=== PATIENT | female | born 1940 | race Caucasian/White ===

== ENCOUNTER 2020-06-03 13:57 | Outpatient (CLI) | payer OTHER, SELFPAY ==
[2020-06-03 14:34] LABS: Basophils Absolute Auto 0.1 K/mm3 (0.0-0.1); Basophils Percent Auto 0.9 % (0.2-1.2); Eosinophils Absolute Auto 0.1 K/mm3 (0-0.3); Hematocrit 42.7 % (37.0-47.0); Hemoglobin 14.5 g/dL (12.0-15.0); Immature Granulocyte Absolute 0.02 K/mm3 (0.00-0.031); Immature Granulocyte Percent A 0.3 % (0-0.5); Lymphocytes Absolute Auto 2.18 K/mm3 (0.9-3.2); Lymphocytes Percent Auto 28.3 % (18.3-44.2); Mean Corpuscular Hemoglobin 32.6 pg (26-34); Mean Platelet Volume 8.8 fl (7.4-10.4); Monocytes Absolute Auto 0.8 K/mm3 (0.1-0.6); Monocytes Percent Auto 10.1 % (2.6-8.5); Neutrophils Absolute Auto 4.6 K/mm3 (1.3-6.7); Neutrophils Percent Auto 59.4 % (45.5-73.1); Platelet Count Result 285 k/mm3 (150-375); Red Blood Count 4.45 M/mm3 (4.2-5.4); Red Cell Distribution Width 12.1 % (11.5-14.5); White Blood Count 7.7 K/mm3 (4.5-10.0)
[2020-06-03 14:45] LABS: Alanine Aminotransferase 19 U/L (4-35); Albumin Level 4.4 g/dL (3.5-5.1); Alkaline Phosphatase 87 U/L (38-126); Anion Gap 11.1 mmol/L (7-16); Aspartate Amino Transferase 27 U/L (14-36); Bilirubin,Total 0.4 mg/dL (0.2-1.3); Blood Urea Nitrogen 11 mg/dL (7-17); Calcium 10.2 mg/dL (8.4-10.2); Carbon Dioxide 27 mmol/L (22-30); Chloride 102 mmol/L (98-107); Estimated Glomerular Filt Rate > 60; Glucose 82 mg/dL (65-105); Potassium 4.1 mmol/L (3.4-5.0); Sodium 136 mmol/L (137-145)
[2020-06-03 15:08] LABS: Creatinine Urine 41.7 mg/dL
[2020-06-03 15:13] LABS: MALB Creatinine Ratio 21.1 mg/g (0-30); Microalbumin Urine Random 8.8 mg/L (0-16.7)
== END 2020-06-03 13:58 | disposition home or self-care (01) ==
PROVIDERS: PCP Internal Medicine; Visit Provider Internal Medicine
DX: I10 Essential (primary) hypertension (principal)
CPT/HCPCS: 36415; 80053; 82043; 84443; 85025

== ENCOUNTER 2021-02-15 12:28 | Outpatient (CLI) | payer OTHER, SELFPAY ==
--- NOTE | ~2021-02-15 | XR_ITS ---
EXAMINATION: XR hand BI arthritis min 3V EXAM DATE: 02/15/2021 12:51 INDICATION: M19.90 - Unspecified osteoarthritis, unspecified site. TECHNIQUE: Right hand frontal, lateral and oblique projections obtained and reviewed. Left hand fron marce, lateral and oblique projections obtained and reviewed. Catchers projection of both hands. There is no prior study for comparison. FINDINGS: Right hand: There is severe triscaphe and 1st carpometacarpal joint primary osteoarthritis, moderate at the 1st MCP and IP joints. There is mild to moderate 2nd and 3rd DIP primary osteoarthritis. Othe rwise mild polyarticular osteoarthritis. There are no bony erosions identified. There are no acute f ractures identified. Left hand: Moderate triscaphe and 1st carpometacarpal joint primary osteoarthritis, mild to moderate at the 1st MCP and IP joints. Mild to moderate primary osteoarthritis 2nd MCP joint. Otherwise mild p olyarticular osteoarthritis. There are no bony erosions identified. There are no acute fractures or d islocations identified. IMPRESSION: Bilateral hand polyarticular osteoarthritis, right hand more affected. Reviewed, dictated and finalized at location A. IMPRESSION: Bilateral hand polyarticular osteoarthritis, right hand more affec james.
== END 2021-02-15 12:29 | disposition home or self-care (01) ==
PROVIDERS: PCP Internal Medicine; Visit Provider Internal Medicine
DX: M19.90 Unspecified osteoarthritis, unspecified site (principal)
CPT/HCPCS: 73130

== ENCOUNTER 2021-02-16 11:05 | Outpatient (CLI) | payer OTHER, SELFPAY ==
[2021-02-16 11:34] LABS: Basophils Absolute Auto 0.1 K/mm3 (0.0-0.1); Basophils Percent Auto 0.7 % (0.2-1.2); Eosinophils Absolute Auto 0.1 K/mm3 (0-0.3); Eosinophils Percent Auto 1.6 % (0-4.4); Hematocrit 44.1 % (37.0-47.0); Hemoglobin 14.6 g/dL (12.0-15.0); Immature Granulocyte Absolute 0.01 K/mm3 (0.00-0.031); Immature Granulocyte Percent A 0.1 % (0-0.5); Lymphocytes Absolute Auto 2.64 K/mm3 (0.9-3.2); Lymphocytes Percent Auto 32.7 % (18.3-44.2); Mean Corpuscular HGB Conc 33.1 g/dl (32-36); Mean Corpuscular Hemoglobin 31.9 pg (26-34); Mean Corpuscular Volume 96.5 fl (80-100); Monocytes Absolute Auto 0.7 K/mm3 (0.1-0.6); Monocytes Percent Auto 8.3 % (2.6-8.5); Neutrophils Absolute Auto 4.6 K/mm3 (1.3-6.7); Neutrophils Percent Auto 56.6 % (45.5-73.1); Platelet Count Result 339 k/mm3 (150-375); Red Blood Count 4.57 M/mm3 (4.2-5.4); Red Cell Distribution Width 12.1 % (11.5-14.5); White Blood Count 8.1 K/mm3 (4.5-10.0)
[2021-02-16 11:48] LABS: Alanine Aminotransferase 19 U/L (4-35); Albumin Level 4.5 g/dL (3.5-5.1); Alkaline Phosphatase 83 U/L (38-126); Anion Gap 5 mmol/L (8-16); Aspartate Amino Transferase 29 U/L (14-36); Bilirubin,Total 0.5 mg/dL (0.2-1.3); Blood Urea Nitrogen 12 mg/dL (7-17); Carbon Dioxide 30 mmol/L (22-30); Chloride 106 mmol/L (98-107); Cholesterol 200 mg/dL (0-200); Estimated Glomerular Filt Rate > 60; Glucose 100 mg/dL (65-105); HDL Direct 50 mg/dL; Potassium 4.1 mmol/L (3.4-5.0); Sodium 141 mmol/L (137-145); Triglycerides 106 mg/dL (<150)
[2021-02-16 11:58] LABS: LDL Cholesterol Direct 123 mg/dL
[2021-02-16 12:02] LABS: Erythrocyte Sedimentation Rate 16 mm/hr (0-20)
[2021-02-16 12:03] LABS: Rheumatoid Factor < 8.6 IU/ML (<12)
[2021-02-20 09:49] LABS: Anti Cyclic Citrullinated Pept <16 Units (<20)
[2021-02-20 20:29] LABS: CRP, High Sensitivity 1.5 mg/L (***)
== END 2021-02-16 11:06 | disposition home or self-care (01) ==
PROVIDERS: PCP Internal Medicine; Visit Provider Internal Medicine
DX: M19.90 Unspecified osteoarthritis, unspecified site (principal); I10 Essential (primary) hypertension; E55.9 Vitamin D deficiency, unspecified; E04.1 Nontoxic single thyroid nodule; E78.2 Mixed hyperlipidemia
CPT/HCPCS: 36415; 80053; 80061; 82306; 85025; 85652; 86141; 86200; 86430

== ENCOUNTER 2021-08-18 08:08 | Outpatient (CLI) | payer OTHER, SELFPAY ==
[2021-08-18 08:57] LABS: Alanine Aminotransferase 19 U/L (4-35); Alkaline Phosphatase 94 U/L (38-126); Anion Gap 7 mmol/L (8-16); Aspartate Amino Transferase 28 U/L (14-36); Bilirubin,Total 0.7 mg/dL (0.2-1.3); Blood Urea Nitrogen 12 mg/dL (7-17); Calcium 10.7 mg/dL (8.4-10.2); Carbon Dioxide 30 mmol/L (22-30); Chloride 103 mmol/L (98-107); Estimated Glomerular Filt Rate > 60; Glucose 103 mg/dL (65-110); Potassium 4.3 mmol/L (3.4-5.0); Sodium 140 mmol/L (137-145)
[2021-08-18 09:49] LABS: Vitamin D 25 Hydroxy 84.9 ng/mL
== END 2021-08-18 08:09 | disposition home or self-care (01) ==
PROVIDERS: PCP Internal Medicine; Visit Provider Internal Medicine
DX: E55.9 Vitamin D deficiency, unspecified (principal); I10 Essential (primary) hypertension
CPT/HCPCS: 36415; 80053; 82306; 84443

== ENCOUNTER → 2022-02-14 11:05 | Outpatient (CLI) | payer OTHER, SELFPAY ==
--- NOTE | ~2022-02-14 | DEXA_ITS ---
Bone Density Report Name: ELENITA KING Age: 81 Sex: Female Ethnicity: White Date of : 1940 Indication: postmenopausal; screening for osteoporosis; height loss; Referring Provider: JUANCHO POWER Study: Bone densitometry was performed. Exam Date: February 14, 2022 Accession number: [id number] Bone Density: Region BMD T-score Z-score Classification AP Spine (L1-L4) 0.905 -1.3 1.5 Osteopenia Femoral Neck (Left) 0.452 -3.6 -1.2 Osteoporosis Total Hip (Left) 0.577 -3.0 -0.8 Osteoporosis Femoral Neck (Right) 0.454 -3.6 -1.2 Osteoporosis Total Hip (Right) 0.588 -2.9 -0.7 Osteoporosis Total Hip Mean 0.583 -3.0 -0.8 Osteoporosis World Health Organization criteria for BMD impression classify patients as: Normal (T-score at or above -1.0), Osteopenia (T-score between -1.0 and -2.5), or Osteoporosis (T-score at or below -2.5). 10-year Fracture Risk: FRAX not reported because: Some T-score for Spine Total or Hip Total or Femoral Neck at or below -2.5 Clinical Information Provided by Patient: Smokes Has used the following medications: Vitamin D Patient maximum height was 64 Menopause Age: 49 No regular weight bearing exercise Onset of menses at age 12 Number of children 3 Impression: The patient has osteoporosis, based on the Left Femoral Neck T-score. The patient has risk factors, including: smoking. Discussion: INCREASED RISK OF FRACTURE. BONE DENSITY IS UNDESIRABLY LOW AT ONE OR MORE SKELETAL SITES, CONSISTENT WITH POSTMENOPAUSAL OSTEOPOROSIS. This patient's lowest T-score meets the World Health Organization's (WHO) criteria for osteoporosis at one or more sites (T-score -2.5 or below). In untreated patients, the risk of osteoporotic fracture increases approximately two-fold for each 1.0 SD decrease in T-score. Low bone density is not the only risk factor for fracture; also consider factors such as patient's age, frailty or poor health, risk of falling, risk of injury, previous osteoporotic fracture, family history of osteoporosis, cigarette smoking, low body weight, etc. Not everyone with low bone mineral density has osteoporosis; osteomalacia and other metabolic bone disorders should also be considered. Patients who have osteoporosis should be evaluated for specific diseases and conditions (secondary causes) that may cause or contribute to bone loss. The [place] [employer]ocrinologists (AACE) and National Osteoporosis Foundation (NOF) recommend pharmacologic intervention for all postmenopausal women whose T-score is in this range. The patient should follow a healthful lifestyle (good nutrition with adequate calcium and vitamin D, and appropriate weight-bearing exercise). Follow-Up: Consider a repeat BMD and Vertebral Fracture Assessment (VFA) exam in 2 years or sooner if medically necessa
== END ==
PROVIDERS: PCP Internal Medicine; Visit Provider Internal Medicine
DX: Z78.0 Asymptomatic menopausal state (principal); M85.88 Other specified disorders of bone density and structure, other site; M81.0 Age-related osteoporosis without current pathological fracture
CPT/HCPCS: 77080

== ENCOUNTER 2022-02-14 13:10 | Outpatient (CLI) | payer OTHER, SELFPAY ==
[2022-02-14 12:52] LABS: Basophils Absolute Auto 0.1 K/mm3 (0.0-0.1); Basophils Percent Auto 0.7 % (0.2-1.2); Eosinophils Absolute Auto 0.1 K/mm3 (0-0.3); Eosinophils Percent Auto 1.5 % (0-4.4); Hematocrit 41.2 % (37.0-47.0); Hemoglobin 13.9 g/dL (12.0-15.0); Immature Granulocyte Absolute 0.02 K/mm3 (0.00-0.031); Immature Granulocyte Percent A 0.2 % (0-0.5); Lymphocytes Absolute Auto 2.18 K/mm3 (0.9-3.2); Lymphocytes Percent Auto 26.8 % (18.3-44.2); Mean Corpuscular HGB Conc 33.7 g/dl (32-36); Mean Corpuscular Hemoglobin 32.3 pg (26-34); Mean Corpuscular Volume 95.8 fl (80-100); Mean Platelet Volume 8.7 fl (7.4-10.4); Monocytes Absolute Auto 0.9 K/mm3 (0.1-0.6); Monocytes Percent Auto 11.1 % (2.6-8.5); Neutrophils Absolute Auto 4.9 K/mm3 (1.3-6.7); Neutrophils Percent Auto 59.7 % (45.5-73.1); Platelet Count Result 275 k/mm3 (150-375); Red Cell Distribution Width 12.1 % (11.5-14.5); White Blood Count 8.1 K/mm3 (4.5-10.0)
[2022-02-14 13:03] LABS: Alanine Aminotransferase 20 U/L (4-35); Albumin Level 4.4 g/dL (3.5-5.1); Alkaline Phosphatase 87 U/L (38-126); Anion Gap 6 mmol/L (8-16); Aspartate Amino Transferase 29 U/L (14-36); Bilirubin,Total 0.3 mg/dL (0.2-1.3); Blood Urea Nitrogen 15 mg/dL (7-17); Calcium 10.1 mg/dL (8.4-10.2); Carbon Dioxide 29 mmol/L (22-30); Chloride 104 mmol/L (98-107); Cholesterol 228 mg/dL (0-200); Estimated Glomerular Filt Rate > 60; Glucose 90 mg/dL (65-110); HDL Direct 51 mg/dL; Potassium 4.1 mmol/L (3.4-5.0); Sodium 139 mmol/L (137-145); Triglycerides 119 mg/dL (<150)
[2022-02-14 13:15] LABS: LDL Cholesterol Direct 129 mg/dL
[2022-02-14 13:28] LABS: MALB Creatinine Ratio 49.7 mg/g (0-30); Microalbumin Urine Random 15.9 mg/L (0-16.7)
[2022-02-14 13:38] LABS: Vitamin D 25 Hydroxy 79.2 ng/mL
== END 2022-02-14 13:11 | disposition home or self-care (01) ==
LOC: ANHLAB 13:10
PROVIDERS: PCP Internal Medicine; Visit Provider Internal Medicine
DX: M81.0 Age-related osteoporosis without current pathological fracture (principal); E78.5 Hyperlipidemia, unspecified; Z78.0 Asymptomatic menopausal state
CPT/HCPCS: 36415; 80053; 80061; 82043; 82306; 85025

== ENCOUNTER 2022-08-12 11:19 | Outpatient (CLI) | payer OTHER, SELFPAY ==
[2022-08-12 11:46] LABS: Alanine Aminotransferase 20 U/L (6-35); Albumin Level 4.4 g/dL (3.5-5.1); Alkaline Phosphatase 92 U/L (38-126); Anion Gap 9 mmol/L (8-16); Aspartate Amino Transferase 29 U/L (14-36); Bilirubin,Total 0.4 mg/dL (0.2-1.3); Blood Urea Nitrogen 12 mg/dL (7-17); Calcium 10.1 mg/dL (8.4-10.2); Carbon Dioxide 28 mmol/L (22-30); Chloride 102 mmol/L (98-107); Cholesterol 188 mg/dL (0-200); Estimated Glomerular Filt Rate > 60; Glucose 110 mg/dL (65-110); HDL Direct 48 mg/dL; Potassium 4.3 mmol/L (3.4-5.0); Sodium 139 mmol/L (137-145); Triglycerides 92 mg/dL (<150)
[2022-08-12 11:57] LABS: LDL Cholesterol Direct 115 mg/dL
[2022-08-12 13:37] LABS: Vitamin D 25 Hydroxy 74.1 ng/mL
== END 2022-08-12 11:20 | disposition home or self-care (01) ==
PROVIDERS: PCP Internal Medicine; Visit Provider Internal Medicine
DX: E78.5 Hyperlipidemia, unspecified (principal); Z79.899 Other long term (current) drug therapy; E04.1 Nontoxic single thyroid nodule; E55.9 Vitamin D deficiency, unspecified
CPT/HCPCS: 36415; 80053; 80061; 82306; 84443

== ENCOUNTER 2022-12-04 08:39 | Emergency (ER) | payer OTHER, MEDICAID, SELFPAY ==
[2022-12-04] VITALS (9 sets, daily range): BP systolic 119–183; BP diastolic 64–101; PULSE 71–87; RESP 14–18; TEMP 36.4; O2SAT 96–100
--- NOTE | ~2022-12-04 | CT_ITS ---
EXAMINATION: CT brain wo con DATE: 12/04/2022 09:30 INDICATION: Falls. TECHNIQUE: Computed tomography (CT) of the head was performed without intravenous contrast. The mA wa s adjusted according to patient size. Iterative reconstruction technique was employed. The dose-lengt h product was 605.33 mGy-cm. COMPARISON: Head CT 06/24/2014 FINDINGS: There are small old infarcts in right cerebellum. There is an old lacunar infarct in right caudate nucleus. There is an old infarct in left occipital lobe. There are scattered areas of low att enuation in the cerebral white matter. There is no intracranial hemorrhage, acute infarction, or abno rmal intracranial mass lesion. The ventricles are normal in size. The paranasal sinuses are clear. Th ere are likely changes of ocular lens replacement surgeries. There is a small left mastoid effusion. IMPRESSION: 1. 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 2. Moderate nonspecific cerebral white matter disease, which likely represents chronic small vessel i schemic disease, worsened from 06/24/2014. Reviewed, dictated and finalized at location A. D BONER IMPRESSION: 1. 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 2. Moderate nonspecific cerebral white matter disease, which likely represents chronic small vessel ischemic disease, worsened from 06/24/2014.
--- NOTE | ~2022-12-04 | XR_ITS ---
EXAMINATION: XR ribs RT 2V w CXR 2V DATE: 12/04/2022 13:22 INDICATION: Right rib pain. TECHNIQUE: Frontal and lateral views of the chest and 2 views on 3 radiographs of the right ribs were obtained. COMPARISON: None. FINDINGS: CHEST TWO VIEWS: The lungs are hyperexpanded, consistent with emphysema. There is mild atelectasis ve rsus scarring at right lung base and mild scarring at right lung apex. A calcified left lung nodule a nd calcified left hilar and mediastinal lymph nodes are consistent with old granulomatous disease. No pleural effusion or pneumothorax. The heart size is normal. RIGHT RIBS: There are fractures of right eighth and ninth ribs. IMPRESSION: 1. Fractures of right eighth and ninth ribs. 2. Emphysema. 3. Mild atelectasis versus scarring at right lung base and mild scarring at right lung apex. Reviewed, dictated and finalized at location A. SCREEN OPERATOR IMPRESSION: 1. Fractures of right eighth and ninth ribs. 2. Emphysema. 3. Mild atelectasis versus scarring at right lung base and mild scarring at rig ht lung apex.
--- NOTE | 2022-12-04 10:23 | ECG_ITS ---
Measurements Intervals [place] Rate: 77 P: 66 GA: 151 QRS: -37 QRSD: 81 T: -18 QT: 382 QTc: 435 Interpretive Statements SINUS RHYTHM WITH SINUS ARRHYTHMIA LEFT AXIS DEVIATION LOW QRS VOLTAGE IN PRECORDIAL LEADS BORDERLINE T WAVE ABNORMALITY- INFERIOR LEADS BASELINE ARTIFACT- I, II, III, AVR, AVL, AVF, V1 BORDERLINE ECG NO PREVIOUS ECG AVAILABLE FOR COMPARISON Electronically Signed On 12-04-2022 14:06:28 JUNIOR JAVA DEVELOPER by Gasper Mercado D.O.
[2022-12-04 10:47] LABS: Basophils Percent Auto 0.4 % (0.2-1.2); Eosinophils Absolute Auto 0.1 K/mm3 (0-0.3); Hematocrit 40.4 % (37.0-47.0); Hemoglobin 13.3 g/dL (12.0-15.0); Immature Granulocyte Absolute 0.02 K/mm3 (0.00-0.031); Immature Granulocyte Percent A 0.2 % (0-0.5); Lymphocytes Absolute Auto 1.77 K/mm3 (0.9-3.2); Lymphocytes Percent Auto 19.2 % (18.3-44.2); Mean Corpuscular HGB Conc 32.9 g/dl (32-36); Mean Corpuscular Hemoglobin 32.3 pg (26-34); Mean Corpuscular Volume 98.1 fl (80-100); Mean Platelet Volume 8.4 fl (7.4-10.4); Monocytes Absolute Auto 0.8 K/mm3 (0.1-0.6); Monocytes Percent Auto 8.5 % (2.6-8.5); Neutrophils Absolute Auto 6.5 K/mm3 (1.3-6.7); Neutrophils Percent Auto 70.7 % (45.5-73.1); Platelet Count Result 336 k/mm3 (150-375); Red Blood Count 4.12 M/mm3 (4.2-5.4); Red Cell Distribution Width 12.2 % (11.5-14.5); White Blood Count 9.2 K/mm3 (4.5-10.0)
[2022-12-04 10:57] LABS: Alanine Aminotransferase 21 U/L (6-35); Alkaline Phosphatase 120 U/L (38-126); Anion Gap 3 mmol/L (8-16); Aspartate Amino Transferase 27 U/L (14-36); Bilirubin,Total 0.5 mg/dL (0.2-1.3); Blood Urea Nitrogen 13 mg/dL (7-17); Calcium 10.1 mg/dL (8.4-10.2); Carbon Dioxide 31 mmol/L (22-30); Chloride 102 mmol/L (98-107); Estimated CRCL calculation 39 ml/min; Estimated Glomerular Filt Rate > 60; Glucose 101 mg/dL (65-110); Potassium 3.8 mmol/L (3.4-5.0); Sodium 136 mmol/L (137-145)
[2022-12-04 12:15] LABS: Appearance Urine Cloudy (Clear); Bilirubin Urine Negative (Negative); Blood Urine Negative (Negative); Color Urine Yellow (Yellow); Glucose Urine UA Negative (Negative); Ketones Urine Negative (Negative); Leukocyte Esterase Ur 1+ LEU/UL (Negative); Nitrate Urine Negative (Negative); Protein Urine Negative (Negative); Specific Grav Ur 1.015 (1.001-1.035); Urobilinogen Urine 0.2 mg/dL (<2.0)
[2022-12-04 12:20] LABS: Add Urine Microscopic? YES; Amorphous Sediment Urine Few; Bacteria Urine Trace /hpf; Mucus Urine Rare /lpf; Squamous Epithelial Cell Urine Rare /hpf (Few)
--- NOTE | 2022-12-04 13:09 | ED.SYNCOPE ---
HPI - Syncope General Chief Complaint: Syncope Stated Complaint: rt sided rib pain s/p glf x 2 this week Time Seen by Provider: 12/04/22 10:33 History of Present Illness HPI narrative: Patient is an 81-year-old female who presents ER status post syncope. Patient reports she was walking at her home and then just woke up on the ground. She is unsure how she wound up there. Does not recall tripping on anything. No prodrome of racing the heart or lightheadedness/dizziness. Reports this happened to her a couple days ago as well. Related Data Home Medications Medication Instructions Recorded Confirmed aspirin 81 mg tablet,delayed 81 mg PO DAILY 01/01/20 02/21/22 release multivitamin 1 tablet PO DAILY 01/01/20 02/21/22 cholecalciferol (vitamin D3) 25 25 mcg PO DAILY 02/19/21 02/21/22 mcg (1,000 unit) capsule Allergies Allergy/AdvReac Type Severity Reaction Status Date / Time alendronate sodium Allergy Unknown Itching Verified 02/21/22 10:31 codeine Allergy Unknown Headache Verified 02/21/22 10:31 simvastatin Allergy Unknown Itching Verified 02/21/22 10:31 Review of Systems Review of Systems: All systems reviewed & are unremarkable except as noted in HPI and below Constitutional: Constitutional: Denies chills, Denies fatigue and Denies fever(s) ENT: Denies nasal congestion and Denies sore throat Cardiovascular: Cardiovascular: Denies chest pain, Denies rapid heart rate and Denies radiating jaw, neck or arm pain Respiratory: Respiratory: Denies cough and Denies dyspnea Gastrointestinal: Gastrointestinal: Denies abdominal pain, Denies nausea and Denies vomiting Neurologic: Reports syncope, Denies headache(s), Denies focal weakness and Denies numbness [facility] Past Medical History Medical History (Updated 12/04/22 @ 15:06 by Todd Yang MD) Carpal tunnel syndrome Dyslipidemia Hyperparathyroidism Osteoporosis Family History Family History Mother Family history of heart disease in male family member before age 55 Social History Social History Smoking packs per day: 1 Smoking cigarettes per day: 20.0 Years smoked: 50 Smoking pack-years: 50.00 Smoking status: Current every day smoker Tobacco type: cigarettes Second hand tobacco smoke exposure: No Alcohol intake: never Substance use: never Substance use type: does not use Exam Narrative: GENERAL: Well-appearing, well-nourished, and in no acute distress. HEAD: Normocephalic, atraumatic. EYES: PERRL and EOMI. ENT: Mucous membranes moist. CHEST: Clear to auscultation. No respiratory distress. Tender palpation right posterior chest wall near rib #9 without bruising or swelling. No crepitus with palpation. HEART: Regular rate and rhythm. Normal peripheral pulses. ABDOMEN: Soft, nontender, nondistended. EXTREMITIES: Normal range of motion. No edema. SKIN: Warm, dry, no rash. NEURO: Alert and oriented x3. PSYCH: Normal mood and affect. Course Vital Signs Vital signs: Vital Signs Temperature 97.6 F 12/04/22 09:03 Pulse Rate 76 12/04/22 09:03 Respiratory Rate 14 12/04/22 09:03 Blood Pressure 149/89 H 12/04/22 09:03 Pulse Oximetry 99 12/04/22 09:03 Temperature 97.6 F 12/04/22 09:03 Pulse Rate 71 12/04/22 13:59 Respiratory Rate 18 12/04/22 13:59 Blood Pressure 134/64 12/04/22 13:59 Pulse Oximetry 97 12/04/22 13:59 Oxygen Delivery Room Air 12/04/22 10:24 MDM - Syncope Lab Data 12/04/22 10:32 12/04/22 10:32 Labs: Lab Results 12/04/22 12/04/22 12/04/22 Range/Units 10:32 10:32 12:10 WBC 9.2 (4.5-10.0) K/mm3 RBC 4.12 L (4.2-5.4) M/mm3 Hgb 13.3 (12.0-15.0) g/dL Hct 40.4 (37.0-47.0) % MCV 98.1 (80-100) fl MCH 32.3 (26-34) pg MCHC 32.9 (32-36) g/dl RDW 12.2 (11.5-14.5) % Plt Count 336 (150-
--- NOTE | 2022-12-04 14:50 | PC.NURSE ---
pt states she does not want to be admitted to hospital and wants to go home. states no one will be with me here, no one will be with me at home. I'd rather just be at home. pt informed of risks of going home related her unexplained syncope and falls. pt verbalized understanding but states she wants to go home. notified
== END 2022-12-04 16:00 | disposition left against medical advice (07) ==
PROVIDERS: Emergency Provider Emergency Medicine; PCP Internal Medicine
DX: S22.41XA Multiple fractures of ribs, right side, initial encounter for closed fracture (principal); E78.5 Hyperlipidemia, unspecified; E21.3 Hyperparathyroidism, unspecified; M81.0 Age-related osteoporosis without current pathological fracture; F17.210 Nicotine dependence, cigarettes, uncomplicated; R82.998 Other abnormal findings in urine; J43.9 Emphysema, unspecified; W18.39XA Other fall on same level, initial encounter
CPT/HCPCS: 36415; 70450; 71046; 71100; 80053; 81001; 85025; 87086; 93005; 99284

== ENCOUNTER 2023-01-19 13:01 | Emergency (ER) | payer OTHER, MEDICAID, SELFPAY ==
--- NOTE | ~2023-01-19 | CT_ITS ---
EXAMINATION: CT cervical spine wo con DATE: 01/19/2023 13:37 INDICATION: Fall. Posterior head injury on concrete. TECHNIQUE: Computed tomography (CT) of the cervical spine was performed without intravenous contrast. Automated exposure control and iterative reconstruction technique were employed. Exam dose: 97.08 m Gy-cm total exam DLP. COMPARISON: None FINDINGS: C1 and C2 are normally aligned and the odontoid process is intact. No fracture or dislocati on or locked facet or prevertebral soft tissue swelling. Mild degenerative disc disease at C2-3, C3-4. Moderately severe degenerative disc disease at C4-5 and C5-6 with associated mild retrolisthesis.. Moderate degenerative disc disease at C6-7. There is degenerative change at the apophyseal joints and C4-5, C5-6 and C6-7 uncovertebral joints. IMPRESSION: Cervical spondylosis; no fracture or dislocation or locked facet Reviewed, dictated and finalized at Location A. Reviewed, dictated and finalized at location L. RNER
--- NOTE | ~2023-01-19 | CT_ITS ---
EXAMINATION: CT brain wo con DATE: 01/19/2023 13:37 INDICATION: Fall. Struck posterior head on concrete. TECHNIQUE: Computed tomography (CT) of the head was performed without intravenous contrast. The mA wa s adjusted according to patient size. Iterative reconstruction technique was employed. Exam dose: 68 1.00 mGy-cm total exam DLP. COMPARISON: 12/04/2022 CT brain FINDINGS: Old right cerebellar, left occipital and right caudate nucleus infarcts. There is nonspecif ic diminished attenuation of the cerebral white matter, likely due to chronic small vessel ischemic c hanges. Bilateral vertebral artery calcification. The left vertebral artery is dominant. Basilar artery and b ilateral carotid siphon and supraclinoid internal carotid artery calcification. No intracranial mass lesion or hemorrhage or recent cerebrovascular accident, midline shift or mass e ffect is detected. No subdural or epidural hematoma. Posterior left occipital hematoma. No skull fracture is detected. No coup or contrecoup intracranial injury is observed. The mastoid air cells and paranasal sinuses are normally developed and aerated. IMPRESSION: Posterior left occipital cephalohematoma; no skull fracture or acute intracranial findin g Reviewed, dictated and finalized at Location A. Reviewed, dictated and finalized at location L. ER'S HELPER IMPRESSION: Posterior left occipital cephalohematoma; no skull fracture or acu te intracranial finding
[2023-01-19 13:00] VITALS: BP 160/97; PULSE 74; RESP 18; TEMP 36.5; O2SAT 95
--- NOTE | 2023-01-19 13:20 | ED.FALL ---
HPI - Fall General Chief Complaint: Fall Stated Complaint: GLF, low pulse ox Time Seen by Provider: 01/19/23 13:15 History of Present Illness HPI Narrative: Patient is an 82-year-old female presenting after a ground-level fall. Patient states that she was walking out of the doctor's office when she miscalculated a step and lost her balance. States that she fell back striking the back of her head. She denies losing consciousness. She remembers the entire event. States she has some soreness on the left side of the back of her head. Denies neck or back pain. Denies extremity injuries. Denies chest pain, shortness of breath, lightheadedness, abdominal pain, nausea. No numbness or weakness. Related Data Home Medications Medication Instructions Recorded Confirmed aspirin 81 mg tablet,delayed 81 mg PO DAILY 01/01/20 02/21/22 release multivitamin 1 tablet PO DAILY 01/01/20 02/21/22 cholecalciferol (vitamin D3) 25 25 mcg PO DAILY 02/19/21 02/21/22 mcg (1,000 unit) capsule Allergies Allergy/AdvReac Type Severity Reaction Status Date / Time alendronate sodium Allergy Unknown Itching Verified 01/19/23 11:17 codeine Allergy Unknown Headache Verified 01/19/23 11:17 simvastatin Allergy Unknown Itching Verified 01/19/23 11:17 Review of Systems Review of Systems: All systems reviewed & are unremarkable except as noted in HPI and below PMFSH Past Medical History Medical History Back pain, chronic Carpal tunnel syndrome Dyslipidemia Hyperparathyroidism Osteoporosis Family History Family History Mother Family history of heart disease in male family member before age 55 Social History Social History Smoking packs per day: 1 Smoking cigarettes per day: 20.0 Years smoked: 50 Smoking pack-years: 50.00 Smoking status: Current every day smoker Tobacco type: cigarettes Second hand tobacco smoke exposure: No Alcohol intake: never Substance use: never Substance use type: does not use Exam Narrative: GENERAL: Well-appearing, well-nourished, and in no acute distress. HEAD: Normocephalic left occipital scalp with ecchymosis and tenderness, no hematomas or lacerations noted EYES: PERRLA and EOMI. ENT: Nares clear, no rhinorrhea or epistaxis. Mucous membranes moist. NECK: Supple. No midline tenderness of cervical, thoracic, or lumbar spine CHEST: Clear to auscultation. No respiratory distress. HEART: Regular rate and rhythm ABDOMEN: Soft, nontender, nondistended EXTREMITIES: Normal range of motion. No edema. SKIN: Warm, dry, no rash. NEURO: No focal deficits. Alert and oriented x3. PSYCH: Normal mood and affect. Course Vital Signs Vital signs: Vital Signs Temperature 97.7 F 01/19/23 13:00 Pulse Rate 74 01/19/23 13:00 Respiratory Rate 18 01/19/23 13:00 Blood Pressure 160/97 H 01/19/23 13:00 Pulse Oximetry 95 01/19/23 13:00 Oxygen Delivery Room Air 01/19/23 13:00 Temperature 97.7 F 01/19/23 13:00 Pulse Rate 74 01/19/23 16:10 Respiratory Rate 16 01/19/23 16:10 Blood Pressure 138/83 01/19/23 16:10 Pulse Oximetry 98 01/19/23 16:10 Oxygen Delivery Room Air 01/19/23 13:00 MDM - Fall MDM Narrative Medical decision making narrative: 82-year-old female presenting after ground-level fall. Vitals within normal limits. Exam remarkable for the above. Plan for CT head and cervical spine. Patient declining pain medication at this time. Patient had an episode of nausea prior to going to scanner that resolved spontaneously. CT head shows an occipital cephalohematoma but no other acute abnormalities. CT cervical spine shows no acute fractures or other injuries. On reevaluation, the patient is sitting comfortably in bed. She denies any further nausea. Denies current pain. Advised that she
[2023-01-19] MEDS: ONDANSETRON HCL ODT 4 MG TABLET PO (13:41)
[2023-01-19 15:33] VITALS: BP 151/72; PULSE 74; RESP 18; O2SAT 99
[2023-01-19] MEDS: MECLIZINE HCL 25 MG TABLET PO (15:33)
[2023-01-19 16:10] VITALS: BP 138/83; PULSE 74; RESP 16; O2SAT 98
== END 2023-01-19 17:07 | disposition home or self-care (01) ==
PROVIDERS: Emergency Provider Emergency Medicine; PCP Internal Medicine
DX: S00.03XA Contusion of scalp, initial encounter (principal); E78.5 Hyperlipidemia, unspecified; E21.3 Hyperparathyroidism, unspecified; M81.0 Age-related osteoporosis without current pathological fracture; F17.210 Nicotine dependence, cigarettes, uncomplicated; Z79.82 Long term (current) use of aspirin; M47.812 Spondylosis without myelopathy or radiculopathy, cervical region; W10.9XXA Fall (on) (from) unspecified stairs and steps, initial encounter
CPT/HCPCS: 70450; 72125; 99284; A9270

== ENCOUNTER 2023-08-15 13:23 | Outpatient (CLI) | payer OTHER, MEDICAID, SELFPAY ==
--- NOTE | 2023-08-15 14:00 | NEURO_ITS ---
Impression: # Non-diabetic complains of numbness of hands. # Left ulnar neuropathy across the elbow. # No Carpal Tunnel Syndrome. # Needle/EMG exam not requested. Nerve Conduction Studies Anti Sensory Summary Table Stim Site NR Peak (ms) P-T Amp (?V) Site1 Site2 Delta-P (ms) Dist (cm) [place] (m/s) Left Median Anti Sensory (2-3nd Digit) Wrist 3.2 61.9 Wrist 2-3nd Digit 3.2 14.0 44 Wrist 3.4 65.4 Wrist 2-3nd Digit 3.2 14.0 44 Right Median Anti Sensory (2-3nd Digit) Wrist 3.6 56.2 Wrist 2-3nd Digit 3.6 14.0 39 Wrist 3.4 39.9 Wrist 2-3nd Digit 3.6 14.0 39 Left Radial Anti Sensory (Base 1st Digit) Wrist 2.0 33.2 Wrist Base 1st Digit 2.0 0.0 Right Radial Anti Sensory (Base 1st Digit) Wrist 2.3 12.2 Wrist Base 1st Digit 2.3 0.0 Left Ulnar Anti Sensory (5th Digit) Wrist 2.8 46.4 Wrist 5th Digit 2.8 14.0 50 Right Ulnar Anti Sensory (5th Digit) Wrist 2.8 39.7 Wrist 5th Digit 2.8 14.0 50 Motor Summary Table Stim Site NR Onset (ms) O-P Amp (mV) Site1 Site2 Delta-0 (ms) Dist (cm) [place] (m/s) Left Median Motor (Abd Poll Brev) Wrist 3.4 2.0 Elbow Wrist 5.3 28.0 53 Elbow 8.7 1.9 Right Median Motor (Abd Poll Brev) Wrist 3.6 2.2 Elbow Wrist 4.5 26.0 58 Elbow 8.1 4.2 Left Ulnar Motor (Abd Dig Minimi) Wrist 2.2 6.4 A Elbow Wrist 5.5 27.0 49 A Elbow 7.7 4.8 B Elbow Wrist 3.6 20.0 56 B Elbow 5.8 5.8 Right Ulnar Motor (Abd Dig Minimi) Wrist 2.6 5.3 A Elbow Wrist 4.8 27.0 56 A Elbow 7.4 5.0 F Wave Studies NR F-Lat (ms) L-R F-Lat (ms) Left Median (Mrkrs) (Abd Poll Brev) 27.02 1.26 Right Median (Mrkrs) (Abd Poll Brev) 28.28 1.26 Left Ulnar (Mrkrs) (Abd Dig Min) 26.33 0.18 Right Ulnar (Mrkrs) (Abd Dig Min) 26.50 0.18 MTDD
== END 2023-08-15 13:24 | disposition home or self-care (01) ==
LOC: ANHNEURO 13:24
PROVIDERS: PCP Family Medicine; Visit Provider Plastic Surgery
DX: R20.2 Paresthesia of skin (principal); G56.22 Lesion of ulnar nerve, left upper limb
CPT/HCPCS: 95911

== ENCOUNTER → 2023-08-17 15:34 | Outpatient (CLI) | payer OTHER, MEDICAID, SELFPAY ==
--- NOTE | ~2023-08-17 | MR_ITS ---
EXAMINATION: MR brain/brain stem wo con DATE: 08/17/2023 16:38 INDICATION: Dizziness and giddiness. TECHNIQUE: Magnetic resonance imaging (MRI) of the brain and brainstem was performed without intraven ous contrast. COMPARISON: Head CT 01/19/2023 FINDINGS: There is an old infarct in left occipital lobe. There is an old infarct in the right cerebe llum. There is an old infarct in right caudate nucleus. There are scattered areas of nonspecific incr eased T2-weighted signal intensity in the cerebral white matter and [place]. There is no intracranial he morrhage, acute infarction, or abnormal intracranial mass lesion. The ventricles are normal in size. There are likely changes of ocular lens replacement surgeries. The paranasal sinuses are clear. The m astoid air cells are normal. IMPRESSION: 1. Old infarcts in the left occipital lobe, right caudate nucleus, right cerebellum. 2. Moderate nonspecific cerebral white matter disease and pontine disease, which likely represents ch ronic small vessel ischemic disease. Reviewed, dictated and finalized at location E. IMPRESSION: 1. Old infarcts in the left occipital lobe, right caudate nucleus, right cerebe llum. 2. Moderate nonspecific cerebral white matter disease and pontine disease, whic h likely represents chronic small vessel ischemic disease.
== END ==
PROVIDERS: PCP Family Medicine; Visit Provider Family Medicine
DX: R42 Dizziness and giddiness (principal); Z87.828 Personal history of other (healed) physical injury and trauma; R90.82 White matter disease, unspecified
CPT/HCPCS: 70551

== ENCOUNTER 2024-11-20 11:42 | Inpatient (IN) | payer OTHER, MEDICAID, SELFPAY ==
[2024-11-20] VITALS (27 sets, daily range): BP systolic 138–162; BP diastolic 85–110; PULSE 84–121; RESP 13–20; TEMP 36–36.7; O2SAT 81–100; BMI 19.5
--- NOTE | ~2024-11-20 | CT_ITS ---
CT brain wo con Ordering provider: Shlomo Villasenor MD History: 83 years Female with . fall . Comparison: None. Technique: CT of the head without contrast. Radiation reduction technique utilized. The dose-length product was 605.33 mGy-cm. FINDINGS: BRAIN PARENCHYMA AND CSF SPACES: Mild leukoaraiosis and diffuse cortical atrophy. Mild atheromatous d isease. Left occipital old infarct. Tiny right cerebellar lacunar infarct. Old lacunar infarct in the right caudate head. No midline shift, mass effect or hemorrhage. The brain parenchyma and CSF space s are otherwise normal. VISUALIZED PARANASAL SINUSES: Well aerated. MASTOIDS: Well aerated. BONES: The bones appear intact. SOFT TISSUES: Visualized nasopharynx is normal. Superficial soft tissues are normal. IMPRESSION: No acute intracranial findings. Multiple old infarcts.. Reviewed, dictated and finalized at location A. ACE ROOM SUPERVISOR
--- NOTE | ~2024-11-20 | XR_ITS ---
XR chest 2V Ordering provider: Shlomo Villasenor History: 83 years Female with . weakness, falling . Comparison: None. FINDINGS: MEDIASTINUM: The cardiac silhouette is slightly enlarged. Prominent janae. LUNGS: No infiltrates, effusions or pneumothorax. OTHER: No free air under the diaphragm. Healing rib fractures in the right hemithorax. Kyphosis is seen with degenerative changes. Compressio n fracture of T12 and L1. Retrolisthesis seen at the level of L1-L2. Compression fractures most likel y old is seen in T6, T7 and T8. IMPRESSION: No acute cardiopulmonary pathology. Multiple healing rib fractures in the right hemithorax. Multilevel compression fracture. Anterolisthesis at the level of L1-L2. MRI evaluation advised. Reviewed, dictated and finalized at location A. H FINISHER IMPRESSION: No acute cardiopulmonary pathology. Multiple healing rib fractures in the right hemithorax. Multilevel compression fracture. Anterolisthesis at the level of L1-L2. MRI trinity luation advised.
--- NOTE | ~2024-11-20 | XR_ITS ---
EXAMINATION: XR pelvis 1-2V DATE: 11/21/2024 12:55 INDICATION: Pelvic fracture. Fall. TECHNIQUE: An anteroposterior view of the pelvis was obtained. COMPARISON: Lumbar spine CT 11/20/2024 FINDINGS: There are fractures of the bilateral sacral ala. There is severe lumbar spondylosis. There is mild osteoarthritis of the hips. IMPRESSION: 1. Sacral insufficiency fractures. Reviewed, dictated and finalized at location A. UTIVE SEARCH CONSULTANT
--- NOTE | ~2024-11-20 | CT_ITS ---
EXAMINATION: CT thoracic lumbar wo con DATE: 11/20/2024 13:35 INDICATION: Back injury. Fall. TECHNIQUE: Computed tomography (CT) of the thoracic and lumbar spine was performed without intravenou s contrast. Automated exposure control and iterative reconstruction technique were employed. The dose -length product was 265.35 mGy-cm. COMPARISON: Chest 2 views 03/17/2024 FINDINGS: CT THORACIC SPINE: There is a 2.2 cm cavitary nodule in right lung lower lobe. Partially visualized a re fractures of right seventh-10th ribs. There is kyphosis of thoracic spine. There is a burst fractu re of T5 with 2/5 loss of height. There is mild chronic height loss of multiple vertebral bodies. The re is mildly decreased disc height at multiple levels. There is moderately decreased disc height from T4-T5 through T9-T10. There is multilevel facet joint osteoarthritis, severe at multiple levels on t he right. There is mild neural foraminal stenosis at multiple levels bilaterally. There is mild centr al canal stenosis from T7-T8 through T11-T12. CT LUMBAR SPINE: Partially visualizes a 3.6 cm fusiform aneurysm of infrarenal aorta. There is 5 mm r etrolisthesis of T12 on L1 and L1-L2 and 5 mm anterolisthesis of L4 on L5. There is severely decrease d disc height at T12-L1 and L1-L2, moderately decreased disc height at L2-L3, L3-L4, L4-L5, and sever serena decreased disc height at L5-S1. There are insufficiency fractures of the lateral sacral ala and S 2 body. The following disc levels are specifically discussed: T12-L1: The disc is bulging. There is mild bilateral facet joint osteoarthritis. There is moderate bi lateral neural foraminal stenosis. There is mild central canal stenosis. L1-L2: The disc is bulging. There is mild bilateral facet joint osteoarthritis. There is moderate summer ateral neural foraminal stenosis. There is mild central canal stenosis. L2-L3: The disc is bulging. There is severe bilateral facet joint osteoarthritis. There is moderate b ilateral neural foraminal stenosis. There is moderate central canal stenosis. L3-L4: The disc is bulging. There is mild bilateral facet joint osteoarthritis. There is moderate summer ateral neural foraminal stenosis. There is moderate central canal stenosis. L4-L5: The disc is bulging. There is severe bilateral facet joint osteoarthritis. There is moderate b ilateral neural foraminal stenosis. There is severe central canal stenosis. L5-S1: The disc is bulging. There is severe bilateral facet joint osteoarthritis. There is moderate b ilateral neural foraminal stenosis. There is moderate central canal stenosis. IMPRESSION: 1. 2.2 cm right lower lobe cavitary nodule suspicious for primary bronchogenic carcinoma. Consider no ncontrast low-dose chest CT in 1-3 months. 2. Age-indeterminate T5 burst fracture. 3. Partially visualized fractures of right seventh-10th ribs, likely subacute or chronic, new from 03/17/2024. 4. Moderate thoracic spondylosis. 5. 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 6. Acute/subacute sacral insufficiency fractures. 7. Severe lumbar spondylosis. Reviewed, dictated and finalized at location A. IC FINANCE SPECIALIST IMPRESSION: 1. 2.2 cm right lower lobe cavitary nodule suspicious for primary bronchogenic carcinoma. Consider noncontrast low-dose chest CT in 1-3 months. 2. Age-indeterminate T5 burst fracture. 3. Partially visualized fractures of right seventh-10th ribs, likely subacute o r chronic, new from 03/17/2024. 4. Moderate thoracic spondylosis. 5. 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 6. Acute/subacute sacral insufficiency fractures. 7. Severe lumbar spondylosis.
--- NOTE | ~2024-11-20 | CT_ITS ---
CT cervical spine wo con Ordering provider: Shlomo Villasenor MD History: . fall . Comparison: None. Technique: CT of the cervical spine was performed without contrast. Sagittal and coronal reformatted images were also obtained and reviewed. Automated exposure control and iterative reconstruction johnnie hnique were employed. The dose-length product was 88.71 mGy-cm. FINDINGS: VERTEBRAE: No definite subluxation or acute fracture. The step-off seen in the area of the base of th e dens is most likely artifactual. The occipital condyles are intact. DISC SPACES: Narrowing of the disc C4-C5. Multilevel facet joint disease. Multilevel uncovertebral jos int osteophyte arthritic changes. Narrowing of the right foramen at the level of C3-C4. Bilateral tessa rowing of the foramina at the level of C4-C5,C5-C6 and C6-C7.. PARASPINOUS SOFT TISSUES: Normal. IMPRESSION: No definite acute osseous abnormality cervical spine. The step-off seen at the base of the lateral rib is most likely artifactual. Clinical correlation and follow-up advised. Multilevel degenerative disc disease. Multilevel facet joint disease. Reviewed, dictated and finalized at location A. NING COORDINATOR IMPRESSION: No definite acute osseous abnormality cervical spine. The step-off seen at the base of the lateral rib is most likely artifactual. Cl inical correlation and follow-up advised. Multilevel degenerative disc disease. Multilevel facet joint disease.
--- NOTE | 2024-11-20 11:52 | ECG_ITS ---
Test Date: 2024-11-20 12:11:08 Measurements Intervals [place] Rate: 103 P: 62 MD: 129 QRS: -2 QRSD: 81 T: 51 QT: 353 QTc: 463 Interpretive Statements SINUS TACHYCARDIA MODERATE ST DEPRESSION [0.05+ mV ST DEPRESSION] No previous ECG available for comparison Electronically Signed On 11-21-2024 16:26:11 DOOR TO DOOR FUNDRAISING COLLECTOR by Gray Cope M.D.
[2024-11-20 12:20] LABS: Basophils Percent Auto 0.3 % (0.2-1.2); Eosinophils Absolute Auto 0.1 K/mm3 (0-0.3); Hematocrit 41.8 % (37.0-47.0); Hemoglobin 13.9 g/dL (12.0-15.0); Immature Granulocyte Absolute 0.05 K/mm3 (0.00-0.031); Immature Granulocyte Percent A 0.4 % (0-0.5); Lymphocytes Absolute Auto 1.73 K/mm3 (0.9-3.2); Lymphocytes Percent Auto 12.9 % (18.3-44.2); Mean Corpuscular HGB Conc 33.3 g/dl (32-36); Mean Corpuscular Hemoglobin 31.9 pg (26-34); Mean Corpuscular Volume 95.9 fl (80-100); Mean Platelet Volume 9.6 fl (7.4-10.4); Monocytes Absolute Auto 1.3 K/mm3 (0.1-0.6); Monocytes Percent Auto 9.9 % (2.6-8.5); Neutrophils Absolute Auto 10.1 K/mm3 (1.3-6.7); Neutrophils Percent Auto 75.5 % (45.5-73.1); Platelet Count Result 256 k/mm3 (150-375); Red Blood Count 4.36 M/mm3 (4.2-5.4); Red Cell Distribution Width 12.2 % (11.5-14.5); White Blood Count 13.4 K/mm3 (4.5-10.0)
[2024-11-20 13:25] LABS: Alanine Aminotransferase 21 U/L (6-35); Albumin Level 3.7 g/dL (3.5-5.1); Alkaline Phosphatase 98 U/L (38-126); Anion Gap 8 mmol/L (4-12); Aspartate Amino Transferase 37 U/L (14-36); Bilirubin,Total 0.8 mg/dL (0.2-1.3); Blood Urea Nitrogen 17 mg/dL (7-17); Calcium 9.9 mg/dL (8.4-10.2); Carbon Dioxide 24 mmol/L (22-30); Chloride 106 mmol/L (98-107); Estimated CRCL calculation 34 ml/min; Estimated Glomerular Filt Rate > 60; Glucose 101 mg/dL (65-110); Potassium 3.5 mmol/L (3.4-5.0); Sodium 138 mmol/L (137-145)
--- NOTE | 2024-11-20 13:47 | ED.FALL ---
HPI - Fall General Chief Complaint: Fall Stated Complaint: pain all over Time Seen by Provider: 11/20/24 12:44 History of Present Illness HPI Narrative: 83-year-old female presenting from home with a complaint of ground level fall. She normally ambulates with a walker and states she was trying to get from the kitchen to her bedroom without using it, she fell backwards and landed on her tailbone. She is not strike her head or lose consciousness and does not use any blood thinner medications. Patient states she lives at home and tried to get back to her bed by calling the floor where her neighbor found her and called EMS. Patient states that she is having pain in her buttock region, denies any neck pain or headache presently. No weakness in the arms or legs. No loss of continence with bowel or stool. No saddle anesthesias. She is able to move all extremities equally. She states when she is not moving she is not in any pain or distress but when she tries to sit up she has pain in her tailbone. Related Data Home Medications Medication Instructions Recorded Confirmed Last Taken Type aspirin 81 mg tablet,delayed 81 mg PO DAILY 01/01/20 11/20/24 11/19/24 History release multivitamin 1 tablet PO DAILY 01/01/20 11/20/24 11/19/24 History cholecalciferol (vitamin D3) 25 25 mcg PO DAILY 02/19/21 11/20/24 11/19/24 History mcg (1,000 unit) capsule Allergies Allergy/AdvReac Type Severity Reaction Status Date / Time alendronate sodium Allergy Unknown Itching Verified 08/06/24 09:17 codeine Allergy Unknown Headache Verified 08/06/24 09:17 simvastatin Allergy Unknown Itching Verified 08/06/24 09:17 Review of Systems Review of Systems: As reviewed above in HPI COUNT INCLUDES THE [facility] Past Medical History Medical History Back pain, chronic Carpal tunnel syndrome Dyslipidemia Osteoporosis Hyperparathyroidism Family History Family History Mother Family history of heart disease in male family member before age 55 Social History Social History Smoking packs per day: 1 Smoking cigarettes per day: 20.0 Years smoked: 50 Smoking pack-years: 50.00 Smoking status: Current every day smoker Second hand tobacco smoke exposure: No Alcohol intake: never Substance use: never Substance use type: does not use Do You Feel Safe in your Home?: Yes Lack of Transportation: No Lack of Food: Never True Current Housing: I Have Housing Concerned About Future Housing: No Difficulty Paying Gas/Electric Bills: No Difficulty Paying for Meds: No Currently Unemployed: No Education: High School Diploma/GED Difficulty w/ Childcare or Family Care: No Spiritual care concerns: No Exam Narrative: GENERAL: Thin and frail appearing but otherwise well-appearing and not in any acute distress. No complaints of pain without movement. HEAD: [Normocephalic, atraumatic.] EYES: [PERRLA and EOMI.] ENT: Nares clear, no rhinorrhea or epistaxis. Mucous membranes moist. NECK: Supple. CHEST: [Clear to auscultation. No respiratory distress.] HEART: [Regular rate and rhythm]. No murmur heard. [Normal peripheral pulses.] ABDOMEN: [Soft, nondistended], [nontender], [No rigidity or guarding] EXTREMITIES: Normal range of motion. [No edema.] No cervical thoracic or lumbar spinal tenderness although there is focal tenderness over the sacrum without any step-offs deformities. No overlying skin changes. Full range of motion bilateral lower extremities with full 5/5 strength with hip flexion and dorsi and plantar flexion of the ankle. Full mechanical door repairer strength bilateral upper extremities. No overlying step-offs deformities. SKIN: Warm, dry, no rash. NEURO: [No focal deficits]. Alert and oriented [x3.] PSYCH: [Normal mood and affect.] Course Vital Signs Vital signs: Vital Signs Temperature 36.4 C 11/20/24 11:45 Pulse Rate 84 11/20/24 11:45 Respiratory Rate 16 11/20/24 11:45 Blood Pressure 157/110 H 11/20/24 11:45 Temperature 36.0 C L 11/20/24 16:56 Pulse Rate 111 H 11/20/24 16:56 Respiratory Rate 20 11/20/24 16:56 Blood Pressure 138/87 11/20/24 16:56 Pulse Oximetry 99 11/20/24 16:56 Oxygen Delivery Room Air 11/20/24 16:45 MDM - Fall MDM Narrative Medical decision making narrative: 83-year-old female presenting after a ground level mechanical fall from home. Patient states she does not use any blood thinner medications and did not hit her head or lose consciousness. She normally ambulates with a walker and lives alone. She tried to get from the kitchen to the bedroom without using her walker and was too unsteady and fell backwards. She landed on her tailbone and states she has pain in her tailbone region. No other back pain. No loss of continence, no weakness or sensory deficits. She has no red flag symptoms of back pain node may be suspicious for a central pathology or spinal cord involvement. She has full strength and sensation throughout and unremarkable neurological assessment. She has focal pinpoint tenderness over tail bone which raises suspicion for a fracture dislocation. Low suspicion for other hip injury or any other cervical thoracic or lumbar spinal trauma. Given her age and risk factors we did order head CT as well as spinal imaging cleaning CT of the cervical thoracic and lumbar spine. Workup was ordered including blood work and a chest x-ray obtained. Patient states she has not any pain whatsoever when she lies completely flat. Workup shows a mild leukocytosis of 13.4, normal hemoglobin level. Chemistry panel within normal limits, normal renal function panel, normal CMP. Chest x-ray shows no acute cardiopulmonary process, multiple healing rib fractures seen. 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 CT cervical spine shows no definite acute osseous process, artifactual step-off of the lateral rib, multi level degenerative disc disease. Patient has no spinal tenderness in the cervical region or any restricted range of motion likely making any injury there unlikely. CT of the thoracic and lumbar spine shows an age-indeterminate T5 burst fracture. There is a right lower lobe cavitary lesion as already being followed up with her primary care provider and medicare sales executive suspicious for carcinoma. Multiple levels of vertebral height loss but no other fractures in the spine. There is acute and possibly even subacute sacral insufficiency fractures but more likely any acute side given patient's trauma to this area today and her pain complaint only after the injury. I consulted both Orthopedic surgery and neurological surgery further input and recommendations based on patient's spinal imaging. Patient was re-evaluated and still having no acute complaint while laying flat. She has no neurological deficits on her examination with normal strength and sensation throughout. Orthopedic surgery was spoken to with Dr. Arthur and we went over patient's pelvic fractures on exam. No acute emergency or any need for surgical intervention at this time and patient would benefit from occupational therapy physical therapy and rehabilitation. I spoke to neurological surgery with Dr. Valdez and we went over patient's spinal imaging results and vertebral injuries. No acute neurosurgical interventions needed based on our conversations at this time. Patient will be admitted to the hospitalist team for evaluation by the Surgical Specialists and for physical therapy, occupational therapy and potential placement for rehabilitation based on her injuries. Patient was okay with this plan of care. I spoke to the hospitalist service currently being covered by Gela the mid-level provider. After we discussed patient's care plan she was accepted to a medical-surgical bed at this time. Medical Records Attestation: I reviewed the patient's medical records. Lab Data Attestation: I reviewed the patient's lab results. 11/20/24 12:07 11/20/24 13:07 Labs: Lab Results 11/20/24 11/20/24 Range/Units 12:07 13:07 WBC 13.4 H (4.5-10.0) K/mm3 RBC 4.36 (4.2-5.4) M/mm3 Hgb 13.9 (12.0-15.0) g/dL Hct 41.8 (37.0-47.0) % MCV 95.9 (80-100) fl MCH 31.9 (26-34) pg MCHC 33.3 (32-36) g/dl RDW 12.2 (11.5-14.5) % Plt Count 256 (150-375) k/mm3 MPV 9.6 (7.4-10.4) fl Immature Gran % (Auto) 0.4 (0-0.5) % Neut % (Auto) 75.5 H (45.5-73.1) % Lymph % (Auto) 12.9 L (18.3-44.2) % Perry % (Auto) 9.9 H (2.6-8.5) % Eos % (Auto) 1.0 (0-4.4) % Baso % (Auto) 0.3 (0.2-1.2) % Lymph # (Auto) 1.73 (0.9-3.2) K/mm3 Perry # (Auto) 1.3 H (0.1-0.6) K/mm3 Eos # (Auto) 0.1 (0-0.3) K/mm3 Baso # (Auto) 0.0 (0.0-0.1) K/mm3 Abs Immat Gran (auto) 0.05 H (0.00-0.031) K/mm3 Absolute Neuts (auto) 10.1 H (1.3-6.7) K/mm3 Absolute Nucleated RBC 0.000 (0.0-0.012) K/mm3 Nucleated RBC % 0.0 (0.0-0.2) % Sodium 138 (137-145) mmol/L Potassium 3.5 (3.4-5.0) mmol/L Chloride 106 (98-107) mmol/L Carbon Dioxide 24 (22-30) mmol/L Anion Gap 8 (4-12) mmol/L BUN 17 (7-17) mg/dL Creatinine 0.79 (0.7-1.0) mg/dL Estim Creat Clear Calc 34 ml/min Estimated GFR > 60 (59 - ) Glucose 101 (65-110) mg/dL Calcium 9.9 (8.4-10.2) mg/dL Total Bilirubin 0.8 (0.2-1.3) mg/dL AST 37 H (14-36) U/L ALT 21 (6-35) U/L Alkaline Phosphatase 98 (38-126) U/L Total Protein 7.0 (6.3-8.2) g/dL Albumin 3.7 (3.5-5.1) g/dL Imaging Data Attestation: I personally reviewed and interpreted this imaging study as follows: My impression: Impressions Chest X-Ray 11/20/24 12:29 IMPRESSION: No acute cardiopulmonary pathology. Multiple healing rib fractures in the right hemithorax. Multilevel compression fracture. Anterolisthesis at the level of L1-L2. MRI evaluation advised. Head CT 11/20/24 12:42 IMPRESSION: No acute intracranial findings. Multiple old infarcts.. Cervical Spine CT 11/20/24 12:46 IMPRESSION: No definite acute osseous abnormality cervical spine. The step-off seen at the base of the lateral rib is most likely artifactual. Clinical correlation and follow-up advised. Multilevel degenerative disc disease. Multilevel facet joint disease. Thoracic/Lumbar Spine CT 11/20/24 14:20 IMPRESSION: 1. 2.2 cm right lower lobe cavitary nodule suspicious for primary bronchogenic carcinoma. Consider noncontrast low-dose chest CT in 1-3 months. 2. Age-indeterminate T5 burst fracture. 3. Partially visualized fractures of right seventh-10th ribs, likely subacute or chronic, new from 03/17/2024. 4. Moderate thoracic spondylosis. 5. 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 6. Acute/subacute sacral insufficiency fractures. 7. Severe lumbar spondylosis. Discharge Plan Discharge Clinical Impression: Sacral insufficiency fracture, Cavitary lesion of lung, Fall from ground level, Stable burst fracture of T5 vertebra, Debility Patient Disposition: Still a Patient Condition: Stable
[2024-11-20 16:08] LABS: Add Urine Microscopic? YES; Appearance Urine Cloudy (Clear); Bacteria Urine 1+ /hpf; Bilirubin Urine Negative (Negative); Blood Urine 2+ (Negative); Color Urine Dark Yellow (Yellow); Glucose Urine UA Negative (Negative); Ketones Urine 2+ mg/dL (Negative); Leukocyte Esterase Ur 1+ LEU/UL (Negative); Need Manual Microscopic Reviewed; Nitrate Urine Negative (Negative); Protein Urine 4+ mg/dL (Negative); RBC Urine 21-50 /hpf (0-2); Specific Grav Ur 1.023 (1.001-1.035); Squamous Epithelial Cell Urine Moderate /hpf (Few); Urobilinogen Urine 0.2 mg/dL (<2.0)
--- NOTE | 2024-11-20 16:31 | P.HP_ITS ---
H&P: HPI History of Present Illness Date/Time: 11/20/24 16:31 Chief Complaint: Fall Narrative: 83-year-old female past medical history of vertigo, chronic back pain, osteoporosis and hyperparathyroidism presents the hospital after a fall. Patient states that she was walking in her living room of her walker, it was a short distance and she that she would be fine however she ended up falling between couch and was only able to get up due to pain. Patient states that she was able to scoot her way all the way to the bedroom but could not get up into the bed, could not reach her medications or her cell phone. Two days later the neighbor had checked on her and found her still on the floor. Patient denies hitting her head or passing out. Patient was newly diagnosed with vertigo couple months ago and had a fall where she had broken some ribs. Patient lives alone. Patient denies physical abuse. Leukocytosis at 13.4, UA positive 1+ leukocyte esterase, 1+ bacteria, negative for nitrates. CT lumbar spine shows 2.2 cm right lower lobe cavitary nodule suspicious for primary bronchogenic carcinoma. Consider noncontrast low-dose chest CT in 1-3 months. Age-indeterminate T5 burst fracture. Partially visualized fractures of right seventh-10th ribs, likely subacute or chronic, new from 03/17/2024. Acute/subacute sacral insufficiency fractures. Chest x-ray shows Healing rib fractures in the right hemithorax. Kyphosis is seen with degenerative changes. Compression fracture of T12 and L1. Retrolisthesis seen at the level of L1-L2. Compression fractures most likely old is seen in T6, T7 and T8. Head CT shows no acute findings With multiple old infarcts. Review of Systems Review of Systems: 12 systems were reviewed and are negativ e except for as per HPI. COUNT INCLUDES THE [facility] Past Medical History Medical History Back pain, chronic Carpal tunnel syndrome Dyslipidemia Osteoporosis Hyperparathyroidism Family History Family History Mother Family history of heart disease in male family member before age 55 Social History Social History Smoking packs per day: 1 Smoking cigarettes per day: 20.0 Years smoked: 50 Smoking pack-years: 50.00 Smoking status: Current every day smoker Second hand tobacco smoke exposure: No Alcohol intake: never Substance use: never Substance use type: does not use Do You Feel Safe in your Home?: Yes Lack of Transportation: No Lack of Food: Never True Current Housing: I Have Housing Concerned About Future Housing: No Difficulty Paying Gas/Electric Bills: No Difficulty Paying for Meds: No Currently Unemployed: No Education: High School Diploma/GED Difficulty w/ Childcare or Family Care: No Spiritual care concerns: No Meds Home Medications and Allergies Home Medications Medication Instructions Recorded Confirmed Type aspirin 81 mg tablet,delayed 81 mg PO DAILY 01/01/20 11/20/24 History release multivitamin 1 tablet PO DAILY 01/01/20 11/20/24 History cholecalciferol (vitamin D3) 25 25 mcg PO DAILY 02/19/21 11/20/24 History mcg (1,000 unit) capsule loperamide 2 mg tablet 2 mg PO Q6H PRN loose stool #30 06/18/24 11/20/24 Rx (Anti-Diarrheal (loperamide)) tabs metoprolol succinate 50 mg See Rx Instructions .Route 07/24/24 11/20/24 Rx tablet,extended release 24 hr .COMPLEX #90 tabs meclizine 25 mg tablet See Rx Instructions .Route 09/30/24 11/20/24 Rx .COMPLEX #180 tabs potassium chloride 10 mEq See Rx Instructions .Route 11/08/24 11/20/24 Rx tablet,extended release .COMPLEX #90 tabs Allergies Allergy/AdvReac Type Severity Reaction Status Date / Time alendronate sodium Allergy Unknown Itching Verified 08/06/24 09:17 codeine Allergy Unknown Headache Verified 08/06/24 09:17 simvastatin Allergy Unknown Itching Verified 08/06/24 09:17 Vital Signs Vital Signs - 24 hr 11/20/24 11:45 11/20/24 12:15 11/20/24 12:44 Temperature 97.6 F Pulse Rate 84 101 H 96 Respiratory Rate 16 15 14 Blood Pressure 157/110 H Pulse Oximetry 11/20/24 12:45 11/20/24 12:59 11/20/24 13:00 Temperature Pulse Rate 98 96 96 Respiratory Rate 14 14 13 Blood Pressure 158/98 H Pulse Oximetry 11/20/24 13:00 11/20/24 13:01 11/20/24 13:16 Temperature 98.0 F Pulse Rate 94 94 92 Respiratory Rate 16 14 13 Blood Pressure 158/98 H 160/91 H 146/100 H Pulse Oximetry 100 11/20/24 13:17 11/20/24 13:34 11/20/24 13:36 Temperature Pulse Rate 93 97 97 Respiratory Rate 16 14 16 Blood Pressure 146/100 H Pulse Oximetry 11/20/24 13:48 11/20/24 14:00 11/20/24 14:01 Temperature 97.8 F Pulse Rate 95 93 96 Respiratory Rate 18 16 17 Blood Pressure 160/93 H 160/93 H Pulse Oximetry 98 11/20/24 14:02 11/20/24 14:15 11/20/24 14:16 Temperature Pulse Rate 94 98 96 Respiratory Rate 15 16 15 Blood Pressure 154/85 H Pulse Oximetry 81 L 11/20/24 14:30 11/20/24 14:31 11/20/24 14:45 Temperature Pulse Rate 97 95 97 Respiratory Rate 15 16 16 Blood Pressure 149/104 H Pulse Oximetry 11/20/24 14:46 11/20/24 15:00 11/20/24 15:04 Temperature 97.9 F Pulse Rate 99 93 96 Respiratory Rate 18 16 14 Blood Pressure 161/98 H 155/93 H Pulse Oximetry 98 11/20/24 15:18 11/20/24 16:07 Temperature 97.7 F Pulse Rate 98 97 Respiratory Rate 17 16 Blood Pressure 162/96 H Pulse Oximetry 98 Exam Narrative: General: well appearing, appears stated age. Chronic cough HEENT: normocephalic, atraumatic. Mucous membranes moist. EOMI, PERRLA, bilateral sclera anicteric, no conjunctival injection. Neck supple without JVD, lymphadenopathy, or bruit. Respiratory: clear to ascultation bilaterally. No rales/rhonic/wheezes. Cardiovascular: Regular rate and rhythm, normal S1-S2 upon ascultation. No murmurs, rubs, or clicks. PMI is nondisplaced, capillary refill less than 3 second. Abdomen: Soft, round, no pulsatile masses, nondistended and nontender. No rebound, no guarding. No CVA tenderness, no hepatosplenomegaly. Bowel sounds present to all four quadrants. No high pitch or tinkling sounds, resonant to percussion. Extremities: No cyanosis, clubbing, or edema present. Pulses are palpable 2/2. Limited range of motion lower extremities due to acute pain. Neuro: Alert and orientated x 4. PERRLA. Cranial nerves 2-12 intact without focal deficit. Skin: Warm, dry, and intact, without rash, erythema, or lesion. Psych: pleasant, cooperative, normal speech, normal affect, no hallucinations, no dysarthia H&P: Results Labs Labs: Short CBC 11/20/24 Range/Units 12:07 WBC 13.4 H (4.5-10.0) K/mm3 Hgb 13.9 (12.0-15.0) g/dL Hct 41.8 (37.0-47.0) % Plt Count 256 (150-375) k/mm3 BMP 11/20/24 13:07 Sodium 138 Potassium 3.5 Chloride 106 Carbon Dioxide 24 BUN 17 Creatinine 0.79 Glucose 101 Calcium 9.9 Liver Function 11/20/24 Range/Units 13:07 Total Bilirubin 0.8 (0.2-1.3) mg/dL AST 37 H (14-36) U/L ALT 21 (6-35) U/L Alkaline Phosphatase 98 (38-126) U/L Albumin 3.7 (3.5-5.1) g/dL Urine 11/20/24 Range/Units 15:49 Urine Color Dark yellow (Yellow) Urine Appearance Cloudy H (Clear) Urine pH 6.0 (5.0-9.0) Ur Specific [place] 1.023 (1.001-1.035) Urine Protein 4+ H (Negative) mg/dL Urine Glucose (UA) Negative (Negative) mg/dL Assessment and Plan Assessment and plan (1) Fall: Code(s): W19.XXXA - Unspecified fall, initial encounter Status: Acute Assessment and Plan: History of vertigo PT OT evaluate and treat UA pending (2) Pelvic fracture: Code(s): S32.9XXA - Fracture of unspecified parts of lumbosacral spine and pelvis, initial encounter for closed fracture Status: Acute Assessment and Plan: Orthopedics consulted pending recommendations Pain management bowel protocol Okay for diet (3) T5 vertebral fracture: Code(s): S22.059A - Unspecified fracture of T5-T6 vertebra, initial encounter for closed fracture Status: Acute Assessment and Plan: Neurosurgery consulted pending recommendations Bedrest until evaluated Pain management (4) UTI (urinary tract infection): Code(s): N39.0 - Urinary tract infection, site not specified Status: Acute Assessment and Plan: With dysuria Unable to do Pyridium due to creatinine clearance IV Rocephin (5) Vertigo: Code(s): R42 - Dizziness and giddiness Status: Acute Assessment and Plan: QTC 463 Continue meclizine (6) Lung nodule: Code(s): R91.1 - Solitary pulmonary nodule Status: Acute Assessment and Plan: Previously seen on outside CT on 07/02/2024, stable Follow-up outpatient with PCP Quality VTE Prophylaxis VTE prophylaxis: mechanical ordered and pharmacologic ordered Hospitalist MIPS Advance Care Plan I have confirmed that the patient's Advanced Care Plan is present, code status is documented, or surrogate decision maker is listed in patient medical record.: Yes Medication Reconciliation I have utilized all available resources to obtain, update and review the patients current medications (includes all prescriptions, OTC, herbals, cannabis, and nutritional supplements).: Yes
--- NOTE | 2024-11-20 16:45 | ADMGEN ---
This patient, Tracy Munson, was admitted to [facility] Surg Room 303-01. Patient/family oriented to hospital policies and general routines including ID bracelet, bed and alarms, visiting hours, pain management, procedures, bathroom and other care routines, personal items, smoking policy, room service/diet, and visiting hours. Information on how to activate the Rapid Response Team has been discussed. Patient/Family are encouraged to report perceived risks to care and to ask questions if they do not understand what they are told or what they should do.
[2024-11-20] MEDS: HYDROcodone/acetaminophen (*CRX) 5-325 MG TABLET 1 TAB PO ×2 (17:25→21:09)
[2024-11-21 04:00] VITALS: BP 122/79; PULSE 101; RESP 20; TEMP 36.4; O2SAT 97
[2024-11-21] MEDS: SODIUM CHLORIDE 0.9% IV 1,000 ML 999 ML IV CONT (05:33)
[2024-11-21 07:05] LABS: Basophils Absolute Auto 0.1 K/mm3 (0.0-0.1); Basophils Percent Auto 0.4 % (0.2-1.2); Eosinophils Absolute Auto 0.2 K/mm3 (0-0.3); Eosinophils Percent Auto 1.2 % (0-4.4); Hematocrit 40.2 % (37.0-47.0); Hemoglobin 13.3 g/dL (12.0-15.0); Immature Granulocyte Absolute 0.05 K/mm3 (0.00-0.031); Immature Granulocyte Percent A 0.4 % (0-0.5); Lymphocytes Absolute Auto 1.75 K/mm3 (0.9-3.2); Lymphocytes Percent Auto 13.5 % (18.3-44.2); Mean Corpuscular HGB Conc 33.1 g/dl (32-36); Mean Corpuscular Hemoglobin 31.7 pg (26-34); Mean Corpuscular Volume 95.9 fl (80-100); Mean Platelet Volume 9.6 fl (7.4-10.4); Monocytes Absolute Auto 1.8 K/mm3 (0.1-0.6); Monocytes Percent Auto 13.7 % (2.6-8.5); Neutrophils Absolute Auto 9.2 K/mm3 (1.3-6.7); Neutrophils Percent Auto 70.8 % (45.5-73.1); Platelet Count Result 235 k/mm3 (150-375); Red Blood Count 4.19 M/mm3 (4.2-5.4); Red Cell Distribution Width 12.4 % (11.5-14.5)
[2024-11-21 07:32] LABS: Anion Gap 8 mmol/L (4-12); Blood Urea Nitrogen 25 mg/dL (7-17); Calcium 9.8 mg/dL (8.4-10.2); Carbon Dioxide 25 mmol/L (22-30); Chloride 105 mmol/L (98-107); Estimated CRCL calculation 25 ml/min; Estimated Glomerular Filt Rate 50; Glucose 97 mg/dL (65-110); Potassium 3.9 mmol/L (3.4-5.0); Sodium 138 mmol/L (137-145)
[2024-11-21 08:00] VITALS: BP 148/86; PULSE 109; RESP 18; TEMP 36; O2SAT 98
[2024-11-21] MEDS: DOCUSATE SODIUM 100 MG CAPSULE PO (08:10)
[2024-11-21] MEDS: ENOXAPARIN 40 MG/0.4 ML SYRINGE SUB-Q (08:10)
[2024-11-21] MEDS: ASPIRIN 81 MG ENTERIC TABLET PO (08:10)
[2024-11-21] MEDS: POTASSIUM CHLORIDE 10 MEQ ER TABLET BY MOUTH (08:10)
[2024-11-21] MEDS: METOPROLOL SUCCINATE EXT REL 50 MG TABCR BY MOUTH (08:11)
[2024-11-21 08:49] VITALS: O2SAT 98
[2024-11-21] MEDS: MECLIZINE HCL 25 MG TABLET BY MOUTH (10:59)
[2024-11-21 12:03] VITALS: BMI 19.5
--- NOTE | 2024-11-21 12:57 | WPDNEUROSGPN ---
Progress Note: A&P Assessment and Plan (1) Burst fracture of thoracic vertebra: Code(s): S22.001A - Stable burst fracture of unspecified thoracic vertebra, initial encounter for closed fracture Status: Acute Plan Ms. Munson is an 83-year-old female who was admitted yesterday after having a ground level fall at home and was found to have a T5 burst fracture, sacral insufficiency fractures, and multiple rib fractures. Per my discussion with the ER yesterday and her nurse today, she is not complaining of any significant pain in the mid-upper portion of her back. The patient was off the floor for additional imaging when I went to see her. I have reviewed her CT scans that show a T5 burst fracture with 40% loss of height and no retropulsion. I am told that she has no neuro deficits in her arms or legs. Given that she is not having significant pain, I do not think that a brace is necessary. This area would be difficult to brace anyway. She can mobilize as tolerated from my standpoint and can work with PT/ OT. Please notify me or the on-call neurosurgeon if there are further concerns or change in neurologic function. Otherwise, I will arrange for follow up in our clinic as an outpatient. Subjective Date/time seen: 11/21/24 12:57 Interval history: I was consulted yesterday afternoon regarding this patient who was found to have an indeterminate T5 burst fracture on admission after having a ground-level fall at home. The patient was off the floor for additional imaging when I attempted to see her. I spoke with her nurse who stated she is not complaining of pain in her upper/mid back. She was also found to have sacral insufficiency fractures and rib fractures on admission. Review of Systems Review of Systems: All systems reviewed & are unremarkable except as noted in HPI and below Objective Data Vital Signs Vital Signs: Vital Signs - 24 hr 11/20/24 12:59 11/20/24 13:00 11/20/24 13:00 Temperature 98.0 F Pulse Rate 96 96 94 Respiratory Rate 14 13 16 Blood Pressure 158/98 H 158/98 H Pulse Oximetry 100 Oxygen Delivery 11/20/24 13:01 11/20/24 13:16 11/20/24 13:17 Temperature Pulse Rate 94 92 93 Respiratory Rate 14 13 16 Blood Pressure 160/91 H 146/100 H Pulse Oximetry Oxygen Delivery 11/20/24 13:34 11/20/24 13:36 11/20/24 13:48 Temperature Pulse Rate 97 97 95 Respiratory Rate 14 16 18 Blood Pressure 146/100 H Pulse Oximetry Oxygen Delivery 11/20/24 14:00 11/20/24 14:01 11/20/24 14:02 Temperature 97.8 F Pulse Rate 93 96 94 Respiratory Rate 16 17 15 Blood Pressure 160/93 H 160/93 H Pulse Oximetry 98 Oxygen Delivery 11/20/24 14:15 11/20/24 14:16 11/20/24 14:30 Temperature Pulse Rate 98 96 97 Respiratory Rate 16 15 15 Blood Pressure 154/85 H Pulse Oximetry 81 L Oxygen Delivery 11/20/24 14:31 11/20/24 14:45 11/20/24 14:46 Temperature Pulse Rate 95 97 99 Respiratory Rate 16 16 18 Blood Pressure 149/104 H 161/98 H Pulse Oximetry Oxygen Delivery 11/20/24 15:00 11/20/24 15:04 11/20/24 15:18 Temperature 97.9 F Pulse Rate 93 96 98 Respiratory Rate 16 14 17 Blood Pressure 155/93 H Pulse Oximetry 98 Oxygen Delivery 11/20/24 16:07 11/20/24 16:45 11/20/24 16:56 Temperature 97.7 F 96.8 F L Pulse Rate 97 111 H Respiratory Rate 16 20 Blood Pressure 162/96 H 138/87 Pulse Oximetry 98 99 Oxygen Delivery Room Air 11/20/24 20:00 11/20/24 20:00 11/21/24 04:00 Temperature 97.8 F 97.5 F L Pulse Rate 121 H 101 H Respiratory Rate 18 20 Blood Pressure 138/86 122/79 Pulse Oximetry 94 97 Oxygen Delivery Room Air 11/21/24 08:00 11/21/24 08:00 11/21/24 08:49 Temperature 96.8 F L Pulse Rate 109 H Respiratory Rate 18 Blood Pressure 148/86 H Pulse Oximetry 98 98 Oxygen Delivery Room Air Room Air Intake/Output Intake/Output: Intake & Output 11/18/24 11/19/24 11/20/24 11/21/24 23:59 23:59 23:59 23:59 Intake Total 200 240 Output Total 100 Balance 200 140 Meds/Results Medications: Active Medications Generic Name Dose Route Start Last Admin Trade Name Freq PRN Reason Stop Dose Admin Acetaminophen 650 mg 11/20/24 17:00 11/21/24 11:05 Acetaminophen 325 Mg Tablet PO Not Given Q6H [facility] Hydrocodone Bitart/Acetaminophen 1 tab 11/20/24 15:07 11/20/24 21:09 Hydrocodone/Acetaminophen (*Crx) 5-325 Mg Tablet PO 1 tab Q4H PRN Administration Pain Rated 4-6 Aspirin 81 mg 11/21/24 09:00 11/21/24 08:10 Aspirin 81 Mg Enteric Tablet PO 81 mg DAILY AIDE Administration Docusate Sodium 100 mg 11/21/24 09:00 11/21/24 08:10 Docusate Sodium 100 Mg Capsule PO 100 mg DAILY [facility] Administration Enoxaparin Sodium 40 mg 11/21/24 09:00 11/21/24 08:10 Enoxaparin 40 Mg/0.4 Ml Syringe SUB-Q 40 mg DAILY [facility] Administration Hydromorphone HCl 0.5 mg 11/20/24 15:07 Hydromorphone Hcl Inj (*Crx) 1 Mg/Ml Syr IV PUSH Q4H PRN Pain Rated 7-10 Ceftriaxone Sodium 1 gm in 50 mls @ 100 mls/hr 11/20/24 23:20 11/21/24 01:43 Rocephin 1 Gm/Ns 50 Ml IVPB 100 mls/hr DAILY@2200 [facility] Administration Dextrose/Sodium Chloride 1,000 mls @ 40 mls/hr 11/21/24 05:25 Dextrose 5% Sodium Chloride 0.45% IV CONT .Q24H [facility] Meclizine HCl 25 mg 11/20/24 23:15 11/21/24 10:59 Meclizine Hcl 25 Mg Tablet BY MOUTH 25 mg BID PRN Administration Dizziness Metoprolol Succinate 50 mg 11/21/24 09:00 11/21/24 08:11 Metoprolol Succinate Ext Rel 50 Mg Tabcr BY MOUTH 50 mg DAILY [facility] Administration Potassium Chloride 10 meq 11/21/24 09:00 11/21/24 08:10 Potassium Chloride 10 Meq Er Tablet BY MOUTH 10 meq Q48H AIDE Administration Radiology Results: ITS Impressions Chest X-Ray 11/20/24 12:29 IMPRESSION: No acute cardiopulmonary pathology. Multiple healing rib fractures in the right hemithorax. Multilevel compression fracture. Anterolisthesis at the level of L1-L2. MRI evaluation advised. Head CT 11/20/24 12:42 IMPRESSION: No acute intracranial findings. Multiple old infarcts.. Cervical Spine CT 11/20/24 12:46 IMPRESSION: No definite acute osseous abnormality cervical spine. The step-off seen at the base of the lateral rib is most likely artifactual. Clinical correlation and follow-up advised. Multilevel degenerative disc disease. Multilevel facet joint disease. Thoracic/Lumbar Spine CT 11/20/24 14:20 IMPRESSION: 1. 2.2 cm right lower lobe cavitary nodule suspicious for primary bronchogenic carcinoma. Consider noncontrast low-dose chest CT in 1-3 months. 2. Age-indeterminate T5 burst fracture. 3. Partially visualized fractures of right seventh-10th ribs, likely subacute or chronic, new from 03/17/2024. 4. Moderate thoracic spondylosis. 5. 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 6. Acute/subacute sacral insufficiency fractures. 7. Severe lumbar spondylosis. Labs Labs: Laboratory Results - last 24 hr 11/20/24 11/20/24 11/21/24 13:07 15:49 06:36 WBC 13.0 H RBC 4.19 L Hgb 13.3 Hct 40.2 MCV 95.9 MCH 31.7 MCHC 33.1 RDW 12.4 Plt Count 235 MPV 9.6 Immature Gran % (Auto) 0.4 Neut % (Auto) 70.8 Lymph % (Auto) 13.5 L Jack % (Auto) 13.7 H Eos % (Auto) 1.2 Baso % (Auto) 0.4 Lymph # (Auto) 1.75 Jack # (Auto) 1.8 H Eos # (Auto) 0.2 Baso # (Auto) 0.1 Abs Immat Gran (auto) 0.05 H Absolute Neuts (auto) 9.2 H Absolute Nucleated RBC 0.000 Nucleated RBC % 0.0 Sodium 138 138 Potassium 3.5 3.9 Chloride 106 105 Carbon Dioxide 24 25 Anion Gap 8 8 BUN 17 25 H Creatinine 0.79 1.05 H Estim Creat Clear Calc 34 25 Estimated GFR > 60 50 L Glucose 101 97 Calcium 9.9 9.8 Total Bilirubin 0.8 AST 37 H ALT 21 Alkaline Phosphatase 98 Total Protein 7.0 Albumin 3.7 Urine Color Dark yellow Urine Appearance Cloudy H Urine pH 6.0 Ur Specific [place] 1.023 Urine Protein 4+ H Urine Glucose (UA) Negative Urine Ketones 2+ H Ur Blood (Man) 2+ H Urine Nitrate Negative Urine Bilirubin Negative Urine Urobilinogen 0.2 Add Ur Microanalysis Reviewed Leukocyte Esterase Rfl 1+ H Urine RBC 21-50 H Urine WBC 11-20 H Ur Squamous Epith Cells Moderate Urine Bacteria 1+ H Urine Casts 6-10
--- NOTE | 2024-11-21 13:18 | P.PNIM_ITS ---
Progress Note: A&P Assessment and Plan (1) Fall: Code(s): W19.XXXA - Unspecified fall, initial encounter Status: Acute Assessment and Plan: History of vertigo PT OT evaluate and treat (2) Pelvic fracture: Code(s): S32.9XXA - Fracture of unspecified parts of lumbosacral spine and pelvis, initial encounter for closed fracture Status: Acute Assessment and Plan: Orthopedics consulted pending recommendations Pain management back brace , pt / ot recommended (3) T5 vertebral fracture: Code(s): S22.059A - Unspecified fracture of T5-T6 vertebra, initial encounter for closed fracture Status: Acute Assessment and Plan: Neurosurgery consulted pending recommendations ok to start mobilizing Pain management (4) UTI (urinary tract infection): Code(s): N39.0 - Urinary tract infection, site not specified Status: Acute Assessment and Plan: await uc, ua positive IV Rocephin (5) Vertigo: Code(s): R42 - Dizziness and giddiness Status: Acute Assessment and Plan: QTC 463 Continue meclizine (6) Lung nodule: Code(s): R91.1 - Solitary pulmonary nodule Status: Acute Assessment and Plan: Previously seen on outside CT on 07/02/2024, stable Follow-up outpatient with PCP Subjective Date/time seen: 11/21/24 13:18 Interval history: 83-year-old female past medical history of vertigo, chronic back pain, osteo porosis and hyperparathyroidism presents the hospital after a fall. Pt admitted with fall, pelvic fracture and T vertebral fracture Pt seen by neurosurgery continue pain control , back brace, PT/ OT Review of Systems Review of Systems: Pt having severe back pains and immobility due to pain Objective Data Vital Signs Vital Signs: Vital Signs - 24 hr 11/20/24 13:34 11/20/24 13:36 11/20/24 13:48 Temperature Pulse Rate 97 97 95 Respiratory Rate 14 16 18 Blood Pressure 146/100 H Pulse Oximetry Oxygen Delivery 11/20/24 14:00 11/20/24 14:01 11/20/24 14:02 Temperature 36.6 C Pulse Rate 93 96 94 Respiratory Rate 16 17 15 Blood Pressure 160/93 H 160/93 H Pulse Oximetry 98 Oxygen Delivery 11/20/24 14:15 11/20/24 14:16 11/20/24 14:30 Temperature Pulse Rate 98 96 97 Respiratory Rate 16 15 15 Blood Pressure 154/85 H Pulse Oximetry 81 L Oxygen Delivery 11/20/24 14:31 11/20/24 14:45 11/20/24 14:46 Temperature Pulse Rate 95 97 99 Respiratory Rate 16 16 18 Blood Pressure 149/104 H 161/98 H Pulse Oximetry Oxygen Delivery 11/20/24 15:00 11/20/24 15:04 11/20/24 15:18 Temperature 36.6 C Pulse Rate 93 96 98 Respiratory Rate 16 14 17 Blood Pressure 155/93 H Pulse Oximetry 98 Oxygen Delivery 11/20/24 16:07 11/20/24 16:45 11/20/24 16:56 Temperature 36.5 C 36.0 C L Pulse Rate 97 111 H Respiratory Rate 16 20 Blood Pressure 162/96 H 138/87 Pulse Oximetry 98 99 Oxygen Delivery Room Air 11/20/24 20:00 11/20/24 20:00 11/21/24 04:00 Temperature 36.6 C 36.4 C L Pulse Rate 121 H 101 H Respiratory Rate 18 20 Blood Pressure 138/86 122/79 Pulse Oximetry 94 97 Oxygen Delivery Room Air 11/21/24 08:00 11/21/24 08:00 11/21/24 08:49 Temperature 36.0 C L Pulse Rate 109 H Respiratory Rate 18 Blood Pressure 148/86 H Pulse Oximetry 98 98 Oxygen Delivery Room Air Room Air Intake/Output Intake/Output: Intake & Output 11/18/24 11/19/24 11/20/24 11/21/24 23:59 23:59 23:59 23:59 Intake Total 200 240 Output Total 100 Balance 200 140 Meds/Results Medications: Active Medications Generic Name Dose Route Start Last Admin Trade Name Datq PRN Reason Stop Dose Admin Acetaminophen 650 mg 11/20/24 17:00 11/21/24 11:05 Acetaminophen 325 Mg Tablet PO Not Given Q6H AIDE Hydrocodone Bitart/Acetaminophen 1 tab 11/20/24 15:07 11/20/24 21:09 Hydrocodone/Acetaminophen (*Crx) 5-325 Mg Tablet PO 1 tab Q4H PRN Administration Pain Rated 4-6 Aspirin 81 mg 11/21/24 09:00 11/21/24 08:10 Aspirin 81 Mg Enteric Tablet PO 81 mg DAILY AIDE Administration Docusate Sodium 100 mg 11/21/24 09:00 11/21/24 08:10 Docusate Sodium 100 Mg Capsule PO 100 mg DAILY [facility] Administration Enoxaparin Sodium 40 mg 11/21/24 09:00 11/21/24 08:10 Enoxaparin 40 Mg/0.4 Ml Syringe SUB-Q 40 mg DAILY [facility]IDE Administration Hydromorphone HCl 0.5 mg 11/20/24 15:07 Hydromorphone Hcl Inj (*Crx) 1 Mg/Ml Syr IV PUSH Q4H PRN Pain Rated 7-10 Ceftriaxone Sodium 1 gm in 50 mls @ 100 mls/hr 11/20/24 23:20 11/21/24 01:43 Rocephin 1 Gm/Ns 50 Ml IVPB 100 mls/hr DAILY@2200 [facility]IDE Administration Dextrose/Sodium Chloride 1,000 mls @ 40 mls/hr 11/21/24 05:25 Dextrose 5% Sodium Chloride 0.45% IV CONT .Q24H AIDE Meclizine HCl 25 mg 11/20/24 23:15 11/21/24 10:59 Meclizine Hcl 25 Mg Tablet BY MOUTH 25 mg BID PRN Administration Dizziness Metoprolol Succinate 50 mg 11/21/24 09:00 11/21/24 08:11 Metoprolol Succinate Ext Rel 50 Mg Tabcr BY MOUTH 50 mg DAILY AIDE Administration Potassium Chloride 10 meq 11/21/24 09:00 11/21/24 08:10 Potassium Chloride 10 Meq Er Tablet BY MOUTH 10 meq Q48H AIDE Administration Radiology Results: ITS Impressions Chest X-Ray 11/20/24 12:29 IMPRESSION: No acute cardiopulmonary pathology. Multiple healing rib fractures in the right hemithorax. Multilevel compression fracture. Anterolisthesis at the level of L1-L2. MRI evaluation advised. Head CT 11/20/24 12:42 IMPRESSION: No acute intracranial findings. Multiple old infarcts.. Cervical Spine CT 11/20/24 12:46 IMPRESSION: No definite acute osseous abnormality cervical spine. The step-off seen at the base of the lateral rib is most likely artifactual. Clinical correlation and follow-up advised. Multilevel degenerative disc disease. Multilevel facet joint disease. Thoracic/Lumbar Spine CT 11/20/24 14:20 IMPRESSION: 1. 2.2 cm right lower lobe cavitary nodule suspicious for primary bronchogenic carcinoma. Consider noncontrast low-dose chest CT in 1-3 months. 2. Age-indeterminate T5 burst fracture. 3. Partially visualized fractures of right seventh-10th ribs, likely subacute or chronic, new from 03/17/2024. 4. Moderate thoracic spondylosis. 5. 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 6. Acute/subacute sacral insufficiency fractures. 7. Severe lumbar spondylosis. Pelvis X-Ray 11/21/24 13:04 IMPRESSION: 1. Sacral insufficiency fractures. Labs Labs: Laboratory Results - last 24 hr 11/20/24 11/20/24 11/21/24 13:07 15:49 06:36 WBC 13.0 H RBC 4.19 L Hgb 13.3 Hct 40.2 MCV 95.9 MCH 31.7 MCHC 33.1 RDW 12.4 Plt Count 235 MPV 9.6 Immature Gran % (Auto) 0.4 Neut % (Auto) 70.8 Lymph % (Auto) 13.[address] [place] % (Auto) 13.7 H Eos % (Auto) 1.2 Baso % (Auto) 0.4 Lymph # (Auto) 1.75 [place] # (Auto) 1.8 H Eos # (Auto) 0.2 Baso # (Auto) 0.1 Abs Immat Gran (auto) 0.05 H Absolute Neuts (auto) 9.2 H Absolute Nucleated RBC 0.000 Nucleated RBC % 0.0 Sodium 138 138 Potassium 3.5 3.9 Chloride 106 105 Carbon Dioxide 24 25 Anion Gap 8 8 BUN 17 25 H Creatinine 0.79 1.05 H Estim Creat Clear Calc 34 25 Estimated GFR > 60 50 L Glucose 101 97 Calcium 9.9 9.8 Total Bilirubin 0.8 AST 37 H ALT 21 Alkaline Phosphatase 98 Total Protein 7.0 Albumin 3.7 Urine Color Dark yellow Urine Appearance Cloudy H Urine pH 6.0 Ur Specific [place] 1.023 Urine Protein 4+ H Urine Glucose (UA) Negative Urine Ketones 2+ H Ur Blood (Man) 2+ H Urine Nitrate Negative Urine Bilirubin Negative Urine Urobilinogen 0.2 Add Ur Microanalysis Reviewed Leukocyte Esterase Rfl 1+ H Urine RBC 21-50 H Urine WBC 11-20 H Ur Squamous Epith Cells Moderate Urine Bacteria 1+ H Urine Casts 6-10
[2024-11-21 14:00] VITALS: BP 134/84; PULSE 105; RESP 18; TEMP 36.6; O2SAT 96
--- NOTE | 2024-11-21 16:04 | PM.CNOR ---
Assessment and Plan Assessment and plan (1) Sacral insufficiency fracture: Qualifiers: Encounter type: initial encounter Qualified Code(s): M84.48XA - Pathological fracture, other site, initial encounter for fracture Code(s): M84.48XA - Pathological fracture, other site, initial encounter for fracture Status: Acute Assessment and Plan: Patient is an 83-year-old female who lives by herself at home who fell 2 or 3 days ago onto her buttocks and presented with lower back and tailbone pain. She had CT scans of the thoracic and lumbar spines yesterday in the emergency room and was noted to have a compression fracture characterized as a burst fracture without canal compromise at T5 and non fractures of the sacral alae anterior aspects close to the sacroiliac joints bilaterally. She normally uses a walker for all ambulation. She does have history of strokes seen on previous MRI of the brain. She continues to smoke counseled her about quitting smoking at this time I explained to her that smoking will slow the healing of her fractures. She notes that she has been unable to smoke for the last 3 days and is confident she will be able to quit. She does report pain in the tailbone at this time resting in bed. Patient has no personal or family history of DVT problems but because she smokes she is at increased risk for that and she may be very inactive several weeks. She does have SCDs on her caps currently. I would recommend that we add Lovenox 30 mg Q 24 hours. She weighs only 45.4 kg. Her creatinine clearance is 25. Physical therapy can work on transfers bed to chair. He eventually if she is comfortable she could walk a few steps every day. The goal will not be to push her as hard as possible to walk as far as possible as that could be detrimental to the healing of her sacral ala fractures but rather to have her be able to walk a few steps every day so she does not become to the condition while she is healing would be ideal. It would be appropriate to start with transfers bed to chair. Rehabilitate would be appropriate for her as she would not be able to live independently at home until her sacral ala fractures have healed and I expect a total of 6 weeks of convalescence. History of Present Illness HPI Consult date: 11/21/24 Chief complaint: Ground level fall, sacral insufficiency fracture [facility] Past Medical History Medical History Back pain, chronic Carpal tunnel syndrome Dyslipidemia Osteoporosis Hyperparathyroidism Family History Family History Mother Family history of heart disease in male family member before age 55 Social History Social History Smoking packs per day: 1 Smoking cigarettes per day: 20.0 Years smoked: 50 Smoking pack-years: 50.00 Smoking status: Current every day smoker Second hand tobacco smoke exposure: No Alcohol intake: never Substance use: never Substance use type: does not use Do You Feel Safe in your Home?: Yes Lack of Transportation: No Lack of Food: Never True Current Housing: I Have Housing Concerned About Future Housing: No Difficulty Paying Gas/Electric Bills: No Difficulty Paying for Meds: No Currently Unemployed: No Education: High School Diploma/GED Difficulty w/ Childcare or Family Care: No Spiritual care concerns: No Meds Home Medications and Allergies Home Medications Medication Instructions Recorded Confirmed Type aspirin 81 mg tablet,delayed 81 mg PO DAILY 01/01/20 11/20/24 History release multivitamin 1 tablet PO DAILY 01/01/20 11/20/24 History cholecalciferol (vitamin D3) 25 25 mcg PO DAILY 02/19/21 11/20/24 History mcg (1,000 unit) capsule loperamide 2 mg tablet 2 mg PO Q6H PRN loose stool #30 06/18/24 11/20/24 Rx (Anti-Diarrheal (loperamide)) tabs metoprolol succinate 50 mg See Rx Instructions .Route 07/24/24 11/20/24 Rx tablet,extended release 24 hr .COMPLEX #90 tabs meclizine 25 mg tablet See Rx Instructions .Route 09/30/24 11/20/24 Rx .COMPLEX #180 tabs potassium chloride 10 mEq See Rx Instructions .Route 11/08/24 11/20/24 Rx tablet,extended release .COMPLEX #90 tabs Allergies Allergy/AdvReac Type Severity Reaction Status Date / Time alendronate sodium Allergy Unknown Itching Verified 08/06/24 09:17 codeine Allergy Unknown Headache Verified 08/06/24 09:17 simvastatin Allergy Unknown Itching Verified 08/06/24 09:17 Vital Signs Vital Signs - 24 hr 11/20/24 16:07 11/20/24 16:45 11/20/24 16:56 Temperature 36.5 C 36.0 C L Pulse Rate 97 111 H Respiratory Rate 16 20 Blood Pressure 162/96 H 138/87 Pulse Oximetry 98 99 Oxygen Delivery Room Air 11/20/24 20:00 11/20/24 20:00 11/21/24 04:00 Temperature 36.6 C 36.4 C L Pulse Rate 121 H 101 H Respiratory Rate 18 20 Blood Pressure 138/86 122/79 Pulse Oximetry 94 97 Oxygen Delivery Room Air 11/21/24 08:00 11/21/24 08:00 11/21/24 08:49 Temperature 36.0 C L Pulse Rate 109 H Respiratory Rate 18 Blood Pressure 148/86 H Pulse Oximetry 98 98 Oxygen Delivery Room Air Room Air 11/21/24 14:00 Temperature 36.6 C Pulse Rate 105 H Respiratory Rate 18 Blood Pressure 134/84 Pulse Oximetry 96 Oxygen Delivery Results Labs 11/21/24 06:36 11/21/24 06:36 Labs: Abnormal lab results 11/20/24 11/21/24 Range/Units 15:49 06:36 WBC 13.0 H (4.5-10.0) K/mm3 RBC 4.19 L (4.2-5.4) M/mm3 Lymph % (Auto) 13.5 L (18.3-44.2) % [place] % (Auto) 13.7 H (2.6-8.5) % [place] # (Auto) 1.8 H (0.1-0.6) K/mm3 Abs Immat Gran (auto) 0.05 H (0.00-0.031) K/mm3 Absolute Neuts (auto) 9.2 H (1.3-6.7) K/mm3 BUN 25 H (7-17) mg/dL Creatinine 1.05 H (0.7-1.0) mg/dL Estimated GFR 50 L (59 - ) Urine Appearance Cloudy H (Clear) Urine Protein 4+ H (Negative) mg/dL Urine Ketones 2+ H (Negative) mg/dL Ur Blood (Man) 2+ H (Negative) Leukocyte Esterase Rfl 1+ H (Negative) EMMA/UL Urine RBC 21-50 H (0-2) /hpf Urine WBC 11-20 H (0-3) /hpf Urine Bacteria 1+ H /hpf H & H 11/20/24 11/21/24 Range/Units 12:07 06:36 Hgb 13.9 13.3 (12.0-15.0) g/dL Hct 41.8 40.2 (37.0-47.0) % All other labs normal.
[2024-11-21] MEDS: ACETAMINOPHEN 325 MG TABLET 650 MG PO (17:01)
[2024-11-21] MEDS: DEXTROSE 5%/0.45% SOD CHL 1,000 ML 40 ML IV CONT (17:07)
[2024-11-21 20:20] VITALS: BP 140/81; PULSE 91; RESP 20; TEMP 37.5; O2SAT 96
[2024-11-21] MEDS: HYDROcodone/acetaminophen (*CRX) 5-325 MG TABLET 1 TAB PO (20:43)
[2024-11-22] VITALS (7 sets, daily range): BP systolic 135–162; BP diastolic 68–91; PULSE 68–85; RESP 17–20; TEMP 36.2–37.2; O2SAT 97–99
[2024-11-22 06:46] LABS: Hematocrit 35.3 % (37.0-47.0); Hemoglobin 11.8 g/dL (12.0-15.0); Mean Corpuscular HGB Conc 33.4 g/dl (32-36); Mean Corpuscular Hemoglobin 31.7 pg (26-34); Mean Corpuscular Volume 94.9 fl (80-100); Mean Platelet Volume 9.7 fl (7.4-10.4); Platelet Count Result 214 k/mm3 (150-375); Red Blood Count 3.72 M/mm3 (4.2-5.4); Red Cell Distribution Width 12.2 % (11.5-14.5); White Blood Count 9.4 K/mm3 (4.5-10.0)
[2024-11-22 07:07] LABS: Anion Gap 4 mmol/L (4-12); Blood Urea Nitrogen 17 mg/dL (7-17); Calcium 8.6 mg/dL (8.4-10.2); Carbon Dioxide 26 mmol/L (22-30); Chloride 107 mmol/L (98-107); Estimated CRCL calculation 39 ml/min; Estimated Glomerular Filt Rate > 60; Glucose 96 mg/dL (65-110); Potassium 3.3 mmol/L (3.4-5.0); Sodium 137 mmol/L (137-145)
--- NOTE | 2024-11-22 07:33 | PM.PNORT ---
Progress Note: A&P Assessment and Plan (1) Sacral insufficiency fracture: Qualifiers: Encounter type: initial encounter Qualified Code(s): M84.48XA - Pathological fracture, other site, initial encounter for fracture Code(s): M84.48XA - Pathological fracture, other site, initial encounter for fracture Status: Acute Plan Patient is comfortable at rest. She did get up to the chair last night and sat for a while and tolerated this very well. Her pain is controlled. The I should see her in the office in approximately 4 weeks. Subjective Subjective Date/Time Seen: 11/22/24 07:33 Objective Data Vital Signs Vital Signs: Vital Signs - 24 hr 11/21/24 08:00 11/21/24 08:00 11/21/24 08:49 Temperature 36.0 C L Pulse Rate 109 H Respiratory Rate 18 Blood Pressure 148/86 H Pulse Oximetry 98 98 Oxygen Delivery Room Air Room Air 11/21/24 14:00 11/21/24 16:10 11/21/24 20:00 Temperature 36.6 C Pulse Rate 105 H Respiratory Rate 18 Blood Pressure 134/84 Pulse Oximetry 96 Oxygen Delivery Room Air Room Air 11/21/24 20:20 11/22/24 02:15 11/22/24 05:10 Temperature 37.5 C 36.9 C 36.2 C L Pulse Rate 91 79 68 Respiratory Rate 20 18 18 Blood Pressure 140/81 162/82 H Pulse Oximetry 96 97 98 Oxygen Delivery Intake/Output Intake/Output: Intake & Output 11/19/24 11/20/24 11/21/24 11/22/24 23:59 23:59 23:59 23:59 Intake Total 200 950 250 Output Total 250 250 Balance 200 700 0 Meds/Results Medications: Active Medications Generic Name Dose Route Start Last Admin Trade Name Freq PRN Reason Stop Dose Admin Acetaminophen 650 mg 11/20/24 17:00 11/22/24 04:56 Acetaminophen 325 Mg Tablet PO Not Given Q6H AIDE Hydrocodone Bitart/Acetaminophen 1 tab 11/20/24 15:07 11/21/24 20:43 Hydrocodone/Acetaminophen (*Crx) 5-325 Mg Tablet PO 1 tab Q4H PRN Administration Pain Rated 4-6 Aspirin 81 mg 11/21/24 09:00 11/21/24 08:10 Aspirin 81 Mg Enteric Tablet PO 81 mg DAILY AIDE Administration Docusate Sodium 100 mg 11/21/24 09:00 11/21/24 08:10 Docusate Sodium 100 Mg Capsule PO 100 mg DAILY AIDE Administration Enoxaparin Sodium 30 mg 11/22/24 09:00 Enoxaparin 30 Mg/0.3 Ml Syringe SUB-Q DAILY AIDE Hydromorphone HCl 0.5 mg 11/20/24 15:07 Hydromorphone Hcl Inj (*Crx) 1 Mg/Ml Syr IV PUSH Q4H PRN Pain Rated 7-10 Ceftriaxone Sodium 1 gm in 50 mls @ 100 mls/hr 11/20/24 23:20 11/21/24 20:43 Rocephin 1 Gm/Ns 50 Ml IVPB 100 mls/hr DAILY@2200 AIDE Administration Dextrose/Sodium Chloride 1,000 mls @ 40 mls/hr 11/21/24 05:25 11/21/24 17:07 Dextrose 5% Sodium Chloride 0.45% IV CONT 40 mls/hr .Q24H AIDE Administration Meclizine HCl 25 mg 11/20/24 23:15 11/21/24 10:59 Meclizine Hcl 25 Mg Tablet BY MOUTH 25 mg BID PRN Administration Dizziness Metoprolol Succinate 50 mg 11/21/24 09:00 11/21/24 08:11 Metoprolol Succinate Ext Rel 50 Mg Tabcr BY MOUTH 50 mg DAILY AIDE Administration Potassium Chloride 10 meq 11/21/24 09:00 11/21/24 08:10 Potassium Chloride 10 Meq Er Tablet BY MOUTH 10 meq Q48H AIDE Administration Radiology Results: ITS Impressions Chest X-Ray 11/20/24 12:29 IMPRESSION: No acute cardiopulmonary pathology. Multiple healing rib fractures in the right hemithorax. Multilevel compression fracture. Anterolisthesis at the level of L1-L2. MRI evaluation advised. Head CT 11/20/24 12:42 IMPRESSION: No acute intracranial findings. Multiple old infarcts.. Cervical Spine CT 11/20/24 12:46 IMPRESSION: No definite acute osseous abnormality cervical spine. The step-off seen at the base of the lateral rib is most likely artifactual. Clinical correlation and follow-up advised. Multilevel degenerative disc disease. Multilevel facet joint disease. Thoracic/Lumbar Spine CT 11/20/24 14:20 IMPRESSION: 1. 2.2 cm right lower lobe cavitary nodule suspicious for primary bronchogenic carcinoma. Consider noncontrast low-dose chest CT in 1-3 months. 2. Age-indeterminate T5 burst fracture. 3. Partially visualized fractures of right seventh-10th ribs, likely subacute or chronic, new from 03/17/2024. 4. Moderate thoracic spondylosis. 5. 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 6. Acute/subacute sacral insufficiency fractures. 7. Severe lumbar spondylosis. Pelvis X-Ray 11/21/24 13:04 IMPRESSION: 1. Sacral insufficiency fractures. Labs Labs: Laboratory Results - last 24 hr 11/22/24 06:12 WBC 9.4 RBC 3.72 L Hgb 11.8 L Hct 35.3 L MCV 94.9 MCH 31.7 MCHC 33.4 RDW 12.2 Plt Count 214 MPV 9.7 Sodium 137 Potassium 3.3 L Chloride 107 Carbon Dioxide 26 Anion Gap 4 BUN 17 Creatinine 0.66 L Estim Creat Clear Calc 39 Estimated GFR > 60 Glucose 96 Calcium 8.6
[2024-11-22] MEDS: ENOXAPARIN 30 MG/0.3 ML SYRINGE SUB-Q (09:04)
[2024-11-22] MEDS: DOCUSATE SODIUM 100 MG CAPSULE PO (09:06)
[2024-11-22] MEDS: METOPROLOL SUCCINATE EXT REL 50 MG TABCR BY MOUTH (09:06)
[2024-11-22] MEDS: ASPIRIN 81 MG ENTERIC TABLET PO (09:07)
--- NOTE | 2024-11-22 11:50 | P.PNIM_ITS ---
Progress Note: A&P Assessment and Plan (1) Fall: Code(s): W19.XXXA - Unspecified fall, initial encounter Status: Acute Assessment and Plan: History of vertigo Continue with PT/OT (2) Pelvic fracture: Code(s): S32.9XXA - Fracture of unspecified parts of lumbosacral spine and pelvis, initial encounter for closed fracture Status: Acute Assessment and Plan: Orthopedics consulted pending recommendations Pain management back brace , pt / ot recommended (3) T5 vertebral fracture: Code(s): S22.059A - Unspecified fracture of T5-T6 vertebra, initial encounter for closed fracture Status: Acute Assessment and Plan: Neurosurgery consulted pending recommendations Ok to start mobilizing Pain management Orthopedics will follow in 4 weeks time Continue PT/ OT in hospital Pt may benefit from placement (4) UTI (urinary tract infection): Code(s): N39.0 - Urinary tract infection, site not specified Status: Acute Assessment and Plan: [facility] high await uc, ua positive IV Rocephin empherically (5) Vertigo: Code(s): R42 - Dizziness and giddiness Status: Acute Assessment and Plan: QTC 463 Continue meclizine (6) Lung nodule: Code(s): R91.1 - Solitary pulmonary nodule Status: Acute Assessment and Plan: Previously seen on outside CT on 07/02/2024, stable Follow-up outpatient with PCP Plan lovenox for DVT prop Subjective Date/time seen: 11/22/24 11:50 Interval history: 83-year-old female past medical history of vertigo, chronic back pain, osteopor osis and hyperparathyroidism presents the hospital after a fall. Pt admitted with fall, pelvic fracture and T vertebral fracture Pt seen by neurosurgery continue pain control , back brace, PT/ OT Pt seen by orthopedic MD, pt had been siting in chair for some time continue PT/ OT in hospital pt may need placement for further rehab Review of Systems Review of Systems: Pt having severe back pains lying in bed today Objective Data Vital Signs Vital Signs: Vital Signs - 24 hr 11/21/24 14:00 11/21/24 16:10 11/21/24 20:00 Temperature 36.6 C Pulse Rate 105 H Respiratory Rate 18 Blood Pressure 134/84 Pulse Oximetry 96 Oxygen Delivery Room Air Room Air 11/21/24 20:20 11/22/24 02:15 11/22/24 05:10 Temperature 37.5 C 36.9 C 36.2 C L Pulse Rate 91 79 68 Respiratory Rate 20 18 18 Blood Pressure 140/81 162/82 H Pulse Oximetry 96 97 98 Oxygen Delivery 11/22/24 08:00 11/22/24 08:00 11/22/24 09:06 Temperature 36.6 C Pulse Rate 72 74 Respiratory Rate 18 Blood Pressure 149/68 H Pulse Oximetry 97 Oxygen Delivery Room Air Intake/Output Intake/Output: Intake & Output 11/19/24 11/20/24 11/21/24 11/22/24 23:59 23:59 23:59 23:59 Intake Total 200 950 250 Output Total 250 250 Balance 200 700 0 Meds/Results Medications: Active Medications Generic Name Dose Route Start Last Admin Trade Name Freq PRN Reason Stop Dose Admin Acetaminophen 650 mg 11/20/24 17:00 11/22/24 04:56 Acetaminophen 325 Mg Tablet PO Not Given Q6H AIDE Hydrocodone Bitart/Acetaminophen 1 tab 11/20/24 15:07 11/21/24 20:43 Hydrocodone/Acetaminophen (*Crx) 5-325 Mg Tablet PO 1 tab Q4H PRN Administration Pain Rated 4-6 Aspirin 81 mg 11/21/24 09:00 11/22/24 09:07 Aspirin 81 Mg Enteric Tablet PO 81 mg DAILY AIDE Administration Docusate Sodium 100 mg 11/21/24 09:00 11/22/24 09:06 Docusate Sodium 100 Mg Capsule PO 100 mg DAILY AIDE Administration Enoxaparin Sodium 30 mg 11/22/24 09:00 11/22/24 09:04 Enoxaparin 30 Mg/0.3 Ml Syringe SUB-Q 30 mg DAILY AIDE Administration Hydromorphone HCl 0.5 mg 11/20/24 15:07 Hydromorphone Hcl Inj (*Crx) 1 Mg/Ml Syr IV PUSH Q4H PRN Pain Rated 7-10 Ceftriaxone Sodium 1 gm in 50 mls @ 100 mls/hr 11/20/24 23:20 11/21/24 20:43 Rocephin 1 Gm/Ns 50 Ml IVPB 100 mls/hr DAILY@2200 AIDE Administration Dextrose/Sodium Chloride 1,000 mls @ 40 mls/hr 11/21/24 05:25 11/21/24 17:07 Dextrose 5% Sodium Chloride 0.45% IV CONT 40 mls/hr .Q24H AIDE Administration Meclizine HCl 25 mg 11/20/24 23:15 11/21/24 10:59 Meclizine Hcl 25 Mg Tablet BY MOUTH 25 mg BID PRN Administration Dizziness Metoprolol Succinate 50 mg 11/21/24 09:00 11/22/24 09:06 Metoprolol Succinate Ext Rel 50 Mg Tabcr BY MOUTH 50 mg DAILY AIDE Administration Potassium Chloride 10 meq 11/21/24 09:00 11/21/24 08:10 Potassium Chloride 10 Meq Er Tablet BY MOUTH 10 meq Q48H AIDE Administration Radiology Results: ITS Impressions Chest X-Ray 11/20/24 12:29 IMPRESSION: No acute cardiopulmonary pathology. Multiple healing rib fractures in the right hemithorax. Multilevel compression fracture. Anterolisthesis at the level of L1-L2. MRI evaluation advised. Head CT 11/20/24 12:42 IMPRESSION: No acute intracranial findings. Multiple old infarcts.. Cervical Spine CT 11/20/24 12:46 IMPRESSION: No definite acute osseous abnormality cervical spine. The step-off seen at the base of the lateral rib is most likely artifactual. Clinical correlation and follow-up advised. Multilevel degenerative disc disease. Multilevel facet joint disease. Thoracic/Lumbar Spine CT 11/20/24 14:20 IMPRESSION: 1. 2.2 cm right lower lobe cavitary nodule suspicious for primary bronchogenic carcinoma. Consider noncontrast low-dose chest CT in 1-3 months. 2. Age-indeterminate T5 burst fracture. 3. Partially visualized fractures of right seventh-10th ribs, likely subacute or chronic, new from 03/17/2024. 4. Moderate thoracic spondylosis. 5. 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 6. Acute/subacute sacral insufficiency fractures. 7. Severe lumbar spondylosis. Pelvis X-Ray 11/21/24 13:04 IMPRESSION: 1. Sacral insufficiency fractures. Labs Labs: Laboratory Results - last 24 hr 11/22/24 06:12 WBC 9.4 RBC 3.72 L Hgb 11.8 L Hct 35.3 L MCV 94.9 MCH 31.7 MCHC 33.4 RDW 12.2 Plt Count 214 MPV 9.7 Sodium 137 Potassium 3.3 L Chloride 107 Carbon Dioxide 26 Anion Gap 4 BUN 17 Creatinine 0.66 L Estim Creat Clear Calc 39 Estimated GFR > 60 Glucose 96 Calcium 8.6
[2024-11-22] MEDS: MECLIZINE HCL 25 MG TABLET BY MOUTH (13:12)
[2024-11-22] MEDS: HYDROcodone/acetaminophen (*CRX) 5-325 MG TABLET 1 TAB PO (13:12)
[2024-11-22] MEDS: DEXTROSE 5%/0.45% SOD CHL 1,000 ML 40 ML IV CONT (21:39)
[2024-11-23] VITALS (7 sets, daily range): BP systolic 115–151; BP diastolic 67–87; PULSE 61–81; RESP 18–20; TEMP 36.2–37.3; O2SAT 95–97
[2024-11-23] MEDS: METOPROLOL SUCCINATE EXT REL 50 MG TABCR BY MOUTH (09:02)
[2024-11-23] MEDS: DOCUSATE SODIUM 100 MG CAPSULE PO (09:02)
[2024-11-23] MEDS: ASPIRIN 81 MG ENTERIC TABLET PO (09:02)
[2024-11-23] MEDS: ENOXAPARIN 30 MG/0.3 ML SYRINGE SUB-Q (09:02)
[2024-11-23] MEDS: POTASSIUM CHLORIDE 10 MEQ ER TABLET BY MOUTH (09:05)
[2024-11-23] MEDS: ACETAMINOPHEN 325 MG TABLET 650 MG PO ×3 (11:39→23:30)
--- NOTE | 2024-11-23 14:39 | P.PNIM_ITS ---
Progress Note: A&P Assessment and Plan (1) T5 vertebral fracture: Code(s): S22.059A - Unspecified fracture of T5-T6 vertebra, initial encounter for closed fracture Status: Acute Assessment and Plan: Neurosurgery consulted and cleared for PT/OT Pain management Orthopedics will follow in 4 weeks time Continue PT/ OT in hospital Awaiting insurance authorization for SNF rehab (2) Pelvic fracture: Code(s): S32.9XXA - Fracture of unspecified parts of lumbosacral spine and pelvis, initial encounter for closed fracture Status: Acute Assessment and Plan: Orthopedics consulted pending recommendations Pain management back brace , pt / ot recommended (3) Fall: Code(s): W19.XXXA - Unspecified fall, initial encounter Status: Acute Assessment and Plan: History of vertigo Continue with PT/OT (4) UTI (urinary tract infection): Code(s): N39.0 - Urinary tract infection, site not specified Status: Acute Assessment and Plan: [facility] high await uc, ua positive Culture with mixed genital kyaw reviewed on 11/23 and ceftriaxone stopped (started 11/20/2024) (5) Vertigo: Code(s): R42 - Dizziness and giddiness Status: Acute Assessment and Plan: QTC 463 Continue meclizine prn Would likely benefit from Cecelia exercises with PT (6) Lung nodule: Code(s): R91.1 - Solitary pulmonary nodule Status: Acute Assessment and Plan: IMPRESSION: 1. 2.2 cm right lower lobe cavitary nodule suspicious for primary bronchogenic carcinoma. Consider noncontrast low-dose chest CT in 1-3 months. 2. Age-indeterminate T5 burst fracture. 3. Partially visualized fractures of right seventh-10th ribs, likely subacute or chronic, new from 03/17/2024. 4. Moderate thoracic spondylosis. 5. 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 6. Acute/subacute sacral insufficiency fractures. 7. Severe lumbar spondylosis. Previously seen on outside CT from 06/03/2024 and stable at 2.2 cm Follow-up as outpatient with PCP and consider outpatient PET/CT vs serial CT's (7) Hypokalemia: Code(s): E87.6 - Hypokalemia Status: Acute Assessment and Plan: 11/22 K 3.3 11/23 increased KCL to 10 mEq daily and added extra dose of 20 mEq and stopped IV saline. Unclear why K is low. Check Mg. Consider surreptitious EtOH intake. Subjective Date/time seen: 11/23/24 14:39 Interval history: Only complaint is “in pain”. Appetite is fair. But not any different than at home. She also has chronic vertigo worse when she gets out of bed. Is looking forward to doing physical therapy at [facility] so that she can go back home. She denied chest pain or shortness of breath or abdominal pain or nausea. Denied change in bladder function. Denied abnormal bleeding. Denied focal weakness. Review of Systems Review of Systems: All systems reviewed & are unremarkable except as noted in HPI and below Exam Narrative: HEENT: PERRL, sclerae nonicteric, pharyngeal mucosa pink and intact NECK: No JVD CHEST: Clear to auscultation. Normal effort. HEART: NL S1/S2, regular, no murmur ABDOMEN: BS+, soft, nontender, no mass, no bruits EXTREMITIES: No cyanosis, edema, or clubbing NEUROLOGIC: CN intact and symmetric to inspection. MUSCULOSKELETAL: Tone and strength symmetric. PSYCH: Alert. Oriented to person, place, and time. Objective Data Vital Signs Vital Signs: Vital Signs - 24 hr 11/22/24 16:00 11/22/24 20:00 11/22/24 21:30 Temperature 97.8 F 98.9 F Pulse Rate 79 69 Respiratory Rate 17 20 Blood Pressure 135/77 146/80 H Pulse Oximetry 99 97 Oxygen Delivery Room Air 11/23/24 01:15 11/23/24 05:05 11/23/24 07:57 Temperature 97.8 F 97.1 F L 97.9 F Pulse Rate 81 67 63 Respiratory Rate 20 18 18 Blood Pressure 130/69 151/78 H 115/77 Pulse Oximetry 97 96 95 Oxygen Delivery 11/23/24 09:02 11/23/24 11:55 Temperature 98.1 F Pulse Rate 61 80 Respiratory Rate 18 Blood Pressure 117/67 Pulse Oximetry 95 Oxygen Delivery Intake/Output Intake/Output: Intake & Output 11/20/24 11/21/24 11/22/24 11/23/24 23:59 23:59 23:59 23:59 Intake Total 200 1000 1844 680 Output Total 250 450 300 Balance 660 257 1814 380 Meds/Results Medications: Active Medications Generic Name Dose Route Start Last Admin Trade Name Freq PRN Reason Stop Dose Admin Acetaminophen 650 mg 11/20/24 17:00 11/23/24 11:39 Acetaminophen 325 Mg Tablet PO 650 mg Q6H AIDE Administration Hydrocodone Bitart/Acetaminophen 1 tab 11/20/24 15:07 11/22/24 13:12 Hydrocodone/Acetaminophen (*Crx) 5-325 Mg Tablet PO 1 tab Q4H PRN Administration Pain Rated 4-6 Aspirin 81 mg 11/21/24 09:00 11/23/24 09:02 Aspirin 81 Mg Enteric Tablet PO 81 mg DAILY AIDE Administration Docusate Sodium 100 mg 11/21/24 09:00 11/23/24 09:02 Docusate Sodium 100 Mg Capsule PO 100 mg DAILY AIDE Administration Enoxaparin Sodium 30 mg 11/22/24 09:00 11/23/24 09:02 Enoxaparin 30 Mg/0.3 Ml Syringe SUB-Q 30 mg DAILY AIDE Administration Hydromorphone HCl 0.5 mg 11/20/24 15:07 Hydromorphone Hcl Inj (*Crx) 1 Mg/Ml Syr IV PUSH Q4H PRN Pain Rated 7-10 Ceftriaxone Sodium 1 gm in 50 mls @ 100 mls/hr 11/20/24 23:20 11/22/24 21:39 Rocephin 1 Gm/Ns 50 Ml IVPB 100 mls/hr DAILY@2200 AIDE Administration Dextrose/Sodium Chloride 1,000 mls @ 40 mls/hr 11/21/24 05:25 11/22/24 21:39 Dextrose 5% Sodium Chloride 0.45% IV CONT 40 mls/hr .Q24H AIDE Administration Meclizine HCl 25 mg 11/20/24 23:15 11/22/24 13:12 Meclizine Hcl 25 Mg Tablet BY MOUTH 25 mg BID PRN Administration Dizziness Metoprolol Succinate 50 mg 11/21/24 09:00 11/23/24 09:02 Metoprolol Succinate Ext Rel 50 Mg Tabcr BY MOUTH 50 mg DAILY AIDE Administration Potassium Chloride 10 meq 11/23/24 09:00 11/23/24 09:05 Potassium Chloride 10 Meq Er Tablet BY MOUTH 10 meq DAILY AIDE Administration Radiology Results: ITS Impressions Chest X-Ray 11/20/24 12:29 IMPRESSION: No acute cardiopulmonary pathology. Multiple healing rib fractures in the right hemithorax. Multilevel compression fracture. Anterolisthesis at the level of L1-L2. MRI evaluation advised. Head CT 11/20/24 12:42 IMPRESSION: No acute intracranial findings. Multiple old infarcts.. Cervical Spine CT 11/20/24 12:46 IMPRESSION: No definite acute osseous abnormality cervical spine. The step-off seen at the base of the lateral rib is most likely artifactual. Clinical correlation and follow-up advised. Multilevel degenerative disc disease. Multilevel facet joint disease. Thoracic/Lumbar Spine CT 11/20/24 14:20 IMPRESSION: 1. 2.2 cm right lower lobe cavitary nodule suspicious for primary bronchogenic carcinoma. Consider noncontrast low-dose chest CT in 1-3 months. 2. Age-indeterminate T5 burst fracture. 3. Partially visualized fractures of right seventh-10th ribs, likely subacute or chronic, new from 03/17/2024. 4. Moderate thoracic spondylosis. 5. 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 6. Acute/subacute sacral insufficiency fractures. 7. Severe lumbar spondylosis. Pelvis X-Ray 11/21/24 13:04 IMPRESSION: 1. Sacral insufficiency fractures.
[2024-11-23] MEDS: POTASSIUM CHLORIDE 20 MEQ ER TABLET PO (15:15)
[2024-11-23] MEDS: HYDROmorphone HCL INJ (*CRX) 1 MG/ML SYR 0.5 MG IV PUSH (21:05)
[2024-11-24] VITALS (7 sets, daily range): BP systolic 134–198; BP diastolic 68–94; PULSE 65–90; RESP 16–22; TEMP 36.6–37.7; O2SAT 96–98
[2024-11-24] MEDS: ACETAMINOPHEN 325 MG TABLET 650 MG PO ×4 (05:06→22:33)
[2024-11-24 07:25] LABS: Anion Gap 2 mmol/L (4-12); Blood Urea Nitrogen 10 mg/dL (7-17); Carbon Dioxide 28 mmol/L (22-30); Chloride 108 mmol/L (98-107); Estimated CRCL calculation 42 ml/min; Estimated Glomerular Filt Rate > 60; Glucose 89 mg/dL (65-110); Magnesium 1.8 mg/dL (1.6-2.3); Sodium 138 mmol/L (137-145)
--- NOTE | 2024-11-24 08:23 | P.PNIM_ITS ---
Progress Note: A&P Assessment and Plan (1) Fall: Code(s): W19.XXXA - Unspecified fall, initial encounter Status: Acute Assessment and Plan: Patient attempted to ambulate without her walker and fell backwards landing on her tailbone. She denies hitting her head or LOC. Patient not on any anticoagulation. - head CT: No acute intracranial findings. Multiple old infarcts. - c spine CT: No definite acute osseous abnormality cervical spine. The step-off seen at the base of the lateral rib is most likely artifactual. Clinical correlation and follow-up advised. Multilevel degenerative disc disease. Multilevel facet joint disease. - thoracic/lumbar CT: 1. 2.2 cm right lower lobe cavitary nodule suspicious for primary bronchogenic carcinoma. Consider noncontrast low-dose chest CT in 1-3 months. 2. Age-indeterminate T5 burst fracture. 3. Partially visualized fractures of right seventh-10th ribs, likely subacute or chronic, new from 03/17/2024. 4. Moderate thoracic spondylosis. 5. 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 6. Acute/subacute sacral insufficiency fractures. 7. Severe lumbar spondylosis. - pelvis XR: Sacral insufficiency fractures. - Continue with PT/OT (2) T5 vertebral fracture: Code(s): S22.059A - Unspecified fracture of T5-T6 vertebra, initial encounter for closed fracture Status: Acute Assessment and Plan: - thoracic/lumbar CT: Age-indeterminate T5 burst fracture. - Pain management - Neurosurgery consulted, appreciate recommendations do not think that a brace is necessary mobilize as tolerated from my standpoint and can work with PT/ OT (3) Pelvic fracture: Code(s): S32.9XXA - Fracture of unspecified parts of lumbosacral spine and pelvis, initial encounter for closed fracture Status: Acute Assessment and Plan: - pelvis XR: Sacral insufficiency fractures. - Pain management - Orthopedics consulted, appreciate recommendations Physical therapy can work on transfers bed to chair. Patient is to be partial weight bearing per ortho. Follow in 4 weeks time (4) UTI (urinary tract infection): Code(s): N39.0 - Urinary tract infection, site not specified Status: Acute Assessment and Plan: [facility] await uc, ua positive Culture with mixed genital kyaw reviewed on 11/23 and ceftriaxone stopped (started 11/20/2024) (5) Right lower lobe pulmonary nodule: Code(s): R91.1 - Solitary pulmonary nodule Status: Acute Assessment and Plan: Thoracic/lumbar CT: 2.2 cm right lower lobe cavitary nodule suspicious for primary bronchogenic carcinoma. Consider noncontrast low-dose chest CT in 1-3 months. - Previously seen on outside CT from 06/03/2024 and stable at 2.2 cm - Follow-up as outpatient with PCP and consider outpatient PET/CT vs serial CT's (6) Vertigo: Code(s): R42 - Dizziness and giddiness Status: Acute Assessment and Plan: QTC 463 Continue meclizine prn Would likely benefit from Cecelia exercises with PT (7) Hypokalemia: Code(s): E87.6 - Hypokalemia Status: Acute Assessment and Plan: Patient was slightly hypokalemic during admission. 11/22 K 3.3. 11/23 Resumed KCL to 10 mEq daily and added extra dose of 20 mEq and stopped IV saline. Mg 1.8. 11/24 K WNL Time Spent With Patient Time with patient: 25 - 35 minutes Subjective Date/time seen: 11/24/24 08:23 Interval history: 83 year old female with past medical history of dyslipidemia, hyperparathyroidism, and osteoporosis with chronic back pain presents to the hospital for a fall. Patient is pleasant sitting up in her chair. She has no complaints at this time denying chest pain, shortness of breath, palpitations, extremity tingling/numbness, nausea/vomiting and abdominal pain. She states that she continues to work with therapy and today was a bit more painful than yesterday. She notes that her pain regimen is covering well. Review of Systems Review of Systems: All systems reviewed & are unremarkable except as noted in HPI and below Exam Narrative: AF HR 90 RR 18 Spo2 97 BP 143/76 General: female in no acute respiratory distress who is nontoxic appearing, sitting up in chair HEENT: Normocephalic. Atraumatic. Extraocular movement intact. Sclera clear and anicteric. No facial asymmetry. Chest: Lungs are clear to auscultation bilaterally. No wheezes or crackles. CV: Heart was regular rate and rhythm. S1-S2. No murmurs, gallops, or rubs. Abd: Abdomen was soft. Nontender. Nondistended. Positive bowel sounds. No organomegaly or masses. Ext: No clubbing, cyanosis, or edema. 2+ DP pulses bilaterally. Neuro: Patient is alert and oriented x4. Strength is symmetrical in both upper and lower extremities. Speech is clear. Objective Data Vital Signs Vital Signs: Vital Signs - 24 hr 11/23/24 09:02 11/23/24 11:55 11/23/24 16:00 Temperature 98.1 F 97.8 F Pulse Rate 61 80 65 Respiratory Rate 18 18 Blood Pressure 117/67 140/68 Pulse Oximetry 95 97 Oxygen Delivery 11/23/24 20:00 11/23/24 22:15 11/24/24 01:15 Temperature 99.2 F 99.1 F Pulse Rate 73 69 Respiratory Rate 20 18 Blood Pressure 151/87 H 182/94 H Pulse Oximetry 97 97 Oxygen Delivery Room Air 11/24/24 04:30 11/24/24 07:52 Temperature 99.3 F 98.1 F Pulse Rate 73 65 Respiratory Rate 22 H 18 Blood Pressure 198/90 H 144/69 H Pulse Oximetry 98 96 Oxygen Delivery Intake/Output Intake/Output: Intake & Output 11/21/24 11/22/24 11/23/24 11/24/24 23:59 23:59 23:59 23:59 Intake Total 1000 1844 920 300 Output Total 250 450 850 Balance 750 1394 70 300 Meds/Results Medications: Active Medications Generic Name Dose Route Start Last Admin Trade Name Freq PRN Reason Stop Dose Admin Acetaminophen 650 mg 11/20/24 17:00 11/24/24 05:06 Acetaminophen 325 Mg Tablet PO 650 mg Q6H AIDE Administration Hydrocodone Bitart/Acetaminophen 1 tab 11/20/24 15:07 11/22/24 13:12 Hydrocodone/Acetaminophen (*Crx) 5-325 Mg Tablet PO 1 tab Q4H PRN Administration Pain Rated 4-6 Aspirin 81 mg 11/21/24 09:00 11/23/24 09:02 Aspirin 81 Mg Enteric Tablet PO 81 mg DAILY AIDE Administration Docusate Sodium 100 mg 11/21/24 09:00 11/23/24 09:02 Docusate Sodium 100 Mg Capsule PO 100 mg DAILY AIDE Administration Enoxaparin Sodium 30 mg 11/22/24 09:00 11/23/24 09:02 Enoxaparin 30 Mg/0.3 Ml Syringe SUB-Q 30 mg DAILY AIDE Administration Hydromorphone HCl 0.5 mg 11/20/24 15:07 11/23/24 21:05 Hydromorphone Hcl Inj (*Crx) 1 Mg/Ml Syr IV PUSH 0.5 mg Q4H PRN Administration Pain Rated 7-10 Meclizine HCl 25 mg 11/20/24 23:15 11/22/24 13:12 Meclizine Hcl 25 Mg Tablet BY MOUTH 25 mg BID PRN Administration Dizziness Metoprolol Succinate 50 mg 11/21/24 09:00 11/23/24 09:02 Metoprolol Succinate Ext Rel 50 Mg Tabcr BY MOUTH 50 mg DAILY AIDE Administration Potassium Chloride 10 meq 11/23/24 09:00 11/23/24 09:05 Potassium Chloride 10 Meq Er Tablet BY MOUTH 10 meq DAILY AIDE Administration Radiology Results: ITS Impressions Chest X-Ray 11/20/24 12:29 IMPRESSION: No acute cardiopulmonary pathology. Multiple healing rib fractures in the right hemithorax. Multilevel compression fracture. Anterolisthesis at the level of L1-L2. MRI evaluation advised. Head CT 11/20/24 12:42 IMPRESSION: No acute intracranial findings. Multiple old infarcts.. Cervical Spine CT 11/20/24 12:46 IMPRESSION: No definite acute osseous abnormality cervical spine. The step-off seen at the base of the lateral rib is most likely artifactual. Clinical correlation and follow-up advised. Multilevel degenerative disc disease. Multilevel facet joint disease. Thoracic/Lumbar Spine CT 11/20/24 14:20 IMPRESSION: 1. 2.2 cm right lower lobe cavitary nodule suspicious for primary bronchogenic carcinoma. Consider noncontrast low-dose chest CT in 1-3 months. 2. Age-indeterminate T5 burst fracture. 3. Partially visualized fractures of right seventh-10th ribs, likely subacute or chronic, new from 03/17/2024. 4. Moderate thoracic spondylosis. 5. 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 6. Acute/subacute sacral insufficiency fractures. 7. Severe lumbar spondylosis. Pelvis X-Ray 11/21/24 13:04 IMPRESSION: 1. Sacral insufficiency fractures. Labs Labs: Laboratory Results - last 24 hr 11/24/24 06:35 Sodium 138 Potassium 4.0 Chloride 108 H Carbon Dioxide 28 Anion Gap 2 L BUN 10 D Creatinine 0.61 L Estim Creat Clear Calc 42 Estimated GFR > 60 Glucose 89 Calcium 9.0 Magnesium 1.8 Quality VTE Prophylaxis VTE prophylaxis: mechanical ordered and pharmacologic ordered
[2024-11-24] MEDS: ASPIRIN 81 MG ENTERIC TABLET PO (08:26)
[2024-11-24] MEDS: POTASSIUM CHLORIDE 10 MEQ ER TABLET BY MOUTH (08:26)
[2024-11-24] MEDS: DOCUSATE SODIUM 100 MG CAPSULE PO (08:26)
[2024-11-24] MEDS: METOPROLOL SUCCINATE EXT REL 50 MG TABCR BY MOUTH (08:26)
[2024-11-24] MEDS: ENOXAPARIN 30 MG/0.3 ML SYRINGE SUB-Q (08:27)
[2024-11-24] MEDS: MECLIZINE HCL 25 MG TABLET BY MOUTH (12:31)
--- NOTE | 2024-11-24 13:58 | PCPTNOTE ---
Patient is a MAX ASSIST for bed mobility today per HARO after treatment session this morning with noted severe pain secondary to sacral and compression fractures, Pt. is not appropriate for Cecelia Maneuver Treatment on this date, 11/24/2024. - RR, PT
[2024-11-24] MEDS: HYDROcodone/acetaminophen (*CRX) 5-325 MG TABLET 1 TAB PO (15:28)
[2024-11-25 05:10] VITALS: BP 174/92; PULSE 85; RESP 16; TEMP 37.4; O2SAT 98
[2024-11-25] MEDS: ACETAMINOPHEN 325 MG TABLET 650 MG PO ×4 (05:18→22:05)
--- NOTE | 2024-11-25 07:36 | P.PNIM_ITS ---
Progress Note: A&P Assessment and Plan (1) Fall: Code(s): W19.XXXA - Unspecified fall, initial encounter Status: Acute Assessment and Plan: Patient attempted to ambulate without her walker and fell backwards landing on her tailbone. She denies hitting her head or LOC. Patient not on any anticoagulation. - head CT: No acute intracranial findings. Multiple old infarcts. - c spine CT: No definite acute osseous abnormality cervical spine. The step-off seen at the base of the lateral rib is most likely artifactual. Clinical correlation and follow-up advised. Multilevel degenerative disc disease. Multilevel facet joint disease. - thoracic/lumbar CT: 1. 2.2 cm right lower lobe cavitary nodule suspicious for primary bronchogenic carcinoma. Consider noncontrast low-dose chest CT in 1-3 months. 2. Age-indeterminate T5 burst fracture. 3. Partially visualized fractures of right seventh-10th ribs, likely subacute or chronic, new from 03/17/2024. 4. Moderate thoracic spondylosis. 5. 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 6. Acute/subacute sacral insufficiency fractures. 7. Severe lumbar spondylosis. - pelvis XR: Sacral insufficiency fractures. - Continue with PT/OT per ortho recommendations (2) T5 vertebral fracture: Code(s): S22.059A - Unspecified fracture of T5-T6 vertebra, initial encounter for closed fracture Status: Acute Assessment and Plan: - thoracic/lumbar CT: Age-indeterminate T5 burst fracture. - Pain management - Neurosurgery consulted, appreciate recommendations do not think that a brace is necessary mobilize as tolerated from my standpoint and can work with PT/ OT (3) Pelvic fracture: Code(s): S32.9XXA - Fracture of unspecified parts of lumbosacral spine and pelvis, initial encounter for closed fracture Status: Acute Assessment and Plan: - pelvis XR: Sacral insufficiency fractures. - Pain management - Orthopedics consulted, appreciate recommendations Physical therapy can work on transfers bed to chair. Patient is to be partial weight bearing per ortho. Follow in 4 weeks time (4) UTI (urinary tract infection): Code(s): N39.0 - Urinary tract infection, site not specified Status: Acute Assessment and Plan: [facility] await uc, ua positive Culture with mixed genital kyaw reviewed on 11/23 and ceftriaxone stopped (started 11/20/2024) (5) Right lower lobe pulmonary nodule: Code(s): R91.1 - Solitary pulmonary nodule Status: Acute Assessment and Plan: Thoracic/lumbar CT: 2.2 cm right lower lobe cavitary nodule suspicious for primary bronchogenic carcinoma. Consider noncontrast low-dose chest CT in 1-3 months. - Previously seen on outside CT from 06/03/2024 and stable at 2.2 cm - Follow-up as outpatient with PCP and consider outpatient PET/CT vs serial CT's (6) Vertigo: Code(s): R42 - Dizziness and giddiness Status: Acute Assessment and Plan: QTC 463 Continue meclizine prn Would likely benefit from Cecelia exercises with PT (7) Hypokalemia: Code(s): E87.6 - Hypokalemia Status: Acute Assessment and Plan: Patient was slightly hypokalemic during admission. 11/22 K 3.3. 11/23 Resumed KCL to 10 mEq daily and added extra dose of 20 mEq and stopped IV saline. Mg 1.8. 11/25 K WNL Time Spent With Patient Time with patient: 25 - 35 minutes Subjective Date/time seen: 11/25/24 07:36 Interval history: 83 year old female with past medical history of dyslipidemia, hyperparathyroidism, and osteoporosis with chronic back pain presents to the hospital for a fall. patient is pleasant sitting up comfortably in her chair. She states that her pain is well controlled on the current regimen. she states that her pain is improved since yesterday. She has no complaints denying chest pain, shortness a breath, palpitations, nausea /vomiting, abdominal pain, and tingling/numbness. Per care coordination patient has acceptance and authorization however facility unable to take her today. Plan for discharge tomorrow. Review of Systems Review of Systems: All systems reviewed & are unremarkable except as noted in HPI and below Exam Narrative: AF HR 95 RR 18 Spo2 97 BP 136/92 General: female in no acute respiratory distress who is nontoxic appearing, sitting up in chair HEENT: Normocephalic. Atraumatic. Extraocular movement intact. Sclera clear and anicteric. No facial asymmetry. Chest: Lungs are clear to auscultation bilaterally. No wheezes or crackles. CV: Heart was regular rate and rhythm. S1-S2. No murmurs, gallops, or rubs. Abd: Abdomen was soft. Nontender. Nondistended. Ext: No clubbing, cyanosis, or edema. 2+ DP pulses bilaterally. Neuro: Patient is alert and oriented x4. Strength is symmetrical in both upper and lower extremities. Speech is clear. Objective Data Vital Signs Vital Signs: Vital Signs - 24 hr 11/24/24 07:52 11/24/24 08:25 11/24/24 08:26 Temperature 98.1 F Pulse Rate 65 65 Respiratory Rate 18 Blood Pressure 144/69 H Pulse Oximetry 96 Oxygen Delivery Room Air 11/24/24 11:55 11/24/24 16:00 11/24/24 20:00 Temperature 97.8 F 98.1 F Pulse Rate 90 87 Respiratory Rate 18 18 Blood Pressure 143/76 H 138/93 H Pulse Oximetry 97 97 Oxygen Delivery Room Air 11/24/24 20:35 11/25/24 05:10 Temperature 99.8 F H 99.3 F Pulse Rate 79 85 Respiratory Rate 16 16 Blood Pressure 134/68 174/92 H Pulse Oximetry 97 98 Oxygen Delivery Intake/Output Intake/Output: Intake & Output 11/22/24 11/23/24 11/24/24 11/25/24 23:59 23:59 23:59 23:59 Intake Total 8661 816 4129 550 Output Total 450 850 500 Balance 1394 70 520 550 Meds/Results Medications: Active Medications Generic Name Dose Route Start Last Admin Trade Name Freq PRN Reason Stop Dose Admin Acetaminophen 650 mg 11/20/24 17:00 11/25/24 05:18 Acetaminophen 325 Mg Tablet PO 650 mg Q6H AIDE Administration Hydrocodone Bitart/Acetaminophen 1 tab 11/20/24 15:07 11/24/24 15:28 Hydrocodone/Acetaminophen (*Crx) 5-325 Mg Tablet PO 1 tab Q4H PRN Administration Pain Rated 4-6 Aspirin 81 mg 11/21/24 09:00 11/24/24 08:26 Aspirin 81 Mg Enteric Tablet PO 81 mg DAILY AIDE Administration Docusate Sodium 100 mg 11/21/24 09:00 11/24/24 08:26 Docusate Sodium 100 Mg Capsule PO 100 mg DAILY AIDE Administration Enoxaparin Sodium 30 mg 11/22/24 09:00 11/24/24 08:27 Enoxaparin 30 Mg/0.3 Ml Syringe SUB-Q 30 mg DAILY AIDE Administration Hydromorphone HCl 0.5 mg 11/20/24 15:07 11/23/24 21:05 Hydromorphone Hcl Inj (*Crx) 1 Mg/Ml Syr IV PUSH 0.5 mg Q4H PRN Administration Pain Rated 7-10 Meclizine HCl 25 mg 11/20/24 23:15 11/24/24 12:31 Meclizine Hcl 25 Mg Tablet BY MOUTH 25 mg BID PRN Administration Dizziness Metoprolol Succinate 50 mg 11/21/24 09:00 11/24/24 08:26 Metoprolol Succinate Ext Rel 50 Mg Tabcr BY MOUTH 50 mg DAILY AIDE Administration Potassium Chloride 10 meq 11/23/24 09:00 11/24/24 08:26 Potassium Chloride 10 Meq Er Tablet BY MOUTH 10 meq DAILY AIDE Administration Radiology Results: ITS Impressions Chest X-Ray 11/20/24 12:29 IMPRESSION: No acute cardiopulmonary pathology. Multiple healing rib fractures in the right hemithorax. Multilevel compression fracture. Anterolisthesis at the level of L1-L2. MRI evaluation advised. Head CT 11/20/24 12:42 IMPRESSION: No acute intracranial findings. Multiple old infarcts.. Cervical Spine CT 11/20/24 12:46 IMPRESSION: No definite acute osseous abnormality cervical spine. The step-off seen at the base of the lateral rib is most likely artifactual. Clinical correlation and follow-up advised. Multilevel degenerative disc disease. Multilevel facet joint disease. Thoracic/Lumbar Spine CT 11/20/24 14:20 IMPRESSION: 1. 2.2 cm right lower lobe cavitary nodule suspicious for primary bronchogenic carcinoma. Consider noncontrast low-dose chest CT in 1-3 months. 2. Age-indeterminate T5 burst fracture. 3. Partially visualized fractures of right seventh-10th ribs, likely subacute or chronic, new from 03/17/2024. 4. Moderate thoracic spondylosis. 5. 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 6. Acute/subacute sacral insufficiency fractures. 7. Severe lumbar spondylosis. Pelvis X-Ray 11/21/24 13:04 IMPRESSION: 1. Sacral insufficiency fractures. Quality VTE Prophylaxis VTE prophylaxis: mechanical ordered and pharmacologic ordered
[2024-11-25 07:55] VITALS: BP 173/90; PULSE 74; RESP 18; TEMP 36.8; O2SAT 98
[2024-11-25 08:54] LABS: Basophils Absolute Auto 0.1 K/mm3 (0.0-0.1); Basophils Percent Auto 0.4 % (0.2-1.2); Eosinophils Absolute Auto 0.3 K/mm3 (0-0.3); Eosinophils Percent Auto 2.8 % (0-4.4); Hematocrit 36.8 % (37.0-47.0); Hemoglobin 12.2 g/dL (12.0-15.0); Immature Granulocyte Absolute 0.08 K/mm3 (0.00-0.031); Immature Granulocyte Percent A 0.7 % (0-0.5); Lymphocytes Absolute Auto 1.52 K/mm3 (0.9-3.2); Lymphocytes Percent Auto 12.7 % (18.3-44.2); Mean Corpuscular HGB Conc 33.2 g/dl (32-36); Mean Corpuscular Hemoglobin 32.2 pg (26-34); Mean Corpuscular Volume 97.1 fl (80-100); Mean Platelet Volume 9.4 fl (7.4-10.4); Monocytes Absolute Auto 1.1 K/mm3 (0.1-0.6); Neutrophils Absolute Auto 8.9 K/mm3 (1.3-6.7); Neutrophils Percent Auto 74.4 % (45.5-73.1); Platelet Count Result 281 k/mm3 (150-375); Red Blood Count 3.79 M/mm3 (4.2-5.4); Red Cell Distribution Width 12.3 % (11.5-14.5)
[2024-11-25 09:06] LABS: Anion Gap 0 mmol/L (4-12); Blood Urea Nitrogen 10 mg/dL (7-17); Calcium 9.5 mg/dL (8.4-10.2); Carbon Dioxide 30 mmol/L (22-30); Chloride 107 mmol/L (98-107); Estimated CRCL calculation 38 ml/min; Estimated Glomerular Filt Rate > 60; Glucose 96 mg/dL (65-110); Potassium 4.2 mmol/L (3.4-5.0); Sodium 137 mmol/L (137-145)
[2024-11-25 09:11] VITALS: PULSE 74
[2024-11-25] MEDS: DOCUSATE SODIUM 100 MG CAPSULE PO (09:11)
[2024-11-25] MEDS: METOPROLOL SUCCINATE EXT REL 50 MG TABCR BY MOUTH (09:11)
[2024-11-25] MEDS: POTASSIUM CHLORIDE 10 MEQ ER TABLET BY MOUTH (09:11)
[2024-11-25] MEDS: ENOXAPARIN 40 MG/0.4 ML SYRINGE SUB-Q (09:12)
[2024-11-25] MEDS: ASPIRIN 81 MG ENTERIC TABLET PO (09:12)
[2024-11-25 12:00] VITALS: BP 136/92; PULSE 95; RESP 18; TEMP 36.4; O2SAT 97
[2024-11-25 16:00] VITALS: BP 136/90; PULSE 98; RESP 18; TEMP 36.7; O2SAT 98
[2024-11-25] MEDS: MECLIZINE HCL 25 MG TABLET BY MOUTH (17:00)
[2024-11-25 20:30] VITALS: BP 136/84; PULSE 89; RESP 20; TEMP 36.9; O2SAT 97
[2024-11-26 00:45] VITALS: PULSE 84; RESP 18; TEMP 36.9; O2SAT 96
[2024-11-26] MEDS: ACETAMINOPHEN 325 MG TABLET 650 MG PO ×3 (05:04→18:15)
[2024-11-26 05:10] VITALS: BP 164/92; PULSE 80; RESP 20; TEMP 37.3; O2SAT 98
[2024-11-26 06:29] LABS: Basophils Percent Auto 0.4 % (0.2-1.2); Eosinophils Absolute Auto 0.5 K/mm3 (0-0.3); Hematocrit 36.6 % (37.0-47.0); Hemoglobin 12.1 g/dL (12.0-15.0); Immature Granulocyte Absolute 0.06 K/mm3 (0.00-0.031); Immature Granulocyte Percent A 0.5 % (0-0.5); Lymphocytes Absolute Auto 1.73 K/mm3 (0.9-3.2); Lymphocytes Percent Auto 15.3 % (18.3-44.2); Mean Corpuscular HGB Conc 33.1 g/dl (32-36); Mean Corpuscular Volume 96.8 fl (80-100); Mean Platelet Volume 9.4 fl (7.4-10.4); Monocytes Absolute Auto 1.3 K/mm3 (0.1-0.6); Monocytes Percent Auto 11.7 % (2.6-8.5); Neutrophils Absolute Auto 7.7 K/mm3 (1.3-6.7); Neutrophils Percent Auto 68.1 % (45.5-73.1); Platelet Count Result 296 k/mm3 (150-375); Red Blood Count 3.78 M/mm3 (4.2-5.4); Red Cell Distribution Width 12.2 % (11.5-14.5); White Blood Count 11.3 K/mm3 (4.5-10.0)
[2024-11-26 06:48] LABS: Anion Gap 3 mmol/L (4-12); Blood Urea Nitrogen 10 mg/dL (7-17); Calcium 9.7 mg/dL (8.4-10.2); Carbon Dioxide 29 mmol/L (22-30); Chloride 104 mmol/L (98-107); Estimated CRCL calculation 38 ml/min; Estimated Glomerular Filt Rate > 60; Glucose 92 mg/dL (65-110); Potassium 3.9 mmol/L (3.4-5.0); Sodium 136 mmol/L (137-145)
[2024-11-26 08:00] VITALS: BP 141/78; PULSE 79; RESP 18; TEMP 36.6; O2SAT 99
[2024-11-26] MEDS: DOCUSATE SODIUM 100 MG CAPSULE PO (09:22)
[2024-11-26] MEDS: METOPROLOL SUCCINATE EXT REL 50 MG TABCR BY MOUTH (09:22)
[2024-11-26] MEDS: POTASSIUM CHLORIDE 10 MEQ ER TABLET BY MOUTH (09:22)
[2024-11-26] MEDS: ENOXAPARIN 40 MG/0.4 ML SYRINGE SUB-Q (09:22)
[2024-11-26] MEDS: ASPIRIN 81 MG ENTERIC TABLET PO (09:22)
--- NOTE | 2024-11-26 11:21 | PCNFU ---
Nutrition Follow-Up Complete: Suboptimal po intake related to appetite as evidenced by pt report, charted intake Goal:PO intake 50% or greater Pt meeting goal. Continue with same goal. Pt current nutrition is Regular, Ensure compact BID. Nutrition recommendation: continue with current plan of care Last recorded weight is 45.4 kg. Bowel Motility: +BM 11/25 Labs Reviewed: Hct:36.6, NA:136, Cr:0.68 Meds Noted: KCL Skin: WNL Additional Notes: pt continues on a regular diet, eating well for her, charted intake 25-100%, pt also drinking the Ensure compact. Encourage po intake. Agree with orders. Monitor intake, wt, labs. Follow up in 5 days.
[2024-11-26 12:00] VITALS: BP 169/88; PULSE 80; RESP 20; TEMP 36.9; O2SAT 100
--- NOTE | 2024-11-26 12:54 | PM.PNORT ---
Progress Note: A&P Assessment and Plan (1) Sacral insufficiency fracture: Qualifiers: Encounter type: initial encounter Qualified Code(s): M84.48XA - Pathological fracture, other site, initial encounter for fracture Code(s): M84.48XA - Pathological fracture, other site, initial encounter for fracture Status: Acute Subjective Subjective Date/Time Seen: 11/26/24 12:54 Patient is hospital day 6. She has T5 compression fracture the categorized as a burst fracture without retropulsion and bilateral nondisplaced sacral ala fractures from a fall prior to admission onto her buttocks. She has been getting up the chair with therapy. She has not been up today so far. She is quite comfortable at this time. She denies any complaints. 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 Plans to transfer her today or tomorrow to rehab facility are noted. Her creatinine clearance has been consistently about 30 other than at admission when it was below 30 and the hospitalist service increased her Lovenox to 40 mg subcu every 24 hours. I think that is probably the best. Her risk of bleeding around her compression fracture in her spine should be very low at this stage. She is also on a baby aspirin daily. I will make a modification on the discharge summary as to the proper dose and I would recommend she continue on this for at least 4 weeks. It is suspected that she has lung cancer which would also put her at much higher risk for thromboembolic complications. Objective Data Vital Signs Vital Signs: Vital Signs - 24 hr 11/25/24 16:00 11/25/24 20:00 11/25/24 20:30 Temperature 36.7 C 36.9 C Pulse Rate 98 89 Respiratory Rate 18 20 Blood Pressure 136/90 136/84 Pulse Oximetry 98 97 Oxygen Delivery Room Air 11/26/24 00:45 11/26/24 05:10 11/26/24 08:00 Temperature 36.9 C 37.3 C Pulse Rate 84 80 Respiratory Rate 18 20 Blood Pressure 164/92 H Pulse Oximetry 96 98 Oxygen Delivery Room Air 11/26/24 08:00 Temperature 36.6 C Pulse Rate 79 Respiratory Rate 18 Blood Pressure 141/78 H Pulse Oximetry 99 Oxygen Delivery Intake/Output Intake/Output: Intake & Output 11/23/24 11/24/24 11/25/24 11/26/24 23:59 23:59 23:59 23:59 Intake Total 920 1020 1348 200 Output Total 850 500 700 Balance 70 520 1348 -500 Meds/Results Medications: Active Medications Generic Name Dose Route Start Last Admin Trade Name Freq PRN Reason Stop Dose Admin Acetaminophen 650 mg 11/20/24 17:00 11/26/24 10:49 Acetaminophen 325 Mg Tablet PO 650 mg Q6H AIDE Administration Hydrocodone Bitart/Acetaminophen 1 tab 11/20/24 15:07 11/24/24 15:28 Hydrocodone/Acetaminophen (*Crx) 5-325 Mg Tablet PO 1 tab Q4H PRN Administration Pain Rated 4-6 Aspirin 81 mg 11/21/24 09:00 11/26/24 09:22 Aspirin 81 Mg Enteric Tablet PO 81 mg DAILY AIDE Administration Docusate Sodium 100 mg 11/21/24 09:00 11/26/24 09:22 Docusate Sodium 100 Mg Capsule PO 100 mg DAILY AIDE Administration Enoxaparin Sodium 40 mg 11/25/24 09:00 11/26/24 09:22 Enoxaparin 40 Mg/0.4 Ml Syringe SUB-Q 40 mg DAILY AIDE Administration Hydromorphone HCl 0.5 mg 11/20/24 15:07 11/23/24 21:05 Hydromorphone Hcl Inj (*Crx) 1 Mg/Ml Syr IV PUSH 0.5 mg Q4H PRN Administration Pain Rated 7-10 Meclizine HCl 25 mg 11/20/24 23:15 11/25/24 17:00 Meclizine Hcl 25 Mg Tablet BY MOUTH 25 mg BID PRN Administration Dizziness Metoprolol Succinate 50 mg 11/21/24 09:00 11/26/24 09:22 Metoprolol Succinate Ext Rel 50 Mg Tabcr BY MOUTH 50 mg DAILY AIDE Administration Potassium Chloride 10 meq 11/23/24 09:00 11/26/24 09:22 Potassium Chloride 10 Meq Er Tablet BY MOUTH 10 meq DAILY AIDE Administration Radiology Results: ITS Impressions Chest X-Ray 11/20/24 12:29 IMPRESSION: No acute cardiopulmonary pathology. Multiple healing rib fractures in the right hemithorax. Multilevel compression fracture. Anterolisthesis at the level of L1-L2. MRI evaluation advised. Head CT 11/20/24 12:42 IMPRESSION: No acute intracranial findings. Multiple old infarcts.. Cervical Spine CT 11/20/24 12:46 IMPRESSION: No definite acute osseous abnormality cervical spine. The step-off seen at the base of the lateral rib is most likely artifactual. Clinical correlation and follow-up advised. Multilevel degenerative disc disease. Multilevel facet joint disease. Thoracic/Lumbar Spine CT 11/20/24 14:20 IMPRESSION: 1. 2.2 cm right lower lobe cavitary nodule suspicious for primary bronchogenic carcinoma. Consider noncontrast low-dose chest CT in 1-3 months. 2. Age-indeterminate T5 burst fracture. 3. Partially visualized fractures of right seventh-10th ribs, likely subacute or chronic, new from 03/17/2024. 4. Moderate thoracic spondylosis. 5. 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 6. Acute/subacute sacral insufficiency fractures. 7. Severe lumbar spondylosis. Pelvis X-Ray 11/21/24 13:04 IMPRESSION: 1. Sacral insufficiency fractures. Labs Labs: Laboratory Results - last 24 hr 11/26/24 06:03 WBC 11.3 H RBC 3.78 L Hgb 12.1 Hct 36.6 L MCV 96.8 MCH 32.0 MCHC 33.1 RDW 12.2 Plt Count 296 MPV 9.4 Immature Gran % (Auto) 0.5 Neut % (Auto) 68.1 Lymph % (Auto) 15.3 L [place] % (Auto) 11.7 H Eos % (Auto) 4.0 Baso % (Auto) 0.4 Lymph # (Auto) 1.73 [place] # (Auto) 1.3 H Eos # (Auto) 0.5 H Baso # (Auto) 0.0 Abs Immat Gran (auto) 0.06 H Absolute Neuts (auto) 7.7 H Absolute Nucleated RBC 0.000 Nucleated RBC % 0.0 Sodium 136 L Potassium 3.9 Chloride 104 Carbon Dioxide 29 Anion Gap 3 L BUN 10 Creatinine 0.68 L Estim Creat Clear Calc 38 Estimated GFR > 60 Glucose 92 Calcium 9.7
--- NOTE | 2024-11-26 15:08 | P.DS_ITS ---
DS: Admitting Diagnosis Discharge Date 11/26/2024 Admitting Diagnosis fall T5 vertebral fracture pelvic fracture urinary tract infection right lower lobe pulmonary nodule hypokalemia DS: Discharge Diagnosis Discharge Diagnosis (1) Fall: Code(s): W19.XXXA - Unspecified fall, initial encounter Status: Acute (2) T5 vertebral fracture: Code(s): S22.059A - Unspecified fracture of T5-T6 vertebra, initial encounter for closed fracture Status: Acute (3) Pelvic fracture: Code(s): S32.9XXA - Fracture of unspecified parts of lumbosacral spine and pelvis, initial encounter for closed fracture Status: Acute (4) UTI (urinary tract infection): Code(s): N39.0 - Urinary tract infection, site not specified Status: Acute (5) Right lower lobe pulmonary nodule: Code(s): R91.1 - Solitary pulmonary nodule Status: Acute (6) Vertigo: Code(s): R42 - Dizziness and giddiness Status: Acute (7) Hypokalemia: Code(s): E87.6 - Hypokalemia Status: Acute DS: Summary Hospital Course Reason for hospitalization: fall T5 vertebral fracture pelvic fracture urinary tract infection right lower lobe pulmonary nodule hypokalemia Hospital Course: 83 year old female with past medical history of dyslipidemia, hyperparathyroidism, and osteoporosis with chronic back pain presents to the hospital for a mechanical fall where patient attempted to ambulate without her walker and fell backwards landing on her tailbone. On admission urinalysis was concerning for infection. Started on antibiotics at that time. Culture was negative and antibiotics were discontinued. 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 C spine CT showed no definite acute osseous abnormality cervical spine, the step-off seen at the base of the lateral rib is most likely artifactual, and multilevel degenerative disc disease. Multilevel facet joint disease. Thoracic/lumbar CT showed 2.2 cm right lower lobe cavitary nodule suspicious for primary bronchogenic carcinoma. 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 Pelvis XR showed sacral insufficiency fractures. Neurosurgery consulted for T5 burst fracture. Per neurosurgery this was a T5 burst fracture with 40% loss of height and no retropulsion. A brace was not necessary and patient was able to work with PT/OT. Ortho was consulted for the pelvic fractures. Per ortho patient was to remain partial weight bearing with bed to chair transfers. Advised against long walks with a walker up and down the halls until her fractures are healed to avoid delayed union of her bilateral sacral ala fractures. Patient is to remain on lovenox for DVT ppx and follow up with ortho in 4 weeks. Patient has a known pulmonary nodule that was previously seen in May. She is to follow-up as outpatient with PCP and consider outpatient PET/CT vs serial CT's. During admission patient was noted to be slightly hypokalemic requiring supplementation. This resolved prior to discharge. At time of discharge patient had no complaints denying chest pain, shortness of breath, palpitations, tingling/numbness, nausea/vomiting and abdominal pain. Patient discharged in a stable condition to SNF. She is to follow up with her primary care provider in 1 week. She is to follow up with Neurosurgery and Orthopedics as scheduled. Status at Discharge Functional status at discharge: uses cane/walker Time Spent with Patient Time attestation: Total time spent providing and/or coordinating discharge services: Time spent: Greater than 30 minutes Exam Narrative: AF HR 79 RR 18 SpO2 99 RA BP 141/78 General: female in no acute respiratory distress who is nontoxic appearing, sitting on the side of the bed HEENT: Normocephalic. Atraumatic. Extraocular movement intact. Sclera clear and anicteric. No facial asymmetry. Chest: Lungs are clear to auscultation bilaterally. No wheezes or crackles. CV: Heart was regular rate and rhythm. S1-S2. No murmurs, gallops, or rubs. Abd: Abdomen was soft. Nontender. Nondistended. Ext: No clubbing, cyanosis, or edema. 2+ DP pulses bilaterally. Neuro: Patient is alert and oriented x 3. Speech is clear. DS: Data Data Completed and Pending Completed studies during hospitalization: pelvis x-ray lumbar/thoracic spine CT C-spine CT head CT chest x-ray Labs on day of discharge: Labs from last 24 hours 11/26/24 06:03 WBC 11.3 H RBC 3.78 L Hgb 12.1 Hct 36.6 L MCV 96.8 MCH 32.0 MCHC 33.1 RDW 12.2 Plt Count 296 MPV 9.4 Immature Gran % (Auto) 0.5 Neut % (Auto) 68.1 Lymph % (Auto) 15.3 L [place] % (Auto) 11.7 H Eos % (Auto) 4.0 Baso % (Auto) 0.4 Lymph # (Auto) 1.73 [place] # (Auto) 1.3 H Eos # (Auto) 0.5 H Baso # (Auto) 0.0 Abs Immat Gran (auto) 0.06 H Absolute Neuts (auto) 7.7 H Absolute Nucleated RBC 0.000 Nucleated RBC % 0.0 Sodium 136 L Potassium 3.9 Chloride 104 Carbon Dioxide 29 Anion Gap 3 L BUN 10 Creatinine 0.68 L Estim Creat Clear Calc 38 Estimated GFR > 60 Glucose 92 Calcium 9.7 Discharge Plan Discharge Attending physician on discharge: Guero Strong Consulting providers: Ester Valdez; John Arthur Discharging Clinician: Katja Whitaker Anticipated Discharge Date/Time: 11/26/24 12:07 Patient Disposition: SNF Activity: as tolerated and other - see discharge instructions Diet: as tolerated and heart healthy Discharge Instructions: Discharge disposition: Patient admitted to the hospital following a fall Imaging showed a sacral insufficiency fracture and T5 burst fracture Patient evaluated by neurosurgery for T5 burst fracture, no brace required at this point. Follow up in outpatient setting. Call for an appointment. Patient evaluated by orthopedics for pelvis fracture, no surgical intervention required. See physical therapy instructions below. Follow up in outpatient office in 4 weeks. Cbc on 12/02/2024. Call MD if platelets less than 100,000 or hgb less than 10.. Call for appointment to see Dr. Arthur in 4 weeks in the office. [phone] Continue norco as needed for pain, attached is information on this medication. Do not drive or operate heavy machinery while on this medication. Physical therapy: Work on bed to chair transfers. She should be partial weight-bearing on both legs during this with weight on the walker. Gradually she can be advanced to walking a few steps partial weight-bearing with a walker. I advise against long walks with a walker up and down the halls until her fractures are healed to avoid delayed union of her bilateral sacral ala fractures. Eat well balanced meals and stay hydrated Keep active to remain strong Avoid use of diapers or pads Good jacinda Care every 2 hours Trend urine output Monitor blood pressures Take caution while standing, rising, or moving Change positions slowly taking a break between each position change If you standing feel dizzy sat back down and take a break Patient has a right pulmonary nodule as seen on imaging that is unchanged from May 2024. Follow-up as outpatient with PCP and consider outpatient PET/CT vs serial CT's Encouraged to continue with yearly vaccinations Return to the emergency department if he developed sudden shortness of breath, chest pain, nausea, vomiting, upset stomach or intractable diarrhea Return to the emergency department if you develop fever greater than 101.5 Follow-up with the primary care physician within 1-2 weeks Thank you for [facility] for your healthcare needs Patient Instructions: Hydrocodone/Acetaminophen (By mouth), Pelvic Fracture (DC), Thoracolumbar Fracture (DC) Patient Language: Northern Irish Stand Alone Forms: General Discharge Information Follow-up/Referrals: Herminio Ayala MD [Primary Care Provider] - 1 Week John Arthur MD [Physician] - 4 Weeks Ester Valdez MD [Physician] - Call for Appointment Discharge Medications: New hydrocodone-acetaminophen 5-325 mg tablet 1 tablet PO Q4H PRN (Reason: pain) Qty: 7 0RF enoxaparin [Lovenox] 40 mg/0.4 mL syringe 40 mg subcut Q24H Qty: 12 1RF Continued loperamide [Anti-Diarrheal (loperamide)] 2 mg tablet 2 mg PO Q6H PRN (Reason: loose stool) Qty: 30 0RF Rx Instructions: Initial: 4 mg, followed by 2 mg after each loose stool; maximum: 16 mg/day aspirin 81 mg tablet,delayed release (DR/EC) 81 mg PO DAILY multivitamin Tablet 1 tablet PO DAILY cholecalciferol (vitamin D3) 25 mcg (1,000 unit) capsule 25 mcg PO DAILY metoprolol succinate 50 mg tablet extended release 24 hr See Rx Instructions .ROUTE .COMPLEX Qty: 90 1RF Dose Instruction: TAKE 1 TABLET BY MOUTH EVERY DAY Rx Instructions: TAKE 1 TABLET BY MOUTH EVERY DAY meclizine 25 mg tablet See Rx Instructions .ROUTE .COMPLEX Qty: 180 0RF Dose Instruction: TAKE 1 TABLET BY MOUTH TWICE A DAY NEEDED FOR DIZZINESS Rx Instructions: TAKE 1 TABLET BY MOUTH TWICE A DAY NEEDED FOR DIZZINESS potassium chloride 10 mEq tablet extended release See Rx Instructions .ROUTE .COMPLEX Qty: 90 1RF Dose Instruction: TAKE 1 TABLET BY MOUTH EVERY DAY Rx Instructions: TAKE 1 TABLET BY MOUTH EVERY DAY Date of admission: 11/20/24 15:08 Primary Care Provider: Herminio Ayala Admitting Provider: Kalyan Sabillon Attending physician on admission: Katja Whitaker Condition: Stable Hospitalist MIPS Heart Failure (Exclusion) Patient has history of Heart Transplant or Left Ventricular Assistive Device?: No IF YES, STOP HERE Heart Failure (Qualifier) Patient has current or prior documentation of LVEF less than or equal to 40%, or mod/servere depressed LVSF?: No IF NO, STOP HERE
[2024-11-26 16:00] VITALS: TEMP 36.9
[2024-11-26 16:12] LABS: SARS-CoV-2 RNA PCR Negative (Negative)
[2024-11-26] MEDS: MECLIZINE HCL 25 MG TABLET BY MOUTH (18:16)
--- NOTE | 2024-11-26 20:45 | PC.NURSE ---
EMS here to transfer Pt. to [facility] prior to assessment being completed. Report given to EMS staff & Pt. assisted in being moved from our bed to their cot. Pt. tolerated bed transfer well.
== END 2024-11-26 20:55 | DRG 544 ==
LOC: ANHED 12:47 → ANH3MEDSUR 15:55
PROVIDERS: Family Medicine; Internal Medicine; Nurse Practitioner Gerontology; Admitting Provider Internal Medicine; Emergency Provider Student in an Organized Health Care Education/Training Program; PCP Family Medicine; Visit Provider Student in an Organized Health Care Education/Training Program
DX: M84.48XA Pathological fracture, other site, initial encounter for fracture (principal); E87.6 Hypokalemia; E78.5 Hyperlipidemia, unspecified; E21.3 Hyperparathyroidism, unspecified; R42 Dizziness and giddiness; R91.1 Solitary pulmonary nodule; M47.816 Spondylosis without myelopathy or radiculopathy, lumbar region; M47.814 Spondylosis without myelopathy or radiculopathy, thoracic region; M81.0 Age-related osteoporosis without current pathological fracture; M54.9 Dorsalgia, unspecified; G89.29 Other chronic pain; W19.XXXA Unspecified fall, initial encounter; Z20.822 Contact with and (suspected) exposure to COVID-19; S22.41XD Multiple fractures of ribs, right side, subsequent encounter for fracture with routine healing; Z79.82 Long term (current) use of aspirin
CPT/HCPCS: 36415; 70450; 71046; 72125; 72128; 72131; 72170; 80048; 80053; 81001; 83735; 85025; 85027; 87086; 87635; 93005; 96374; 97110; 97116; 97162; 97165; 97530; 97535; 99285; A9270; J0696; J1171; J1650; J7030

== ENCOUNTER 2024-12-16 16:45 | Emergency (ER) | payer OTHER, MEDICAID, SELFPAY ==
--- NOTE | ~2024-12-16 | XR_ITS ---
Clinical Indication: Cough AP and lateral views of the chest: Comparison: 11/20/2024 Findings: The lungs are clear, without evidence of focal consolidation or pleural effusion. Cardiome diastinal silhouette is within normal limits. Stable T5 compression fracture. Stable right rib fractu re deformities. Impression: Clear lungs. Stable T5 compression fracture and stable right rib fracture deformities. Reviewed, dictated and finalized at location . [facility] Impression: Clear lungs. Stable T5 compression fracture and stable right rib fracture deformities.
--- NOTE | ~2024-12-16 | CT_ITS ---
EXAMINATION: CT brain wo con DATE: 12/16/2024 22:49 INDICATION: ams, weakness . TECHNIQUE: Computed tomography (CT) of the head was performed without intravenous contrast. The mA wa s adjusted according to patient size. Iterative reconstruction technique was employed. The dose-lengt h product was 681.00 mGy-cm. COMPARISON: 11/20/2024. FINDINGS: No acute intracranial hemorrhage or extra-axial fluid collection. No hydrocephalus, mass, or herniation. No acute ischemic infarct. Unremarkable dural venous sinus attenuation. No acute osseous abnormality. Minimal aerated secretions in the right sphenoid sinus aerated spaces are clear. Moderate atrophy and chronic white matter change. Atherosclerotic intracranial calcification. Bilater al lens replacements. 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 Left medial occipital encephalomalacia. Old right caudate head lacunar infarct. IMPRESSION: No acute intracranial process. CT findings may suggest the presence of acute sphenoid sinusitis in the appropriate clinical context. Reviewed, dictated and finalized at location K. ORK OPERATIONS SPECIALIST IMPRESSION: No acute intracranial process. CT findings may suggest the presence of acute sphenoid sinusitis in the appropr iate clinical context.
--- OUTSIDE RECORDS SUMMARY | 2024-12-16 16:47 | XMS_ITS | CONTINUITY OF CARE DOCUMENT ---
Author Name bhanu drummond Address Unknown Organization [facility] Address [address] [place] [address] Phone [phone] Care Team Providers Care Business Operations Analyst Name Role Phone Miladis Murdock MD Unavailable [phone] Miladis Murdock MD Unavailable [phone] INSURANCE PROVIDERS Payer name Policy type / Coverage type [place] red constitution party ID HEALTHCARE AND FAMILY SERVICES Medicaid 3 [id number] [facility] Other [id number]
--- OUTSIDE RECORDS SUMMARY | 2024-12-16 16:47 | XMS_ITS | Continuity of Care Document ---
Author Organization [facility] Address [address] [place] [address] [place] [address] Phone Care Team Providers Care Web Content Specialist Name Role Phone Merritt OD, Corby Unavailable Unavailable Procedures Procedure Date Visual Field Examination(s) Eye Exam & Treatment Refraction Advance Directives Directive Yes / No Effective Date File Name No Information Encounters Encounter Description Practice Location Reason(s) For Visit Diagnoses Date Provider Providers Copied on Encounter [facility], [address] [place], [place] [address] [address], [place], [place], [id number], tel:[phone] [facility] No Information 7-200 7 Merritt OD Corby. [facility] [address] [address], [place], [address], [place]. tel:[phone] Referring Provider: Cyn[facility] Miles [facility] [address], [place], [address]. tel:[phone] [facility], [address] [place], [place] [address] [address], [place], [place], [id number], tel:[phone] [facility] No Information 3-200 7 Merritt OD Mark. Marie [facility] [address], [place], [address], [place]. tel:[phone] Family History Family Member Type Diagnosis Age At Onset No Information Payers Payer name Insurance type Covered libertarian ID Authoriza tion(s) [place] [id number] Social History Type Description Quantity Date Captured Comments Sex Female Smoking Status No Information Chief Complaint And Reason For Visit No Information Reason For Referral Reason For Referral No Information History Of Present Illness Encounter Date Complaint History Of Prese nt Illness No Information Functional Status Date Functional Assessmen t No Information Instructions Date Instruction Additional Infor mation No Information Assessments Type Assessment Date No Information Patient Care Teams Name Effective Dates (start - stop) Status Members No Information
[2024-12-16 17:28] VITALS: BP 141/74; PULSE 69; RESP 18; TEMP 36.7; O2SAT 97
--- OUTSIDE RECORDS SUMMARY | 2024-12-16 22:52 | XMS_ITS | Continuity of Care Document ---
Author Organization [facility] Address [address] [place] [address] [place] [address] Phone Care Team Providers Care Rubble Placer Name Role Phone Merritt OD, Corby Unavailable Unavailable Procedures Procedure Date Visual Field Examination(s) Eye Exam & Treatment Refraction Advance Directives Directive Yes / No Effective Date File Name No Information Encounters Encounter Description Practice Location Reason(s) For Visit Diagnoses Date Provider Providers Copied on Encounter [facility], [address] [place], [place] [address] [address], [place], [place], [id number], tel:[phone] [address] [facility] No Information 7-200 7 Merrtit OD Corby. [facility] [address] [address], [place], [address], [place]. tel:[phone] Referring Provider: Cyn[facility] Miles [facility] [address], [place], [address]. tel:[phone] [facility], [address] [place], [place] [address] [address], [place], [place], [id number], tel:[phone] [facility] No Information 3-200 7 Merritt OD Mark. Marie [facility] [address], [place], [address], [place]. tel:[phone] Family History Family Member Type Diagnosis Age At Onset No Information Payers Payer name Insurance type Covered alliance party ID Authoriza tion(s) [place] [id number] Social History Type Description Quantity Date Captured [...]
--- OUTSIDE RECORDS SUMMARY | 2024-12-16 22:52 | XMS_ITS | CONTINUITY OF CARE DOCUMENT ---
Author Name bhanu drummond Address Unknown Organization [facility] Address [address] [place] [address] Phone [phone] Care Team Providers Care Fitness Instructor Name Role Phone Miladis Murdock MD Unavailable Miladis Murdock MD Unavailable INSURANCE PROVIDERS Payer name Policy type / Coverage type [place] red democrat ID HEALTHCARE AND FAMILY SERVICES Medicaid 3 [id number] [facility] Other [id number]
[2024-12-16 23:14] LABS: Basophils Percent Auto 0.2 % (0.2-1.2); Eosinophils Percent Auto 0.4 % (0-4.4); Hematocrit 35.6 % (37.0-47.0); Hemoglobin 11.7 g/dL (12.0-15.0); Immature Granulocyte Absolute 0.01 K/mm3 (0.00-0.031); Immature Granulocyte Percent A 0.2 % (0-0.5); Lymphocytes Absolute Auto 2.19 K/mm3 (0.9-3.2); Lymphocytes Percent Auto 47.7 % (18.3-44.2); Mean Corpuscular HGB Conc 32.9 g/dl (32-36); Mean Corpuscular Hemoglobin 31.5 pg (26-34); Mean Corpuscular Volume 95.7 fl (80-100); Mean Platelet Volume 9.9 fl (7.4-10.4); Monocytes Absolute Auto 0.8 K/mm3 (0.1-0.6); Monocytes Percent Auto 16.6 % (2.6-8.5); Neutrophils Absolute Auto 1.6 K/mm3 (1.3-6.7); Neutrophils Percent Auto 34.9 % (45.5-73.1); Platelet Count Result 240 k/mm3 (150-375); Red Blood Count 3.72 M/mm3 (4.2-5.4); Red Cell Distribution Width 12.2 % (11.5-14.5); White Blood Count 4.6 K/mm3 (4.5-10.0)
[2024-12-16 23:16] VITALS: BP 156/90; PULSE 60; RESP 14; O2SAT 99
[2024-12-16 23:28] LABS: INR 1.1; Partial Thromboplastin Time 32.3 Seconds (22.3-36.8); Prothrombin Time 14.3 Seconds (11.1-14.7)
[2024-12-16 23:50] LABS: Influenza A QL RT-PCR Negative (Negative); Influenza B QL RT-PCR Negative (Negative); RSV RNA, RT-PCR Negative (Negative); SARS-CoV-2 RNA PCR Positive (Negative)
--- NOTE | 2024-12-17 00:28 | ED_ITS ---
HPI - Weakness General Chief complaint: Weakness Stated complaint: weakness Time Seen by Provider: 12/16/24 22:19 Source: patient Mode of arrival: EMS Limitations: no limitations History of Present Illness HPI Narrative: Patient is an 83-year-old female, with past medical history of cognitive impairment, who presents to the ED via EMS with report of weakness. Patient is a resident of [facility]. Per senior living report, patient was increasingly weak today and stated that she felt terrible. Sent here for further evaluation. Patient states she does not know why she is here. She denies any acute complaints or pain. Does report having a cough over the last 3-4 days. Denies fevers. Denies chest pain, shortness of breath. Related Data Home Medications ?Medication ?Instructions ?Recorded ?Confirmed ?Last Taken ?Type aspirin 81 mg tablet,delayed 81 mg PO DAILY 01/01/20 11/20/24 11/19/24 History release multivitamin 1 tablet PO DAILY 01/01/20 11/20/24 11/19/24 History cholecalciferol (vitamin D3) 25 25 mcg PO DAILY 02/19/21 11/20/24 11/19/24 History mcg (1,000 unit) capsule Allergies Allergy/AdvReac Type Severity Reaction Status Date / Time alendronate sodium Allergy Unknown Itching Verified 08/06/24 09:17 codeine Allergy Unknown Headache Verified 08/06/24 09:17 simvastatin Allergy Unknown Itching Verified 08/06/24 09:17 Review of Systems 2 Review of Systems: All systems reviewed & are unremarkable except as noted in HPI. All systems reviewed & are unremarkable except as noted in HPI and below PMFSH Past Medical History Medical History Back pain, chronic Carpal tunnel syndrome Dyslipidemia Osteoporosis Hyperparathyroidism Family History Family History Mother Family history of heart disease in male family member before age 55 Social History Social History Smoking packs per day: 1 Smoking cigarettes per day: 20.0 Years smoked: 50 Smoking pack-years: 50.00 Smoking status: Current every day smoker Second hand tobacco smoke exposure: No Alcohol intake: never Substance use: never Substance use type: does not use Do You Feel Safe in your Home?: Yes Lack of Transportation: No Lack of Food: Never True Current Housing: I Have Housing Concerned About Future Housing: No Difficulty Paying Gas/Electric Bills: No Difficulty Paying for Meds: No Currently Unemployed: No Education: High School Diploma/GED Difficulty w/ Childcare or Family Care: No Spiritual care concerns: No Exam 2 Narrative: GENERAL: Elderly but well appearing, thin, non-toxic, in no acute distress. HEAD: Normocephalic, atraumatic. RESPIRATORY: Airway patent, respirations nonlabored. Clear to auscultation bilaterally, no rales, rhonchi, wheezing. CARDIOVASCULAR: Regular rate and rhythm without murmurs, rubs, or gallops. ABDOMINAL: Soft, nontender, nondistended. Normoactive BS. MUSCULOSKELETAL: Moves all extremities. No gross deformities. SKIN: Warm, dry, normal color. NEURO: A&O X3. Speech clear. Cranial nerves II-XII grossly intact. Steady gait. No ataxic movements. Strength 5 of 5 in upper and lower extremities bilaterally. 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 No pronator drift. No focal deficits. PSYCHIATRIC: Appropriate mood and affect. Normal interaction. Course Vital Signs Vital signs: Vital Signs Temperature 98.0 F 12/16/24 17:28 Pulse Rate 69 12/16/24 17:28 Respiratory Rate 18 12/16/24 17:28 Blood Pressure 141/74 H 12/16/24 17:28 Pulse Oximetry 97 12/16/24 17:28 Temperature 98.0 F 12/16/24 17:28 Pulse Rate 60 12/16/24 23:16 Respiratory Rate 14 12/16/24 23:16 Blood Pressure 156/90 H 12/16/24 23:16 Pulse Oximetry 99 12/16/24 23:16 Oxygen Delivery Room Air 12/16/24 23:16 MDM - Weakness MDM Narrative Medical decision making narrative: Patient presented from local facility with report of possible weakness. Vital signs are stable upon arrival. Patient is in no acute distress. Resting comfortably upon my evaluation. Denies any acute complaints. Laboratory studies are fairly unremarkable. No leukocytosis. Stable H&H, consistent with previous records. Electrolytes WNL. Stable kidney function. UA with possible infection. Sent for cx. Will tx. Given dose of keflex and fluids in the ED. CT brain was negative for acute findings. Chest x-ray interpreted by myself also without acute findings. COVID testing did result positive. Patient was updated on lab and imaging results. She was able to ambulate in of the bathroom without issue. Has been able to eat without issue here. Feel she is safe for discharge back to facility. Discussed strict return precautions on paperwork. Patient is in agreement with plan. Feels comfortable going back to facility. Prescription for Keflex given. Discharged in stable condition. Vital signs stable at time of D/C. Medical Records Attestation: I reviewed the patient's medical records. Lab Data Attestation: I reviewed the patient's lab results. 12/16/24 23:07 12/16/24 23:07 Labs: Lab Results 12/16/24 12/17/24 Range/Units 23:07 01:08 WBC 4.6 (4.5-10.0) K/mm3 RBC 3.72 L (4.2-5.4) M/mm3 Hgb 11.7 L (12.0-15.0) g/dL Hct 35.6 L (37.0-47.0) % MCV 95.7 (80-100) fl MCH 31.5 (26-34) pg MCHC 32.9 (32-36) g/dl RDW 12.2 (11.5-14.5) % Plt Count 240 (150-375) k/mm3 MPV 9.9 (7.4-10.4) fl Immature Gran % (Auto) 0.2 (0-0.5) % Neut % (Auto) 34.9 L (45.5-73.1) % Lymph % (Auto) 47.7 H (18.3-44.2) % Isabela % (Auto) 16.6 H (2.6-8.5) % Eos % (Auto) 0.4 (0-4.4) % Baso % (Auto) 0.2 (0.2-1.2) % Lymph # (Auto) 2.19 (0.9-3.2) K/mm3 Isabela # (Auto) 0.8 H (0.1-0.6) K/mm3 Eos # (Auto) 0.0 (0-0.3) K/mm3 Baso # (Auto) 0.0 (0.0-0.1) K/mm3 Abs Immat Gran (auto) 0.01 (0.00-0.031) K/mm3 Absolute Neuts (auto) 1.6 (1.3-6.7) K/mm3 Absolute Nucleated RBC 0.000 (0.0-0.012) K/mm3 Nucleated RBC % 0.0 (0.0-0.2) % PT 14.3 (11.1-14.7) Seconds INR 1.1 APTT 32.3 (22.3-36.8) Seconds Sodium 138 (137-145) mmol/L Potassium 4.2 (3.4-5.0) mmol/L Chloride 108 H (98-107) mmol/L Carbon Dioxide 23 (22-30) mmol/L Anion Gap 7 (4-12) mmol/L BUN 14 (7-17) mg/dL Creatinine 0.64 L (0.7-1.0) mg/dL Estim Creat Clear Calc 40 ml/min Estimated GFR > 60 (59 - ) Glucose 89 (65-110) mg/dL Calcium 9.1 (8.4-10.2) mg/dL Total Bilirubin 0.6 (0.2-1.3) mg/dL AST 42 H (14-36) U/L ALT 28 (6-35) U/L Alkaline Phosphatase 143 H (38-126) U/L Total Protein 6.0 L (6.3-8.2) g/dL Albumin 3.0 L (3.5-5.1) g/dL Urine Color Dark yellow (Yellow) Urine Appearance Clear (Clear) Urine pH 7.0 (5.0-9.0) Ur Specific [place] 1.019 (1.001-1.035) Urine Protein 3+ H (Negative) mg/dL Urine Glucose (UA) Negative (Negative) mg/dL Urine Ketones Trace H (Negative) mg/dL Ur Blood (Man) Negative (Negative) Urine Nitrate Negative (Negative) Urine Bilirubin Negative (Negative) Urine Urobilinogen 1.0 (<2.0) mg/dL Add Ur Microanalysis Reviewed Leukocyte Esterase Rfl Trace H (Negative) EMMA/UL Urine RBC 11-20 H (0-2) /hpf Urine WBC 6-10 H (0-3) /hpf Ur Squamous Epith Cells Occasional (Few) /hpf Urine Bacteria None seen /hpf Urine Casts 11-20 Influenza A (RT-PCR) Negative (Negative) Influenza B (RT-PCR) Negative (Negative) RSV (RT-PCR) Negative (Negative) SARS-CoV-2 RNA (RT-PCR) Positive A (Negative) Imaging Data Attestation: I personally reviewed and interpreted this imaging study as follows: My impression: CXR: Clear Radiologist's impression: ITS Impressions Head CT 12/16/24 22:51 IMPRESSION: No acute intracranial process. CT findings may suggest the presence of acute sphenoid sinusitis in the appropriate clinical context. Discharge Plan Discharge Clinical Impression: COVID-19, Abnormal urinalysis Patient Disposition: NH Senior Living/Asst Living Condition: Stable Instructions: Antibiotic Form, Urinary Tract Infection in Women (ED), COVID-19 (Coronavirus Disease 2019) (ED), How to Recover from COVID-19 at Home (ED) Additional Instructions: Patient was diagnosed with COVID-19. Recommend patient isolate or wear a face mask to avoid spread of COVID. Recommend patient stay well hydrated, utilize Tylenol as needed for pain or fevers. Her urine showed signs of possible infection. Take antibiotics as prescribed. Follow-up with primary care doctor for further evaluation and urine culture results. Return patient to the ED if she experiences severe confusion, severe weakness, unable to keep down food or drink, chest pain, difficulty breathing, or any other symptoms of concern. Patient Language: American Prescriptions: New cephalexin 500 mg capsule 500 mg PO Q6H 7 Days Qty: 28 0RF No Action loperamide [Anti-Diarrheal (loperamide)] 2 mg tablet 2 mg PO Q6H PRN (Reason: loose stool) Qty: 30 0RF Rx Instructions: Initial: 4 mg, followed by 2 mg after each loose stool; maximum: 16 mg/day hydrocodone-acetaminophen 5-325 mg tablet 1 tablet PO Q4H PRN (Reason: pain) Qty: 7 0RF enoxaparin [Lovenox] 40 mg/0.4 mL syringe 40 mg subcut Q24H Qty: 12 1RF aspirin 81 mg tablet,delayed release (DR/EC) 81 mg PO DAILY multivitamin Tablet 1 tablet PO DAILY cholecalciferol (vitamin D3) 25 mcg (1,000 unit) capsule 25 mcg PO DAILY metoprolol succinate 50 mg tablet extended release 24 hr See Rx Instructions .ROUTE .COMPLEX Qty: 90 1RF Dose Instruction: TAKE 1 TABLET BY MOUTH EVERY DAY Rx Instructions: TAKE 1 TABLET BY MOUTH EVERY DAY meclizine 25 mg tablet See Rx Instructions .ROUTE .COMPLEX Qty: 180 0RF Dose Instruction: TAKE 1 TABLET BY MOUTH TWICE A DAY NEEDED FOR DIZZINESS Rx Instructions: TAKE 1 TABLET BY MOUTH TWICE A DAY NEEDED FOR DIZZINESS potassium chloride 10 mEq tablet extended release See Rx Instructions .ROUTE .COMPLEX Qty: 90 1RF Dose Instruction: TAKE 1 TABLET BY MOUTH EVERY DAY Rx Instructions: TAKE 1 TABLET BY MOUTH EVERY DAY Follow-up/Referrals: Herminio Ayala MD [Primary Care Provider] - Time of Disposition: 01:55
[2024-12-17 01:05] LABS: Alanine Aminotransferase 28 U/L (6-35); Alkaline Phosphatase 143 U/L (38-126); Anion Gap 7 mmol/L (4-12); Aspartate Amino Transferase 42 U/L (14-36); Bilirubin,Total 0.6 mg/dL (0.2-1.3); Blood Urea Nitrogen 14 mg/dL (7-17); Calcium 9.1 mg/dL (8.4-10.2); Carbon Dioxide 23 mmol/L (22-30); Chloride 108 mmol/L (98-107); Estimated CRCL calculation 40 ml/min; Estimated Glomerular Filt Rate > 60; Glucose 89 mg/dL (65-110); Potassium 4.2 mmol/L (3.4-5.0); Sodium 138 mmol/L (137-145)
[2024-12-17 01:28] LABS: Add Urine Microscopic? YES; Appearance Urine Clear (Clear); Bacteria Urine None Seen /hpf; Bilirubin Urine Negative (Negative); Blood Urine Negative (Negative); Color Urine Dark Yellow (Yellow); Glucose Urine UA Negative (Negative); Ketones Urine Trace mg/dL (Negative); Leukocyte Esterase Ur Trace LEU/UL (Negative); Need Manual Microscopic Reviewed; Nitrate Urine Negative (Negative); Protein Urine 3+ mg/dL (Negative); Specific Grav Ur 1.019 (1.001-1.035); Squamous Epithelial Cell Urine Occasional /hpf (Few)
[2024-12-17] MEDS: CEPHALEXIN 500 MG CAPSULE PO (02:07)
[2024-12-17] MEDS: SODIUM CHLORIDE 0.9% IV 1,000 ML 999 ML IV CONT (02:07)
[2024-12-17 03:37] VITALS: BP 122/60; PULSE 63; RESP 14; O2SAT 97
[2024-12-17 07:15] VITALS: BP 160/82; PULSE 60; RESP 14; O2SAT 100
[2024-12-17 09:01] VITALS: BP 134/88; PULSE 62; RESP 16; O2SAT 96
== END 2024-12-17 09:40 ==
PROVIDERS: Emergency Provider Physician Assistant; PCP Family Medicine
DX: U07.1 COVID-19 (principal); R82.998 Other abnormal findings in urine; E78.5 Hyperlipidemia, unspecified; E21.3 Hyperparathyroidism, unspecified; M81.0 Age-related osteoporosis without current pathological fracture; G31.84 Mild cognitive impairment of uncertain or unknown etiology; F17.210 Nicotine dependence, cigarettes, uncomplicated; Z79.82 Long term (current) use of aspirin; Z79.01 Long term (current) use of anticoagulants; R93.0 Abnormal findings on diagnostic imaging of skull and head, not elsewhere classified
CPT/HCPCS: 36415; 70450; 71046; 80053; 81001; 85025; 85610; 85730; 87086; 87637; 96360; 99284; A9270; J7030

== ENCOUNTER 2025-01-02 18:36 | Emergency (ER) | payer OTHER, MEDICAID, SELFPAY ==
[2025-01-02 18:47] VITALS: BP 120/84; PULSE 101; RESP 18; TEMP 35.7; O2SAT 98
[2025-01-02 18:55] VITALS: PULSE 99
[2025-01-02 18:56] VITALS: O2SAT 99
--- OUTSIDE RECORDS SUMMARY | 2025-01-02 19:24 | XMS_ITS | Continuity of Care Document ---
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 [facility] [address] [address], [place], [address], . tel:[phone] Referring Provider: Cynthia Miles OD [facility] [address], [place], [address]. tel:[phone] [facility], [address] [place], [place] [address], [place], [place], [id number], tel:[phone] [facility] No Information 3-200 7 Merritt OD Mark. [facility] [address], [place], [address], [place]. tel:[phone] Family History Family Member Type Diagnosis Age At Onset No Information Payers Payer name Insurance type Covered democrat ID Authoriza tion(s) [place] [id number] Social History Type Description Quantity Date Captured [...]
[2025-01-02 20:00] VITALS: BP 109/76; PULSE 94; RESP 18; O2SAT 98
--- NOTE | 2025-01-02 20:50 | ED.AMS ---
HPI - Altered Mental Status General Chief Complaint: Altered Mental Status Stated Complaint: altered mental status Time Seen by Provider: 01/02/25 19:07 History of Present Illness HPI narrative: Patient is an 84-year-old female who presents emergency department this evening due to concern for altered mental status. Patient is on pain medications, narcotics which she takes chronically and EMS did note that patient's pupils were pinpoint. They did administer 2 mg of Narcan which the patient did respond to. Patient is asleep, however, well easily arouses to name. She is answering all my questions appropriately, alert and oriented to person, place, time and situation and denying any complaints or symptoms at this time. Related Data Home Medications ?Medication ?Instructions ?Recorded ?Confirmed ?Last Taken ?Type aspirin 81 mg tablet,delayed 81 mg PO DAILY 01/01/20 12/30/24 11/19/24 History release multivitamin 1 tablet PO DAILY 01/01/20 12/30/24 11/19/24 History cholecalciferol (vitamin D3) 25 25 mcg PO DAILY 02/19/21 12/30/24 11/19/24 History mcg (1,000 unit) capsule Allergies Allergy/AdvReac Type Severity Reaction Status Date / Time alendronate sodium Allergy Unknown Itching Verified 12/30/24 11:01 codeine Allergy Unknown Headache Verified 12/30/24 11:01 simvastatin Allergy Unknown Itching Verified 12/30/24 11:01 Review of Systems Review of Systems: All systems are reviewed and are negative unless stated otherwise in the HPI. [facility] Past Medical History Medical History Back pain, chronic Carpal tunnel syndrome Dyslipidemia Osteoporosis Hyperparathyroidism Family History Family History Mother Family history of heart disease in male family member before age 55 Social History Social History Smoking packs per day: 1 Smoking cigarettes per day: 20.0 Years smoked: 50 Smoking pack-years: 50.00 Smoking status: Current every day smoker Second hand tobacco smoke exposure: No Alcohol intake: never Substance use: never Substance use type: does not use Do You Feel Safe in your Home?: Yes Lack of Transportation: No Lack of Food: Never True Current Housing: I Have Housing Concerned About Future Housing: No Difficulty Paying Gas/Electric Bills: No Difficulty Paying for Meds: No Currently Unemployed: No Education: High School Diploma/GED Difficulty w/ Childcare or Family Care: No Spiritual care concerns: No Exam Narrative: General: Alert, awake, afebrile, in no acute distress. HEENT: PERRL, no rhinorrhea, no post nasal drip, oropharynx clear. Neck: Trachea midline, no JVD, no lymphadenopathy. Cardiovascular: Regular rate and rhythm, no murmurs, rubs or gallops, no peripheral edema. Respiratory: Clear to auscultation bilaterally, no tachypnea, no wheezing, no rhonchi, no rubs, no respiratory distress. Abdomen: Soft, nontender, nondistended, no rebound, no guarding, no peritoneal signs. Musculoskeletal: No joint swelling or deformity, normal muscle tone. Skin: No rashes or petechia, no signs of infection. Neurological: Alert and oriented to person, place, and time. Follows all commands. No focal deficits, speech is clear and fluent. Course Vital Signs Vital signs: Vital Signs Temperature 96.3 F L 01/02/25 18:47 Pulse Rate 101 H 01/02/25 18:47 Respiratory Rate 18 01/02/25 18:47 Blood Pressure 120/84 01/02/25 18:47 Pulse Oximetry 98 01/02/25 18:47 Oxygen Delivery Room Air 01/02/25 18:47 Temperature 96.6 F L 01/02/25 22:19 Pulse Rate 84 01/02/25 22:19 Respiratory Rate 20 01/02/25 22:19 Blood Pressure 104/71 01/02/25 22:19 Pulse Oximetry 97 01/02/25 22:19 Oxygen Delivery Room Air 01/02/25 18:56 MDM - Altered Mental Status MDM Narrative Medical decision making narrative: The patient was evaluated by myself in the emergency department. History is obtained from EMS and physical exam was performed. External medical records were reviewed at this time. IV was established and pertinent tests were ordered. Patient was observed in our emergency department for 3 hours, on repeat examination, patient is alert and oriented to person, place, time and situation cell answering all my questions appropriately. Differential diagnosis considerations include infection, dehydration, daily opiate use. Comorbidities impacting this visit include chronic pain medication use. I have evaluated and discussed social determinants of health with the patient that could potentially impact subsequent diagnosis and treatment plans. On repeat assessment of the patient, reevaluation revealed that the patient is doing well and is in no acute distress. Patient symptoms have improved since she arrived to our emergency department. Repeat vital signs were all reviewed and noted to be stable. Differential diagnosis and treatment plan were discussed with the patient at bedside. Patient agrees with discussion and after shared medical decision making agrees with discharge. All questions were answered to the patient's satisfaction. Patient will follow up with her PCP in 3-5 days. Patient was provided with strict return precautions and instructed to return to the emergency department if any new or worsening symptoms develop. The patient was discharged in stable condition. Discharge Plan Discharge Clinical Impression: Adv eff opiates Patient Disposition: SNF Condition: Improved Instructions: Narcotic Safety (ED) Additional Instructions: Please follow-up with your family doctor within the next 3-5 days. Return to the ED if any new or worsening symptoms develop. Patient Language: Swazi Prescriptions: No Action loperamide [Anti-Diarrheal (loperamide)] 2 mg tablet 2 mg PO Q6H PRN (Reason: loose stool) Qty: 30 0RF Rx Instructions: Initial: 4 mg, followed by 2 mg after each loose stool; maximum: 16 mg/day cephalexin 500 mg capsule 500 mg PO Q6H 7 Days Qty: 28 0RF hydrocodone-acetaminophen 5-325 mg tablet 1 tablet PO Q4H PRN (Reason: pain) Qty: 7 0RF enoxaparin [Lovenox] 40 mg/0.4 mL syringe 40 mg subcut Q24H Qty: 12 1RF aspirin 81 mg tablet,delayed release (DR/EC) 81 mg PO DAILY multivitamin Tablet 1 tablet PO DAILY cholecalciferol (vitamin D3) 25 mcg (1,000 unit) capsule 25 mcg PO DAILY metoprolol succinate 50 mg tablet extended release 24 hr See Rx Instructions .ROUTE .COMPLEX Qty: 90 1RF Dose Instruction: TAKE 1 TABLET BY MOUTH EVERY DAY Rx Instructions: TAKE 1 TABLET BY MOUTH EVERY DAY meclizine 25 mg tablet See Rx Instructions .ROUTE .COMPLEX Qty: 180 0RF Dose Instruction: TAKE 1 TABLET BY MOUTH TWICE A DAY NEEDED FOR DIZZINESS Rx Instructions: TAKE 1 TABLET BY MOUTH TWICE A DAY NEEDED FOR DIZZINESS potassium chloride 10 mEq tablet extended release See Rx Instructions .ROUTE .COMPLEX Qty: 90 1RF Dose Instruction: TAKE 1 TABLET BY MOUTH EVERY DAY Rx Instructions: TAKE 1 TABLET BY MOUTH EVERY DAY Follow-up/Referrals: Herminio Ayala MD [Primary Care Provider] - 3 Days Time of Disposition: 20:51
--- NOTE | 2025-01-02 21:34 | PC.NURSE ---
Report to [facility]
--- NOTE | 2025-01-02 22:17 | PC.NURSE ---
Patient son updated plan to send patient back to [facility], sons concerns addressed and he was satisfied with plan to send her home
[2025-01-02 22:19] VITALS: BP 104/71; PULSE 84; RESP 20; TEMP 35.9; O2SAT 97
== END 2025-01-02 22:22 ==
PROVIDERS: Emergency Provider Emergency Medicine; PCP Family Medicine
DX: R41.82 Altered mental status, unspecified (principal); T40.605A Adverse effect of unspecified narcotics, initial encounter; E78.5 Hyperlipidemia, unspecified; E21.3 Hyperparathyroidism, unspecified; M81.0 Age-related osteoporosis without current pathological fracture; F17.210 Nicotine dependence, cigarettes, uncomplicated
CPT/HCPCS: 99284